=== PATIENT | female | born 1960 | race Caucasian/White ===

== ENCOUNTER → 2016-05-31 | Outpatient (CLI) | payer BC ==
[~2016-05-31] MED LIST: ACET30TAB PO; AMOXIL875 PO; BUPR150T3 PO; BUPR15TA PO; CELEBRE200 PO; COUM2.5T11 PO; CYMBALTA30 PO; DEPA500T2; DICL50TA2 PO; DRIS50002 PO; FLEXERIL10 PO; FOLI1TAB2 PO; LIPI20TA PO; MACROBID PO; METH2.5TA PO; NAPROSY500 PO; NEXI40CA PO; PAXI30TA11 PO; PAXI40TA; PAXIL40 PO; SKELAXIN40 PO; SOMA350 PO; SULF500T2 PO; TUMERIC PO; VICO5TAB; VICODIN PO; VITA500046 PO; ZITHROM500 PO; vit d
--- NOTE | 2016-06-04 09:56 | SLEEPCENT ---
DATE OF STUDY: 05/31/2016 ORDERING PROVIDER: Natty Pham NP Nocturnal polysomnography was performed for evaluation of sleep apnea syndrome symptoms in this patient with a history of snoring and nonrestorative sleep. 8 hours and 43 minutes of data were reviewed. There were 472 minutes of sleep identified. Sleep latency was normal at 9.5 minutes. Rapid eye movement (REM) sleep was delayed at 325 minutes. Sleep architecture improved late in the study after interventions were made. Overall sleep efficiency was 91%. The patient's electrocardiogram (EKG) showed a sinus rhythm with an average heart rate of 88 beats per minute. Electroencephalogram (EEG) showed reasonably normal waveforms for awake and sleep. There were 197 respiratory events identified of 10 seconds in duration or greater for an apnea-hypopnea index of 25. The events were primarily obstructive in nature. Having clearly established the presence of obstructive sleep apnea syndrome, testing was stopped shortly after midnight for the application of pressure therapy. The patient was fit with a ResMed Quattro full face mask of small size. 4 cm of water pressure was applied to the circuit, and the lights were extinguished. The patient quickly reestablished sleep. Sleep progression improved with pressure therapy. Respiratory events were fully suppressed with continuous positive airway pressure (CPAP) of +8, and REM rebound was demonstrated. Remaining measures of sleep physiology were normal. IMPRESSION: Severe obstructive sleep apnea syndrome (G47.33). Apnea-hypopnea index 25. RECOMMENDATION: Nightly use of pressure therapy at 8 cm of water should be sufficient to address the patient's respiratory events.
== END ==
LOC: M SLEEP 19:01
PROVIDERS: ATTEND Nurse Practitioner Adult Health
DX: G47.30 Sleep apnea, unspecified (principal)

== ENCOUNTER → 2016-06-26 | Outpatient (CLI) | payer BC ==
--- NOTE | 2016-06-28 07:06 | RADONC ---
RADIATION ONCOLOGY FOLLOWUP NOTE DATE: 06/26/2016 CHART NUMBER: [id number] DIAGNOSIS: Right breast cancer. STAGE: IIA, [id number] ECOG PERFORMANCE STATUS: 0 FOLLOWUP NOTE: Ms. Matute is a very pleasant, 56-year-old white female with the diagnosis of a stage IIA, [id number] poorly differentiated infiltrating ductal carcinoma of the right breast who is presenting to us today for routine followup visit 1 year of post completion of external beam radiation therapy. The patient presents today reporting that she is doing quite well with no complaints at this time related to her radiation therapy or disease. She has no breast or bone pain. REVIEW OF SYSTEMS: The patient's review of systems is noncontributory. Denies nausea, vomiting, fevers, chills, night sweats, diplopia, headaches, anxiety or depression, anorexia, weight loss, visual disturbances, chest pain, urinary or bowel difficulties, bone pain, or neurological problems. PHYSICAL EXAMINATION: The patient is a well-developed, well-nourished, 56-year-old female, in no acute distress. HEENT exam is normocephalic, atraumatic. Extraocular movements are intact. There is no palpable cervical, supraclavicular, infraclavicular, axillary, or inguinal lymphadenopathy present. Lungs are clear to auscultation and percussion. Heart has a regular rate and rhythm. Abdomen is benign with no hepatosplenomegaly, masses, or tenderness. Breast examination reveals no masses or discharge bilaterally. Skeletal examination reveals no tenderness to pressure or percussion of the bony skeleton. Extremities reveal no clubbing, cyanosis, or edema. Neurologic exam is grossly intact, as is the remainder of the physical examination. ASSESSMENT: The patient is clinically BECKA at this time and will be seen by us again in 6 months for further followup. She will also continue to be followed by her other physicians as well. cc: MD Ramesh Barboza MD *BANDAR Taylor
== END ==
LOC: M ONCR 06-05 14:11
PROVIDERS: ATTEND Radiology Radiation Oncology
DX: C50.411 Malignant neoplasm of upper-outer quadrant of right female breast (principal)

== ENCOUNTER 2016-07-01 09:15 | Outpatient (RCR) | payer BC | END 2016-07-02 | LOC: M PT 09:15 | PROVIDERS: ATTEND Orthopaedic Surgery | DX: Z51.89 Encounter for other specified aftercare (principal); Z47.89 Encounter for other orthopedic aftercare ==

== ENCOUNTER → 2016-07-04 | Outpatient (CLI) | payer BC ==
[2016-07-04 08:33] LABS: ALBUMIN/GLOBULIN RATIO 1.43 (1.00-1.93); ALKALINE PHOSPHATASE 131 U/L (45-117); ALT/SGPT 22 U/L (12-78); ANION GAP 8 MEQ/L (8-16); AST/SGOT 13 U/L (15-37); BILIRUBIN,TOTAL 0.5 MG/DL (0.2-1.0); BLOOD UREA NITROGEN 17 MG/DL (7-18); CALCIUM LEVEL 8.8 MG/DL (8.5-10.1); CARBON DIOXIDE LEVEL 27 MEQ/L (21-32); CHLORIDE LEVEL 108 MEQ/L (98-107); CHOLESTEROL LEVEL 167 MG/DL (<200); CREATININE FOR GFR 0.98 MG/DL (0.55-1.02); GLOMERULAR FILTRATION RATE > 60.0 (>51); GLUCOSE, FASTING 115 MG/DL (70-105); POTASSIUM SERUM 4.1 MEQ/L (3.5-5.1); SODIUM LEVEL 143 MEQ/L (136-145); TOTAL PROTEIN 6.8 GM/DL (6.4-8.2); TRIGLYCERIDES LEVEL 198 MG/DL (<150); URIC ACID 5.6 MG/DL (2.6-6.0)
== END ==
LOC: M LAB 07:43
PROVIDERS: ATTEND Nurse Practitioner Family
DX: M10.9 Gout, unspecified (principal)

== ENCOUNTER 2016-07-31 09:15 | Outpatient (RCR) | payer BC | END 2016-08-02 | LOC: M PT 09:15 | PROVIDERS: ATTEND Orthopaedic Surgery | DX: Z51.89 Encounter for other specified aftercare (principal); Z96.659 Presence of unspecified artificial knee joint ==

== ENCOUNTER 2016-08-29 07:55 | Outpatient (RCR) | payer BC | END 2016-09-01 | LOC: M PT 07:55 | PROVIDERS: ATTEND Orthopaedic Surgery | DX: Z51.89 Encounter for other specified aftercare (principal); Z96.651 Presence of right artificial knee joint ==

== ENCOUNTER 2016-10-01 07:45 | Outpatient (RCR) | payer BC | END 2016-10-02 | LOC: M PT 07:45 | PROVIDERS: ATTEND Orthopaedic Surgery | DX: Z51.89 Encounter for other specified aftercare (principal); Z47.89 Encounter for other orthopedic aftercare ==

== ENCOUNTER → 2016-10-02 | Outpatient (CLI) | payer BC ==
--- NOTE | 2016-10-02 17:40 | REP ---
DIAGNOSTIC MAMMOGRAM LEFT BREAST WITH LEFT BREAST ULTRASOUND: Diagnostic mammogram of the left breast is performed in the MLO and CC projections. The patient reports pain in the upper inner left breast. Patient has a history of right breast cancer. Left breast is unchanged in appearance with no mass or clustered microcalcifications. Real time sonographic evaluation of the left breast is performed in the upper inner aspect. Two tiny cysts are seen in this region up to 3 mm in diameter. No other mass is seen. IMPRESSION: ACR 2 benign. No mass or clustered microcalcifications on the mammogram. There is no mammographic or sonographic evidence of a suspicious mass in the region of the pain in the upper inner left breast. Clinical correlation and followup is recommended. Recommend followup bilateral mammogram December 2016. BI-RADS/ACR category 2 mammogram. Benign finding(s). Routine annual screening mammography (for women over age 40). This mammogram was interpreted with the aid of an FDA-approved computer-aided detection system. The patient states she had a clinical breast exam in 09/2016. The patient letter being requested is M2. Signed by Percy Manning MD 10/03/2016 07:08 P
== END ==
LOC: M RAD 14:07
PROVIDERS: ATTEND Internal Medicine Medical Oncology
DX: N64.4 Mastodynia (principal); Z85.3 Personal history of malignant neoplasm of breast

== ENCOUNTER 2016-10-03 07:43 | Outpatient (RCR) | payer BC ==
[2016-10-21] MEDS ORDERED: VITA50003 (10:25)
== END 2016-10-04 11:57 | disposition home or self-care (01) ==
LOC: M PT 07:43
PROVIDERS: ATTEND Orthopaedic Surgery
DX: Z51.89 Encounter for other specified aftercare (principal); Z96.651 Presence of right artificial knee joint; Z47.89 Encounter for other orthopedic aftercare

== ENCOUNTER → 2016-10-18 | Outpatient (CLI) | payer BC ==
[~2016-10-18] MED LIST changes: +ATOR1TAB21; +CIPRODEX AS; +ESOM1CAP5; +LEFL1TAB4; +PARO15TA; +VITA50003
[2016-10-18 15:32] LABS: FREE T4 0.89 NG/DL (0.76-1.46)
== END ==
LOC: M LAB 11:54
PROVIDERS: ATTEND Nurse Practitioner Family
DX: Z13.29 Encounter for screening for other suspected endocrine disorder (principal)

== ENCOUNTER 2016-10-21 10:13 | Emergency (ER) | payer BC ==
[~2016-10-21] VITALS: Ht 170.2 cm; Wt 101.5 kg
[~2016-10-21 10:13] MED LIST changes: -ATOR1TAB21; -CIPRODEX AS; -COUM2.5T11 PO; +COUM2.5T17 PO; -ESOM1CAP5; -FOLI1TAB2 PO; +FOLI1TAB4 PO; -LEFL1TAB4; -PARO15TA; -VITA50003
[2016-10-21] MEDS ORDERED: PARO15TA (10:25)
[2016-10-21] MEDS ORDERED: ATOR1TAB21 (10:25)
[2016-10-21] MEDS ORDERED: LEFL1TAB4 (10:25)
[2016-10-21] MEDS ORDERED: ESOM1CAP5 (10:25)
[2016-10-21] MEDS ORDERED: VITA1CAP40 (10:25)
[2016-10-21] MEDS ORDERED: CIPROFLOXACIN HC OTIC SUSPENSION AS ONE (13:15)
[2016-10-21] MEDS ORDERED: CIPRODEX AS (13:21)
[2016-10-21 13:28] VITALS: BP 135/90
== END 2016-10-21 13:30 | disposition home or self-care (01) ==
LOC: M ED 12:46
DX: S00.412A Abrasion of left ear, initial encounter (principal); H60.502 Unspecified acute noninfective otitis externa, left ear; X58.XXXA Exposure to other specified factors, initial encounter; Y92.89 Other specified places as the place of occurrence of the external cause; Y93.89 Activity, other specified; Y99.9 Unspecified external cause status

== ENCOUNTER → 2016-12-09 | Outpatient (CLI) | payer BC ==
[~2016-12-09] MED LIST changes: +ATOR1TAB21; +CIPRODEX AS; +ESOM1CAP5; +LEFL1TAB4; +PARO15TA; +VITA1CAP40
--- NOTE | 2016-12-09 11:36 | REP ---
BILATERAL MAMMOGRAM: Bilateral mammogram performed in the MLO and CC projections. Patient complains of pain. There is a history of right breast cancer in 2015. Moderate scattered fibroglandular tissue is again seen bilaterally, unchanged. Tiny stable nodular opacity is seen in the upper left breast. Patient has a history of left-sided complex cysts. No new mass is seen. No clustered microcalcifications are seen. IMPRESSION: ACR 2 benign. No mass or clustered microcalcifications. No new findings. Suggest followup mammogram in 1 year. BI-RADS/ACR category 2 mammogram. Benign finding(s). Routine annual screening mammography (for women over age 40). This mammogram was interpreted with the aid of an FDA-approved computer-aided detection system. A. Negative x-ray reports should not delay biopsy if a dominant or clinically suspicious mass is present. B. Four to eight percent of cancers are not identified by x-ray. C. Adenosis and dense breasts may obscure an underlying neoplasm. The patient states she had a clinical breast exam in 12/2016. The patient letter being requested is M2. Signed by Percy Manning MD 12/10/2016 08:39 A
== END ==
LOC: M RAD 10:16
PROVIDERS: ATTEND Nurse Practitioner Family
DX: C50.911 Malignant neoplasm of unspecified site of right female breast (principal); N64.4 Mastodynia

== ENCOUNTER → 2016-12-11 | Outpatient (CLI) | payer BC ==
--- NOTE | 2016-12-12 07:31 | RADONC ---
RADIATION ONCOLOGY FOLLOWUP NOTE DATE: 12/11/2016 CHART NUMBER: [id number] DIAGNOSIS: Right breast cancer. STAGE: IIA, G9H5vwM6. ECOG PERFORMANCE STATUS: 0 FOLLOWUP NOTE: Ms. Matute is a very pleasant 56-year-old white female with the diagnosis of a stage IIA, [id number] poorly differentiated infiltrating ductal carcinoma of the right breast who is presenting to us today for routine followup visit 1 year and 5 months post completion of external beam radiation therapy. The patient presents today reporting that she is doing quite well with no complaints at this time related to her radiation therapy or disease. She has no breast or bone pain. REVIEW OF SYSTEMS: The patient's review of systems is unremarkable. She denies nausea, vomiting, fevers, chills, night sweats, diplopia, headaches, anxiety or depression, anorexia, weight loss, visual disturbances, chest pain, urinary or bowel difficulties, bone pain, or neurological problems. PHYSICAL EXAMINATION: The patient is a well-developed, well-nourished white female in no acute distress. HEENT exam is normocephalic, atraumatic. Extraocular movements are intact. There is no palpable cervical, supraclavicular, infraclavicular, axillary, or inguinal lymphadenopathy present. Lungs are clear to auscultation and percussion. Heart has a regular rate and rhythm. Abdomen is benign with no hepatosplenomegaly, masses, or tenderness. Breast examination reveals no masses or discharge bilaterally. Skeletal examination reveals no tenderness to pressure or percussion of the bony skeleton. Extremities reveal no clubbing, cyanosis, or edema. Neurologic exam is grossly intact, as is the remainder of the physical examination. ASSESSMENT: The patient is clinically BECKA at this time and will be seen by us again in 6 months for further followup. She will also continue to be followed by her other physicians as well. cc: Felisha Rivera MD, FACP BANDAR Taylor MD
== END ==
LOC: M ONCR 14:38
PROVIDERS: ATTEND Radiology Radiation Oncology
DX: C50.411 Malignant neoplasm of upper-outer quadrant of right female breast (principal)

== ENCOUNTER → 2017-02-04 | Outpatient (CLI) | payer BC ==
[2017-02-04 10:56] LABS: ALBUMIN/GLOBULIN RATIO 1.25 (1.00-1.93); ALKALINE PHOSPHATASE 150 U/L (45-117); ALT/SGPT 37 U/L (12-78); ANION GAP 6 MEQ/L (8-16); AST/SGOT 15 U/L (15-37); BILIRUBIN,TOTAL 0.4 MG/DL (0.2-1.0); BLOOD UREA NITROGEN 13 MG/DL (7-18); CALCIUM LEVEL 9.3 MG/DL (8.5-10.1); CARBON DIOXIDE LEVEL 28 MEQ/L (21-32); CHLORIDE LEVEL 107 MEQ/L (98-107); CHOLESTEROL LEVEL 223 MG/DL (<200); CREATININE FOR GFR 0.86 MG/DL (0.55-1.02); GLOMERULAR FILTRATION RATE > 60.0 (>51); GLUCOSE, FASTING 114 MG/DL (70-105); POTASSIUM SERUM 3.9 MEQ/L (3.5-5.1); SODIUM LEVEL 141 MEQ/L (136-145); TOTAL PROTEIN 7.2 GM/DL (6.4-8.2); TRIGLYCERIDES LEVEL 448 MG/DL (<150)
== END ==
LOC: M LAB 07:51
PROVIDERS: ATTEND Nurse Practitioner Family
DX: E55.9 Vitamin D deficiency, unspecified (principal)

== ENCOUNTER → 2017-02-12 | Outpatient (CLI) | payer BC ==
[2017-02-12 09:42] LABS: BASO # 0.1 10^3/uL (0.0-0.2); BASO % 1.5 % (0.0-1.0); EOS # 0.3 10^3/uL (0.0-0.50); IMMATURE GRANULOCYTE % 0.3 % (0-0); LYMPH # 1.4 10^3/uL (1.5-4.5); LYMPH % 35.2 % (24.0-44.0); MEAN CORPUSCULAR HEMOGLOBIN 30.5 pg (27.0-33.0); MEAN CORPUSCULAR HGB CONC 34.2 g/dl (32.0-36.5); MEAN CORPUSCULAR VOLUME 89.4 fl (80.0-96.0); MONO # 0.5 10^3/uL (0.0-0.8); MONO % 12.1 % (0.0-5.0); NEUTROPHILS # 1.7 10^3/uL (1.8-7.7); NEUTROPHILS % 42.9 % (36.0-66.0); PLATELET COUNT, AUTOMATED 315 10^3/uL (150-450); RED CELL DISTRIBUTION WIDTH 12.6 % (11.5-14.5)
== END ==
LOC: M LAB 09:06
PROVIDERS: ATTEND Nurse Practitioner Family
DX: C50.911 Malignant neoplasm of unspecified site of right female breast (principal)

== ENCOUNTER → 2017-03-31 | Outpatient (CLI) | payer BC ==
[~2017-03-31] MED LIST changes: -ATOR1TAB21; +ATOR1TAB21 PO; -ESOM1CAP5; +ESOM1CAP5 PO; -LEFL1TAB4; +LEFL1TAB4 PO; +VITA100067 PO
--- NOTE | 2017-03-31 16:32 | ECGEPIP ---
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
== END ==
LOC: M EKG 15:02
PROVIDERS: ATTEND Physician Assistant
DX: G56.01 Carpal tunnel syndrome, right upper limb (principal)

== ENCOUNTER 2017-04-09 08:47 | Day surgery (SDC) | payer BC ==
[~2017-04-09] VITALS: Ht 170.2 cm; Wt 98.4 kg
[2017-04-09] MEDS ORDERED: LIDOCAINE 2% INJ 100 MG/5 ML SDV (FOR ANES.) As Ordered ONE (09:16)
[2017-04-09] MEDS ORDERED: PROPOFOL 200 MG/20 ML VIAL As Ordered ONE (09:16)
[2017-04-09] MEDS ORDERED: NS 1,000 ML IV ONE (09:30)
[2017-04-09] MEDS ORDERED: MULTCAP11 PO (09:47)
--- NOTE | 2017-04-09 10:41 | ROOR ---
Patient Name: Kate Matute Procedure Date: 04/09/2017 10:10 AM Date of : 1960 Age: 56 Room: [facility] Gender: Female Note Status: Finalized Procedure: Total Colonoscopy to Cecum + Biopsy Polypectomy Indications: Colon cancer screening in patient at increased risk: Colorectal cancer in mother, High risk colon cancer surveillance: Personal history of colonic polyps Providers: Easton Paz MD Referring MD: Kolby Malik NP Requesting Provider: Medicines: Monitored Anesthesia Care Complications: No immediate complications. Procedure: Pre-Anesthesia Assessment: - The heart rate, respiratory rate, oxygen saturations, blood pressure, adequacy of pulmonary ventilation, and response to care were monitored throughout the procedure. The Colonoscope was introduced through the anus and advanced to the cecum, identified by appendiceal orifice and ileocecal valve. The colonoscopy was performed without difficulty. The patient tolerated the procedure well. The quality of the bowel preparation was excellent. Findings: The perianal and digital rectal examinations were normal. Non-bleeding internal hemorrhoids were found during retroflexion. The hemorrhoids were small and Grade I (internal hemorrhoids that do not prolapse). Scattered small-mouthed diverticula were found in the recto-sigmoid colon and sigmoid colon. A small polyp was found at 50 cm proximal to the anus. The polyp was sessile. The polyp was removed with a jumbo cold forceps. Resection and retrieval were complete. A small polyp was found in the hepatic flexure. The polyp was sessile. The polyp was removed with a jumbo cold forceps. Resection and retrieval were complete. The exam was otherwise without abnormality on direct and retroflexion views. Impression: - Non-bleeding internal hemorrhoids. - Diverticulosis in the recto-sigmoid colon and in the sigmoid colon. - One small polyp at 50 cm proximal to the anus, removed with a jumbo cold forceps. Resected and retrieved. - One small polyp at the hepatic flexure, removed with a jumbo cold forceps. Resected and retrieved. - The examination was otherwise normal on direct and retroflexion views. - No additional abnormalities were found on retroflexion. Recommendation: - Patient has a contact number available for emergencies. The signs and symptoms of potential delayed complications were discussed with the patient. Return to normal activities tomorrow. Written discharge instructions were provided to the patient. - High fiber diet. - Discharge patient to home. - Continue present medications. - Await pathology results. - Telephone GI clinic for pathology results in 1 week. - Repeat colonoscopy in 5 years for surveillance based on pathology results. - Return to referring physician. - The findings and recommendations were discussed with the patient's family. Easton Paz MD Easton Paz MD 04/09/2017 10:40:55 AM This report has been signed electronically. Number of Addenda: 0 Note Initiated On: 04/09/2017 10:10 AM Estimated Blood Loss: Estimated blood loss: none.
[2017-04-09 11:20] VITALS: BP 117/65
== END 2017-04-09 11:17 | disposition home or self-care (01) ==
LOC: M OPP 08:47
PROVIDERS: ATTEND Internal Medicine Gastroenterology
DX: Z12.11 Encounter for screening for malignant neoplasm of colon (principal); Z86.010 Personal history of colon polyps; Z80.0 Family history of malignant neoplasm of digestive organs; Z83.71 Family history of colonic polyps; D12.5 Benign neoplasm of sigmoid colon; D12.3 Benign neoplasm of transverse colon; K64.0 First degree hemorrhoids; K57.30 Diverticulosis of large intestine without perforation or abscess without bleeding; E78.5 Hyperlipidemia, unspecified; Z85.3 Personal history of malignant neoplasm of breast; Z92.21 Personal history of antineoplastic chemotherapy; Z92.3 Personal history of irradiation; R12 Heartburn; K21.9 Gastro-esophageal reflux disease without esophagitis; K82.9 Disease of gallbladder, unspecified; M06.9 Rheumatoid arthritis, unspecified; F32.9 Major depressive disorder, single episode, unspecified; F41.9 Anxiety disorder, unspecified; G47.8 Other sleep disorders; G47.30 Sleep apnea, unspecified; R06.83 Snoring; Z96.652 Presence of left artificial knee joint; Z88.1 Allergy status to other antibiotic agents; Z91.048 Other nonmedicinal substance allergy status; Z79.899 Other long term (current) drug therapy; Z80.1 Family history of malignant neoplasm of trachea, bronchus and lung

== ENCOUNTER → 2017-05-15 | Outpatient (CLI) | payer BC ==
[2017-05-15 10:27] LABS: BASO # 0.1 10^3/uL (0.0-0.2); BASO % 1.2 % (0.0-1.0); EOS # 0.3 10^3/uL (0.0-0.50); EOS % 5.9 % (0.0-3.0); HEMATOCRIT 39.1 % (36.0-47.0); HEMOGLOBIN 13.3 g/dl (12.0-16.0); IMMATURE GRANULOCYTE % 0.2 % (0-0); LYMPH # 1.6 10^3/uL (1.5-4.5); LYMPH % 36.9 % (24.0-44.0); MEAN CORPUSCULAR HEMOGLOBIN 29.8 pg (27.0-33.0); MEAN CORPUSCULAR VOLUME 87.7 fl (80.0-96.0); MONO # 0.5 10^3/uL (0.0-0.8); MONO % 11.3 % (0.0-5.0); NEUTROPHILS # 1.9 10^3/uL (1.8-7.7); NEUTROPHILS % 44.5 % (36.0-66.0); PLATELET COUNT, AUTOMATED 323 10^3/uL (150-450); RED BLOOD COUNT 4.46 10^6/uL (4.00-5.40); RED CELL DISTRIBUTION WIDTH 12.6 % (11.5-14.5); WHITE BLOOD COUNT 4.2 10^3/uL (4.0-10.0)
[2017-05-15 10:48] LABS: ERYTHROCYTE SEDIMENTATION RATE 15 mm/hr (0-30)
[2017-05-15 10:50] LABS: ALT/SGPT 46 U/L (12-78); AST/SGOT 26 U/L (7-37); C REACTIVE PROTEIN QUANTITATIV < 0.30 MG/DL (0.00-0.30); GLOMERULAR FILTRATION RATE > 60.0 (>51)
== END ==
LOC: M LAB 10:00
DX: Z79.899 Other long term (current) drug therapy (principal)
CPT/HCPCS: 84460

== ENCOUNTER → 2017-06-05 | Outpatient (CLI) | payer BC | LOC: M RAD 10:53 | DX: R10.32 Left lower quadrant pain (principal); Z90.721 Acquired absence of ovaries, unilateral; Z90.710 Acquired absence of both cervix and uterus | CPT/HCPCS: 76856 ==

== ENCOUNTER → 2017-06-18 | Outpatient (CLI) | payer BC | LOC: M ONCR 11:12 | DX: Z08 Encounter for follow-up examination after completed treatment for malignant neoplasm (principal); Z85.3 Personal history of malignant neoplasm of breast | CPT/HCPCS: G0463 ==

== ENCOUNTER → 2017-07-14 | Outpatient (CLI) | payer BC | LOC: M SLEEP 19:32 | DX: G47.33 Obstructive sleep apnea (adult) (pediatric) (principal) | CPT/HCPCS: 95811 ==

== ENCOUNTER → 2017-08-07 | Outpatient (CLI) | payer BC ==
[2017-08-07 08:15] LABS: BASO # 0.1 10^3/uL (0.0-0.2); BASO % 1.3 % (0.0-1.0); EOS # 0.2 10^3/uL (0.0-0.50); EOS % 5.2 % (0.0-3.0); HEMATOCRIT 39.3 % (36.0-47.0); HEMOGLOBIN 13.3 g/dl (12.0-15.5); IMMATURE GRANULOCYTE % 0.3 % (0-3.0); LYMPH # 1.3 10^3/uL (1.5-4.5); MEAN CORPUSCULAR HEMOGLOBIN 30.3 pg (27.0-33.0); MEAN CORPUSCULAR HGB CONC 33.8 g/dl (32.0-36.5); MEAN CORPUSCULAR VOLUME 89.5 fl (80.0-96.0); MONO # 0.5 10^3/uL (0.0-0.8); MONO % 12.1 % (0.0-5.0); NEUTROPHILS # 1.9 10^3/uL (1.8-7.7); NEUTROPHILS % 48.1 % (36.0-66.0); PLATELET COUNT, AUTOMATED 304 10^3/uL (150-450); RED BLOOD COUNT 4.39 10^6/uL (4.00-5.40); RED CELL DISTRIBUTION WIDTH 12.6 % (11.5-14.5); WHITE BLOOD COUNT 3.9 10^3/uL (4.0-10.0)
[2017-08-07 08:42] LABS: ALBUMIN 3.9 GM/DL (3.2-5.2); ALBUMIN/GLOBULIN RATIO 1.15 (1.00-1.93); ALKALINE PHOSPHATASE 129 U/L (45-117); ALT/SGPT 56 U/L (12-78); ANION GAP 6 MEQ/L (8-16); AST/SGOT 29 U/L (7-37); BILIRUBIN,TOTAL 0.4 MG/DL (0.2-1.0); BLOOD UREA NITROGEN 15 MG/DL (7-18); CARBON DIOXIDE LEVEL 27 MEQ/L (21-32); CHLORIDE LEVEL 109 MEQ/L (98-107); CHOLESTEROL LEVEL 227 MG/DL (<200); CHOLESTEROL RISK RATIO 5.159 (<5); CREATININE FOR GFR 0.95 MG/DL (0.55-1.30); GLOMERULAR FILTRATION RATE > 60.0 (>51); GLUCOSE, FASTING 128 MG/DL (70-100); HDL CHOLESTEROL 44 MG/DL (>40); NON-HDL-C 183 MG/DL; POTASSIUM SERUM 4.1 MEQ/L (3.5-5.1); SODIUM LEVEL 142 MEQ/L (136-145); TOTAL PROTEIN 7.3 GM/DL (6.4-8.2); TRIGLYCERIDES LEVEL 476 MG/DL (<150); URIC ACID 4.8 MG/DL (2.6-6.0)
[2017-08-07 10:50] LABS: ESTIMATED AVERAGE GLUCOSE 128 MG/DL (60-110); HEMOGLOBIN A1c 6.1 %
[2017-08-07 11:09] LABS: TOTAL 25(OH) VITAMIN D 30.6 NG/ML (30.0-100.0)
== END ==
LOC: M LAB 07:52
DX: M10.9 Gout, unspecified (principal); E78.5 Hyperlipidemia, unspecified; R73.01 Impaired fasting glucose; E55.9 Vitamin D deficiency, unspecified
CPT/HCPCS: 84550

== ENCOUNTER → 2017-08-21 | Outpatient (CLI) | payer BC | LOC: M RAD 11:32 | DX: R10.9 Unspecified abdominal pain (principal) | CPT/HCPCS: 74018 ==

== ENCOUNTER → 2017-09-02 | Outpatient (CLI) | payer BC ==
[~2017-09-02] MED LIST changes: -ACET30TAB PO; -AMOXIL875 PO; -ATOR1TAB21 PO; -BUPR150T3 PO; -BUPR15TA PO; -CELEBRE200 PO; -CIPRODEX AS; -COUM2.5T17 PO; -CYMBALTA30 PO; -DEPA500T2; -DICL50TA2 PO; -DRIS50002 PO; -ESOM1CAP5 PO; -FLEXERIL10 PO; -FOLI1TAB4 PO; +GASTROGRAFIN SOLUTION 30ML (Q9963) As Ordered; +ISOVUE-370 76% 100ML VIAL (Q9967) As Ordered; -LEFL1TAB4 PO; -LIPI20TA PO; -MACROBID PO; -METH2.5TA PO; -NAPROSY500 PO; -NEXI40CA PO; -PARO15TA; -PAXI30TA11 PO; -PAXI40TA; -PAXIL40 PO; -SKELAXIN40 PO; -SOMA350 PO; -SULF500T2 PO; -TUMERIC PO; -VICO5TAB; -VICODIN PO; -VITA100067 PO; -VITA1CAP40; -VITA500046 PO; -ZITHROM500 PO; -vit d
== END ==
LOC: M RAD 12:25
DX: R10.32 Left lower quadrant pain (principal); K76.0 Fatty (change of) liver, not elsewhere classified; K57.90 Diverticulosis of intestine, part unspecified, without perforation or abscess without bleeding; E27.9 Disorder of adrenal gland, unspecified

== ENCOUNTER → 2017-12-01 | Outpatient (CLI) | payer BC ==
[2017-12-01 08:59] LABS: BASO # 0.1 10^3/uL (0.0-0.2); BASO % 1.4 % (0.0-1.0); EOS # 0.2 10^3/uL (0.0-0.50); EOS % 4.7 % (0.0-3.0); HEMATOCRIT 45.2 % (36.0-47.0); IMMATURE GRANULOCYTE % 0.2 % (0-3.0); LYMPH # 1.6 10^3/uL (1.5-4.5); LYMPH % 37.9 % (24.0-44.0); MEAN CORPUSCULAR HEMOGLOBIN 30.2 pg (27.0-33.0); MEAN CORPUSCULAR HGB CONC 33.2 g/dl (32.0-36.5); MEAN CORPUSCULAR VOLUME 91.1 fl (80.0-96.0); MONO # 0.5 10^3/uL (0.0-0.8); MONO % 12.3 % (0.0-5.0); NEUTROPHILS # 1.9 10^3/uL (1.8-7.7); NEUTROPHILS % 43.5 % (36.0-66.0); PLATELET COUNT, AUTOMATED 346 10^3/uL (150-450); RED BLOOD COUNT 4.96 10^6/uL (4.00-5.40); RED CELL DISTRIBUTION WIDTH 12.8 % (11.5-14.5); WHITE BLOOD COUNT 4.3 10^3/uL (4.0-10.0)
[2017-12-01 09:19] LABS: ALT/SGPT 65 U/L (12-78); AST/SGOT 34 U/L (7-37); C REACTIVE PROTEIN QUANTITATIV < 0.30 MG/DL (0.00-0.30); CREATININE FOR GFR 1.03 MG/DL (0.55-1.30); GLOMERULAR FILTRATION RATE 58.4 (>51)
[2017-12-01 10:08] LABS: ERYTHROCYTE SEDIMENTATION RATE 17 mm/hr (0-30)
== END ==
LOC: M LAB 07:59
DX: M06.9 Rheumatoid arthritis, unspecified (principal)
CPT/HCPCS: 84460

== ENCOUNTER → 2017-12-01 | Outpatient (CLI) | payer BC ==
[2017-12-01 08:58] LABS: BASO # 0.1 10^3/uL (0.0-0.2); BASO % 1.9 % (0.0-1.0); EOS # 0.2 10^3/uL (0.0-0.50); EOS % 4.3 % (0.0-3.0); HEMATOCRIT 43.2 % (36.0-47.0); HEMOGLOBIN 14.8 g/dl (12.0-15.5); LYMPH # 1.6 10^3/uL (1.5-4.5); LYMPH % 36.9 % (24.0-44.0); MEAN CORPUSCULAR HEMOGLOBIN 30.5 pg (27.0-33.0); MEAN CORPUSCULAR HGB CONC 34.3 g/dl (32.0-36.5); MEAN CORPUSCULAR VOLUME 89.1 fl (80.0-96.0); MONO # 0.6 10^3/uL (0.0-0.8); NEUTROPHILS # 1.9 10^3/uL (1.8-7.7); NEUTROPHILS % 43.9 % (36.0-66.0); PLATELET COUNT, AUTOMATED 356 10^3/uL (150-450); RED BLOOD COUNT 4.85 10^6/uL (4.00-5.40); RED CELL DISTRIBUTION WIDTH 12.6 % (11.5-14.5); WHITE BLOOD COUNT 4.2 10^3/uL (4.0-10.0)
[2017-12-01 09:25] LABS: TOTAL 25(OH) VITAMIN D 23.7 NG/ML (30.0-100.0)
[2017-12-01 09:54] LABS: ESTIMATED AVERAGE GLUCOSE 128 MG/DL (60-110); HEMOGLOBIN A1c 6.1 %
[2017-12-01 14:26] LABS: ALBUMIN 4.2 GM/DL (3.2-5.2); ALBUMIN/GLOBULIN RATIO 1.17 (1.00-1.93); ALKALINE PHOSPHATASE 128 U/L (45-117); ALT/SGPT 68 U/L (12-78); ANION GAP 14 MEQ/L (8-16); AST/SGOT 28 U/L (7-37); BILIRUBIN,TOTAL 0.3 MG/DL (0.2-1.0); BLOOD UREA NITROGEN 17 MG/DL (7-18); CALCIUM LEVEL 9.6 MG/DL (8.5-10.1); CARBON DIOXIDE LEVEL 22 MEQ/L (21-32); CHLORIDE LEVEL 107 MEQ/L (98-107); CHOLESTEROL LEVEL 226 MG/DL (<200); CREATININE FOR GFR 1.15 MG/DL (0.55-1.30); GLOMERULAR FILTRATION RATE 51.4 (>51); GLUCOSE, FASTING 128 MG/DL (70-100); HDL CHOLESTEROL 50 MG/DL (>40); NON-HDL-C 176 MG/DL; POTASSIUM SERUM 4.5 MEQ/L (3.5-5.1); SODIUM LEVEL 143 MEQ/L (136-145); TOTAL PROTEIN 7.8 GM/DL (6.4-8.2); TRIGLYCERIDES LEVEL 471 MG/DL (<150)
== END ==
LOC: M LAB 08:02
DX: M05.40 Rheumatoid myopathy with rheumatoid arthritis of unspecified site (principal)
CPT/HCPCS: 80053

== ENCOUNTER → 2017-12-10 | Outpatient (CLI) | payer BC | LOC: M ONCR 11:16 | DX: Z08 Encounter for follow-up examination after completed treatment for malignant neoplasm (principal); Z85.3 Personal history of malignant neoplasm of breast; Z92.3 Personal history of irradiation | CPT/HCPCS: G0463 ==

== ENCOUNTER → 2017-12-22 | Outpatient (CLI) | payer BC | LOC: M RAD 09:53 | DX: Z12.31 Encounter for screening mammogram for malignant neoplasm of breast (principal); N60.31 Fibrosclerosis of right breast; N60.32 Fibrosclerosis of left breast | CPT/HCPCS: 77067 ==

== ENCOUNTER → 2018-01-22 | Outpatient (CLI) | payer BC | LOC: M EKG 09:39 | DX: Z01.818 Encounter for other preprocedural examination (principal) | CPT/HCPCS: 93005 ==

== ENCOUNTER 2018-01-23 09:53 | Inpatient (IN) | payer BC ==
[2018-01-22] MEDS: ACETAMINOPHEN 650 MG SUPP PR (14:01)
[2018-01-23 10:18] LABS: HEMOGLOBIN 13.1 g/dl (12.0-15.5); MEAN CORPUSCULAR HEMOGLOBIN 30.3 pg (27.0-33.0); MEAN CORPUSCULAR HGB CONC 33.6 g/dl (32.0-36.5); MEAN CORPUSCULAR VOLUME 90.3 fl (80.0-96.0); PLATELET COUNT, AUTOMATED 279 10^3/uL (150-450); RED BLOOD COUNT 4.32 10^6/uL (4.00-5.40); WHITE BLOOD COUNT 3.9 10^3/uL (4.0-10.0)
[2018-01-23 11:01] LABS: ANION GAP 10 MEQ/L (8-16); BLOOD UREA NITROGEN 10 MG/DL (7-18); CALCIUM LEVEL 8.9 MG/DL (8.5-10.1); CARBON DIOXIDE LEVEL 22 MEQ/L (21-32); CHLORIDE LEVEL 110 MEQ/L (98-107); CREATININE FOR GFR 0.85 MG/DL (0.55-1.30); GLOMERULAR FILTRATION RATE > 60.0 (>51); GLUCOSE, FASTING 101 MG/DL (70-100); POTASSIUM SERUM 3.9 MEQ/L (3.5-5.1); SODIUM LEVEL 142 MEQ/L (136-145)
[2018-01-23] MEDS: LR 1,000 ML IV ×3 (11:40→18:52)
[2018-01-23] MEDS ORDERED: GLYCOPYRROLATE INJ 0.2 MG/ML 2 ML VIAL As Ordered (11:46)
[2018-01-23] MEDS ORDERED: KETOROLAC 60 MG/2 ML VIAL (J1885) As Ordered (11:46)
[2018-01-23] MEDS ORDERED: fentaNYL 100 MCG/2 ML INJECTION (J3010) As Ordered (11:46)
[2018-01-23] MEDS ORDERED: ONDANSETRON 4MG/2ML VIAL (J2405) As Ordered (11:46)
[2018-01-23] MEDS ORDERED: NEOSTIGMINE 10 MG/10 ML VIAL (J2710) As Ordered (11:46)
[2018-01-23] MEDS ORDERED: PROPOFOL 200 MG/20 ML VIAL As Ordered (11:46)
[2018-01-23] MEDS ORDERED: LIDOCAINE 2% INJ 100 MG/5 ML SDV (FOR ANES.) As Ordered (11:46)
[2018-01-23] MEDS ORDERED: MIDAZOLAM INJ 2 MG/2 ML VIAL (J2250) As Ordered (11:46)
[2018-01-23] MEDS ORDERED: dexameTHASONE 4 MG/ML 1ML VIAL (J1100) As Ordered (11:46)
[2018-01-23] MEDS ORDERED: ROCURONIUM BROMIDE 50 MG/5 ML VIAL As Ordered ×2 (11:46→15:09)
[2018-01-23] MEDS: ACETAMINOPHEN 650 MG SUPP As Ordered (13:31)
[2018-01-23] MEDS: ERTAPENEM 1 GM INJ (INVanz) (J1335) As Ordered (14:53)
[2018-01-23] MEDS: BUPIVACAINE/EPIN 0.25% 30 ML VIAL As Ordered (15:35)
[2018-01-23] MEDS ORDERED: NORCO, ANEXSIA 5/325MG TABLET (HYDROcodone/ACETAMINOPHEN) PO ×2 (16:30)
[2018-01-23] MEDS ORDERED: MORPHINE 4 MG/ML 1ML VIAL/SYRINGE (J2270) IV (16:30)
[2018-01-23] MEDS ORDERED: PERCOCET 5MG/325MG TAB PO (17:00)
[2018-01-23] MEDS ORDERED: fentaNYL 100 MCG/2 ML INJECTION (J3010) IV (17:00)
[2018-01-23] MEDS ORDERED: MEPERIDINE INJ 25 MG/ML VIAL (J2175) IV (17:00)
[2018-01-23] MEDS ORDERED: METOCLOPRAMIDE INJ 10MG/2ML VIAL (J2765) IV (17:00)
[2018-01-23] MEDS ORDERED: ONDANSETRON 4MG/2ML VIAL (J2405) IV (17:00)
[2018-01-23] MEDS: ONDANSETRON 4MG/2ML VIAL (J2405) IV (19:55)
[2018-01-23] MEDS: ATORVASTATIN 20 MG TAB PO (21:01)
[2018-01-23] MEDS: SENOKOT S TAB PO (21:01)
[2018-01-23] MEDS: ACETAMINOPHEN TAB 650MG DOSE (2X325MG) PO (21:08)
[2018-01-24] MEDS: LR 1,000 ML IV ×2 (05:00→18:11)
[2018-01-24] MEDS: ACETAMINOPHEN TAB 650MG DOSE (2X325MG) PO ×2 (05:12→14:19)
[2018-01-24 06:15] LABS: BASO % 0.2 % (0.0-1.0); HEMATOCRIT 36.2 % (36.0-47.0); HEMOGLOBIN 12.2 g/dl (12.0-15.5); IMMATURE GRANULOCYTE % 0.1 % (0-3.0); LYMPH # 1.2 10^3/uL (1.5-4.5); LYMPH % 12.5 % (24.0-44.0); MEAN CORPUSCULAR HEMOGLOBIN 30.5 pg (27.0-33.0); MEAN CORPUSCULAR HGB CONC 33.7 g/dl (32.0-36.5); MEAN CORPUSCULAR VOLUME 90.5 fl (80.0-96.0); MONO # 0.7 10^3/uL (0.0-0.8); MONO % 7.7 % (0.0-5.0); NEUTROPHILS # 7.3 10^3/uL (1.8-7.7); NEUTROPHILS % 79.5 % (36.0-66.0); PLATELET COUNT, AUTOMATED 245 10^3/uL (150-450); RED CELL DISTRIBUTION WIDTH 13.1 % (11.5-14.5); WHITE BLOOD COUNT 9.2 10^3/uL (4.0-10.0)
[2018-01-24 06:39] LABS: ANION GAP 8 MEQ/L (8-16); BLOOD UREA NITROGEN 12 MG/DL (7-18); CALCIUM LEVEL 8.2 MG/DL (8.5-10.1); CARBON DIOXIDE LEVEL 27 MEQ/L (21-32); CHLORIDE LEVEL 107 MEQ/L (98-107); CREATININE FOR GFR 1.05 MG/DL (0.55-1.30); GLOMERULAR FILTRATION RATE 57.1 (>51); GLUCOSE, FASTING 145 MG/DL (70-100); POTASSIUM SERUM 4.4 MEQ/L (3.5-5.1); SODIUM LEVEL 142 MEQ/L (136-145)
[2018-01-24] MEDS: PANTOPRAZOLE 40MG INJ (PROTONIX) (C9113) IV (09:01)
[2018-01-24] MEDS: VITAMIN D 1,000 INTERNATIONAL UNITS TABLET PO (09:02)
[2018-01-24] MEDS: buPROPion **XL** TABLET 150MG (WELLBUTRIN XL) PO (09:02)
[2018-01-24] MEDS: KETOROLAC 30 MG/ML VIAL (J1885) IV ×3 (09:02→21:13)
[2018-01-24] MEDS: SENOKOT S TAB PO ×2 (09:02→21:12)
[2018-01-24] MEDS: PARoxetine 10MG TABLET PO (09:02)
[2018-01-24] MEDS: ENOXAPARIN 40 MG/0.4 ML SYRINGE (J1650) SC (09:43)
[2018-01-24] MEDS: ERTAPENEM SODIUM 1 GM in NS MINI-BAG PLUS 50 ML IV (14:20)
[2018-01-24] MEDS: ATORVASTATIN 20 MG TAB PO (21:12)
[2018-01-25] MEDS: KETOROLAC 30 MG/ML VIAL (J1885) IV ×4 (03:13→21:03)
[2018-01-25 07:36] LABS: BASO % 0.3 % (0.0-1.0); EOS # 0.1 10^3/uL (0.0-0.50); EOS % 1.3 % (0.0-3.0); HEMATOCRIT 34.9 % (36.0-47.0); HEMOGLOBIN 11.6 g/dl (12.0-15.5); IMMATURE GRANULOCYTE % 0.5 % (0-3.0); LYMPH # 1.2 10^3/uL (1.5-4.5); LYMPH % 13.1 % (24.0-44.0); MEAN CORPUSCULAR HEMOGLOBIN 30.4 pg (27.0-33.0); MEAN CORPUSCULAR HGB CONC 33.2 g/dl (32.0-36.5); MEAN CORPUSCULAR VOLUME 91.6 fl (80.0-96.0); MONO # 0.5 10^3/uL (0.0-0.8); MONO % 5.4 % (0.0-5.0); NEUTROPHILS # 7.5 10^3/uL (1.8-7.7); NEUTROPHILS % 79.4 % (36.0-66.0); PLATELET COUNT, AUTOMATED 239 10^3/uL (150-450); RED BLOOD COUNT 3.81 10^6/uL (4.00-5.40); RED CELL DISTRIBUTION WIDTH 13.3 % (11.5-14.5); WHITE BLOOD COUNT 9.5 10^3/uL (4.0-10.0)
[2018-01-25] MEDS: ACETAMINOPHEN TAB 650MG DOSE (2X325MG) PO ×2 (07:52→14:09)
[2018-01-25 08:08] LABS: ANION GAP 9 MEQ/L (8-16); BLOOD UREA NITROGEN 10 MG/DL (7-18); CALCIUM LEVEL 8.6 MG/DL (8.5-10.1); CARBON DIOXIDE LEVEL 24 MEQ/L (21-32); CHLORIDE LEVEL 108 MEQ/L (98-107); CREATININE FOR GFR 0.86 MG/DL (0.55-1.30); GLOMERULAR FILTRATION RATE > 60.0 (>51); GLUCOSE, FASTING 120 MG/DL (70-100); SODIUM LEVEL 141 MEQ/L (136-145)
[2018-01-25 08:09] LABS: POTASSIUM SERUM 3.4 MEQ/L (3.5-5.1)
[2018-01-25] MEDS: SENOKOT S TAB PO ×2 (09:16→20:05)
[2018-01-25] MEDS: PANTOPRAZOLE 40MG TAB (PROTONIX) PO (09:16)
[2018-01-25] MEDS: VITAMIN D 1,000 INTERNATIONAL UNITS TABLET PO (09:16)
[2018-01-25] MEDS: buPROPion **XL** TABLET 150MG (WELLBUTRIN XL) PO (09:16)
[2018-01-25] MEDS: PARoxetine 10MG TABLET PO (09:16)
[2018-01-25] MEDS: ENOXAPARIN 40 MG/0.4 ML SYRINGE (J1650) SC (09:16)
[2018-01-25] MEDS: LR 1,000 ML IV (09:17)
[2018-01-25] MEDS: POTASSIUM CHLORIDE 10 MEQ SR TABLET PO ×2 (10:54→14:10)
[2018-01-25] MEDS: ERTAPENEM SODIUM 1 GM in NS MINI-BAG PLUS 50 ML IV (14:10)
[2018-01-25] MEDS: SLF 3 ML SYR IV ×2 (14:10→21:02)
[2018-01-25] MEDS: ATORVASTATIN 20 MG TAB PO (21:02)
[2018-01-26] MEDS: SLF 3 ML SYR IV ×2 (03:47→06:00)
[2018-01-26] MEDS: KETOROLAC 30 MG/ML VIAL (J1885) IV (03:47)
[2018-01-26] MEDS: PANTOPRAZOLE 40MG TAB (PROTONIX) PO (08:29)
[2018-01-26] MEDS: SENOKOT S TAB PO (08:29)
[2018-01-26] MEDS: PARoxetine 10MG TABLET PO (08:29)
[2018-01-26] MEDS: buPROPion **XL** TABLET 150MG (WELLBUTRIN XL) PO (08:29)
[2018-01-26] MEDS: VITAMIN D 1,000 INTERNATIONAL UNITS TABLET PO (08:29)
[2018-01-26] MEDS: ENOXAPARIN 40 MG/0.4 ML SYRINGE (J1650) SC (08:32)
== END 2018-01-26 10:30 | disposition home or self-care (01) | DRG 513 ==
LOC: M SDC 09:53 → M PED 17:53
PROC: 0UT14ZZ Resection of Left Ovary, Percutaneous Endoscopic Approach (ICD-10-PCS; principal; 2018-01-23 12:35)
PROC: 0UB64ZZ Excision of Left Fallopian Tube, Percutaneous Endoscopic Approach (ICD-10-PCS; 2018-01-23 12:35)
PROC: 0DNU4ZZ Release Omentum, Percutaneous Endoscopic Approach (ICD-10-PCS; 2018-01-23 12:35)
PROC: 0DQN4ZZ Repair Sigmoid Colon, Percutaneous Endoscopic Approach (ICD-10-PCS; 2018-01-23 13:44)
DX: N83.202 Unspecified ovarian cyst, left side (principal); N73.6 Female pelvic peritoneal adhesions (postinfective); Z85.3 Personal history of malignant neoplasm of breast; Z92.3 Personal history of irradiation; Z90.721 Acquired absence of ovaries, unilateral; N83.8 Other noninflammatory disorders of ovary, fallopian tube and broad ligament; K91.72 Accidental puncture and laceration of a digestive system organ or structure during other procedure

== ENCOUNTER → 2018-02-10 | Outpatient (CLI) | payer BC ==
[2018-02-10 15:40] LABS: HEMATOCRIT 35.3 % (36.0-47.0); HEMOGLOBIN 11.5 g/dl (12.0-15.5); MEAN CORPUSCULAR HEMOGLOBIN 29.9 pg (27.0-33.0); MEAN CORPUSCULAR HGB CONC 32.6 g/dl (32.0-36.5); MEAN CORPUSCULAR VOLUME 91.7 fl (80.0-96.0); PLATELET COUNT, AUTOMATED 535 10^3/uL (150-450); RED BLOOD COUNT 3.85 10^6/uL (4.00-5.40); RED CELL DISTRIBUTION WIDTH 12.9 % (11.5-14.5); WHITE BLOOD COUNT 9.1 10^3/uL (4.0-10.0)
[2018-02-10 16:24] LABS: ALBUMIN/GLOBULIN RATIO 0.79 (1.00-1.93); ALKALINE PHOSPHATASE 234 U/L (45-117); ALT/SGPT 74 U/L (12-78); ANION GAP 7 MEQ/L (8-16); AST/SGOT 45 U/L (7-37); BILIRUBIN,TOTAL 0.2 MG/DL (0.2-1.0); BLOOD UREA NITROGEN 14 MG/DL (7-18); C REACTIVE PROTEIN QUANTITATIV 8.23 MG/DL (0.00-0.30); CALCIUM LEVEL 8.8 MG/DL (8.5-10.1); CARBON DIOXIDE LEVEL 28 MEQ/L (21-32); CHLORIDE LEVEL 106 MEQ/L (98-107); CREATININE FOR GFR 0.95 MG/DL (0.55-1.30); GLOMERULAR FILTRATION RATE > 60.0 (>51); GLUCOSE, FASTING 107 MG/DL (70-100); SODIUM LEVEL 141 MEQ/L (136-145); TOTAL PROTEIN 6.8 GM/DL (6.4-8.2)
== END ==
LOC: M LAB 14:50
DX: S36.50 Unspecified injury of colon (principal); X58.XXXS Exposure to other specified factors, sequela
CPT/HCPCS: 80053

== ENCOUNTER → 2018-02-10 | Outpatient (CLI) | payer BC ==
[2018-02-10 15:39] LABS: BASO # 0.1 10^3/uL (0.0-0.2); BASO % 0.6 % (0.0-1.0); EOS # 0.3 10^3/uL (0.0-0.50); EOS % 3.1 % (0.0-3.0); HEMATOCRIT 36.1 % (36.0-47.0); HEMOGLOBIN 11.8 g/dl (12.0-15.5); IMMATURE GRANULOCYTE % 0.3 % (0-3.0); LYMPH # 1.9 10^3/uL (1.5-4.5); LYMPH % 20.3 % (24.0-44.0); MEAN CORPUSCULAR HGB CONC 32.7 g/dl (32.0-36.5); MEAN CORPUSCULAR VOLUME 91.9 fl (80.0-96.0); MONO # 1.1 10^3/uL (0.0-0.8); MONO % 11.8 % (0.0-5.0); NEUTROPHILS # 6.1 10^3/uL (1.8-7.7); NEUTROPHILS % 63.9 % (36.0-66.0); PLATELET COUNT, AUTOMATED 535 10^3/uL (150-450); RED BLOOD COUNT 3.93 10^6/uL (4.00-5.40); RED CELL DISTRIBUTION WIDTH 12.8 % (11.5-14.5); WHITE BLOOD COUNT 9.5 10^3/uL (4.0-10.0)
[2018-02-10 16:12] LABS: ERYTHROCYTE SEDIMENTATION RATE 78 mm/hr (0-30)
[2018-02-10 16:23] LABS: ALT/SGPT 76 U/L (12-78); AST/SGOT 43 U/L (7-37); C REACTIVE PROTEIN QUANTITATIV 7.92 MG/DL (0.00-0.30); CREATININE FOR GFR 0.91 MG/DL (0.55-1.30); GLOMERULAR FILTRATION RATE > 60.0 (>51)
== END ==
LOC: M LAB 14:47
DX: M06.9 Rheumatoid arthritis, unspecified (principal)
CPT/HCPCS: 85652

== ENCOUNTER 2018-03-05 07:56 | Emergency (ER) | payer BC ==
[2018-03-05] MEDS: NS 1,000 ML IV (09:31)
[2018-03-05 09:42] LABS: BASO # 0.1 10^3/uL (0.0-0.2); BASO % 0.8 % (0.0-1.0); EOS # 0.2 10^3/uL (0.0-0.50); EOS % 2.6 % (0.0-3.0); HEMATOCRIT 35.4 % (36.0-47.0); HEMOGLOBIN 11.3 g/dl (12.0-15.5); IMMATURE GRANULOCYTE % 0.5 % (0-3.0); LYMPH # 1.3 10^3/uL (1.5-4.5); LYMPH % 17.6 % (24.0-44.0); MEAN CORPUSCULAR HEMOGLOBIN 28.5 pg (27.0-33.0); MEAN CORPUSCULAR HGB CONC 31.9 g/dl (32.0-36.5); MEAN CORPUSCULAR VOLUME 89.2 fl (80.0-96.0); MONO # 0.5 10^3/uL (0.0-0.8); MONO % 6.8 % (0.0-5.0); NEUTROPHILS # 5.2 10^3/uL (1.8-7.7); NEUTROPHILS % 71.7 % (36.0-66.0); PLATELET COUNT, AUTOMATED 433 10^3/uL (150-450); RED BLOOD COUNT 3.97 10^6/uL (4.00-5.40); RED CELL DISTRIBUTION WIDTH 13.8 % (11.5-14.5); WHITE BLOOD COUNT 7.3 10^3/uL (4.0-10.0)
[2018-03-05 09:58] LABS: KETONE, URINE AUTO RFX NEGATIVE (NEGATIVE); LEUKOCYTE ESTERASE UR AUTO RFX NEGATIVE (NEGATIVE); MUCUS, URINE RFX SMALL (NEGATIVE); NITRITE, URINE AUTO RFX NEGATIVE (NEGATIVE); RBC, URINE AUTO RFX 0 /HPF (0-3); SPECIFIC GRAVITY UR AUTO RFX 1.024 (1.002-1.035); SQUAM EPITHELIAL CELL UR AURFX 2 /HPF (0-6); WBC, URINE AUTO RFX 0 /HPF (0-3)
[2018-03-05 10:12] LABS: ANION GAP 8 MEQ/L (8-16); BLOOD UREA NITROGEN 13 MG/DL (7-18); CARBON DIOXIDE LEVEL 26 MEQ/L (21-32); CHLORIDE LEVEL 105 MEQ/L (98-107); CREATININE FOR GFR 0.84 MG/DL (0.55-1.30); GLOMERULAR FILTRATION RATE > 60.0 (>51); GLUCOSE, FASTING 172 MG/DL (70-100); POTASSIUM SERUM 4.3 MEQ/L (3.5-5.1); SODIUM LEVEL 139 MEQ/L (136-145)
[2018-03-05] MEDS ORDERED: ISOVUE-370 76% 100ML VIAL (Q9967) As Ordered (10:23)
[2018-03-05] MEDS: LIDOCAINE W/EPINEPHRINE 1% 20ML VIAL SC (13:09)
== END 2018-03-05 13:52 | disposition home or self-care (01) ==
LOC: M ED 07:56
DX: L76.34 Postprocedural seroma of skin and subcutaneous tissue following other procedure (principal); G47.30 Sleep apnea, unspecified; Z87.440 Personal history of urinary (tract) infections; M51.26 Other intervertebral disc displacement, lumbar region; K21.9 Gastro-esophageal reflux disease without esophagitis; F32.9 Major depressive disorder, single episode, unspecified; F41.9 Anxiety disorder, unspecified
CPT/HCPCS: Q9967

== ENCOUNTER → 2018-03-25 | Outpatient (REF) | payer BC | LOC: M LAB REF 12:15 | DX: L72.0 Epidermal cyst (principal) | CPT/HCPCS: 88305 ==

== ENCOUNTER → 2018-04-06 | Outpatient (CLI) | payer BC | LOC: M RAD 12:43 | DX: M25.522 Pain in left elbow (principal) | CPT/HCPCS: 73080 ==

== ENCOUNTER → 2018-04-09 | Outpatient (CLI) | payer BC | LOC: M RAD 12:12 | DX: M25.532 Pain in left wrist (principal); M70.22 Olecranon bursitis, left elbow | CPT/HCPCS: 73110 ==

== ENCOUNTER → 2018-04-17 | Outpatient (CLI) | payer BC ==
[~2018-04-17] MED LIST changes: +ACET30TAB PO; +AMOXIL875 PO; +APPLTAB2 PO; +ATOR1TAB21 PO; +BUPR150T3 PO; +BUPR15TA PO; +CELEBRE200 PO; +CIPR-249 PO; +CIPRODEX AS; +COUM2.5T17 PO; +CYMBALTA30 PO; +DEPA500T2; +DICL50TA2 PO; +DRIS50003 PO; +ESOM1CAP5 PO; +FLAG500T PO; +FLAX10002 PO; +FLEXERIL10 PO; +FOLI1TAB5 PO; -GASTROGRAFIN SOLUTION 30ML (Q9963) As Ordered; -ISOVUE-370 76% 100ML VIAL (Q9967) As Ordered; +LEFL1TAB4 PO; +LIPI20TA PO; +LOPI600T PO; +MACROBID PO; +METH2.5T48 PO; +MULTCAP11 PO; +NAPROSY500 PO; +NEXI40CA PO; +PARO15TA; +PAXI30TA11 PO; +PAXI40TA; +PAXIL40 PO; +PRED5TA; +SKELAXIN40 PO; +SOMA350 PO; +SULF500T2 PO; +TUMERIC PO; +TURM500T PO; +VICO5TAB; +VICODIN PO; +VITA100067 PO; +VITA500046 PO; +VITA50005; +ZITHROM500 PO; +vit d
--- NOTE | 2018-04-17 18:43 | REP ---
MRI ELBOW: Multiple sequences were obtained in the axial, coronal and sagittal planes. There is mild fluid in the region of the acromion bursa compatible with mild olecranon bursitis. Adjacent triceps tendon is intact. The biceps, brachialis, brachial radialis demonstrate no abnormal signal. The medial and lateral collateral ligaments appear intact. No abnormal signal is seen in the common flexor or extensor tendons. There is no evidence of humeral epicondylitis. There is a normal amount of joint fluid. No ganglion cyst is seen. There is no bone marrow edema or occult fracture. IMPRESSION: Mild olecranon bursitis. Electronically Signed by Percy Manning MD 04/21/2018 02:46 P
== END ==
LOC: M RAD 07:55
PROVIDERS: ATTEND Nurse Practitioner Family
DX: M70.32 Other bursitis of elbow, left elbow (principal)

== ENCOUNTER → 2018-04-29 | Outpatient (CLI) | payer BC ==
[~2018-04-29] MED LIST changes: +FOLI1TAB11 PO; -FOLI1TAB5 PO
[2018-04-29 08:06] LABS: BASO # 0.1 10^3/uL (0.0-0.2); BASO % 0.6 % (0.0-1.0); EOS # 0.1 10^3/uL (0.0-0.50); EOS % 0.6 % (0.0-3.0); HEMATOCRIT 39.6 % (36.0-47.0); HEMOGLOBIN 12.8 g/dl (12.0-15.5); LYMPH # 1.2 10^3/uL (1.5-4.5); LYMPH % 13.5 % (24.0-44.0); MEAN CORPUSCULAR HEMOGLOBIN 28.6 pg (27.0-33.0); MEAN CORPUSCULAR HGB CONC 32.3 g/dl (32.0-36.5); MEAN CORPUSCULAR VOLUME 88.6 fl (80.0-96.0); MONO # 0.8 10^3/uL (0.0-0.8); MONO % 9.2 % (0.0-5.0); NEUTROPHILS # 6.7 10^3/uL (1.8-7.7); NEUTROPHILS % 75.6 % (36.0-66.0); PLATELET COUNT, AUTOMATED 374 10^3/uL (150-450); RED BLOOD COUNT 4.47 10^6/uL (4.00-5.40); WHITE BLOOD COUNT 8.8 10^3/uL (4.0-10.0)
--- NOTE | 2018-04-29 08:12 | REP ---
Clinical: Preoperative assessment . Comparison: 12/21/2015 . Technique: PA and lateral. Findings: The mediastinum and cardiac silhouette are normal. The lung johnson are clear and without acute consolidation, effusion, or pneumothorax. The skeletal structures are intact and normal. Impression: 1. No acute cardiopulmonary process. Electronically Signed by Deandre Carson MD 04/29/2018 08:03 A
[2018-04-29 08:25] LABS: BLOOD UREA NITROGEN 15 MG/DL (7-18); CALCIUM LEVEL 8.8 MG/DL (8.5-10.1); CARBON DIOXIDE LEVEL 25 MEQ/L (21-32); CHLORIDE LEVEL 102 MEQ/L (98-107); CREATININE FOR GFR 0.99 MG/DL (0.55-1.30); GLOMERULAR FILTRATION RATE > 60.0 (>51); GLUCOSE, FASTING 305 MG/DL (70-100); POTASSIUM SERUM 4.1 MEQ/L (3.5-5.1); SODIUM LEVEL 137 MEQ/L (136-145)
[2018-04-29 08:32] LABS: HCG, SERUM QUALITATIVE NEGATIVE (NEGATIVE)
[2018-04-30 18:22] LABS: HEMOGLOBIN A1c 6.9 %
== END ==
LOC: M LAB 07:37
PROVIDERS: ATTEND Nurse Practitioner Family
DX: Z01.812 Encounter for preprocedural laboratory examination (principal); R73.01 Impaired fasting glucose

== ENCOUNTER → 2018-04-29 | Outpatient (CLI) | payer BC ==
[2018-04-29 12:23] LABS: APPEARANCE, URINE CLEAR (CLEAR); BACTERIA, URINE AUTO 1+ (NEGATIVE); BILIRUBIN, URINE AUTO NEGATIVE (NEGATIVE); BLOOD, URINE BLOOD NEGATIVE (NEGATIVE); COLOR, URINE YELLOW (YELLOW); GLUCOSE, URINE (UA) AUTO 3+ mg/dL (NEGATIVE); KETONE, URINE AUTO NEGATIVE (NEGATIVE); LEUKOCYTE ESTERASE, URINE AUTO NEGATIVE (NEGATIVE); MUCUS, URINE SMALL (NEGATIVE); NITRITE, URINE AUTO NEGATIVE (NEGATIVE); PROTEIN, URINE AUTO 2+ mg/dL (NEGATIVE); RBC, URINE AUTO 0 /HPF (0-3); SPECIFIC GRAVITY URINE AUTO 1.028 (1.002-1.035); SQUAMOUS EPITHELIAL CELL UR AU 1 /HPF (0-6); UROBILINOGEN, URINE AUTO 0.2 mg/dL (0.0-2.0); WBC, URINE AUTO 0 /HPF (0-3)
== END ==
LOC: M LAB 11:52
PROVIDERS: ATTEND Nurse Practitioner Family
DX: R39.15 Urgency of urination (principal)

== ENCOUNTER 2018-05-11 07:51 | Day surgery (SDC) | payer BC ==
[~2018-05-11] VITALS: Ht 170.2 cm; Wt 103.0 kg
[2018-05-11] MEDS ORDERED: LR 1,000 ML IV ONE (08:00)
[2018-05-11] MEDS ORDERED: ceFAZolin 2 GM/D5W 50 ML IV BAG (J0690 PER 500MG) As Ordered ONE (08:45)
[2018-05-11] MEDS ORDERED: LIDOCAINE 1% MDV 20ML VIAL As Ordered ONE (11:10)
[2018-05-11] MEDS ORDERED: EPINEPHrine INJ 1 MG/ML 1ML AMP As Ordered ONE (11:10)
[2018-05-11] MEDS ORDERED: ceFAZolin 1GM INJ (J0690 PER 500MG) As Ordered ONE (11:11)
[2018-05-11] MEDS ORDERED: MIDAZOLAM INJ 2 MG/2 ML VIAL (J2250) As Ordered ONE (12:00)
[2018-05-11] MEDS ORDERED: ROCURONIUM BROMIDE 50 MG/5 ML VIAL As Ordered ONE ×2 (12:00→12:06)
[2018-05-11] MEDS ORDERED: fentaNYL 250 MCG/5 ML INJECTION (J3010) As Ordered ONE (12:00)
[2018-05-11] MEDS ORDERED: PROPOFOL 200 MG/20 ML VIAL As Ordered ONE (12:00)
[2018-05-11] MEDS ORDERED: LIDOCAINE 2% INJ 100 MG/5 ML SDV (FOR ANES.) As Ordered ONE (12:00)
[2018-05-11] MEDS ORDERED: dexameTHASONE 4 MG/ML 1ML VIAL (J1100) As Ordered ONE (12:00)
[2018-05-11] MEDS ORDERED: DESFLURANE 240 ML INHALANT As Ordered ONE (12:26)
[2018-05-11] MEDS ORDERED: ONDANSETRON 4MG/2ML VIAL (J2405) As Ordered ONE ×2 (13:57→15:12)
[2018-05-11] MEDS ORDERED: GLYCOPYRROLATE INJ 0.2 MG/ML 2 ML VIAL As Ordered ONE (13:57)
[2018-05-11] MEDS ORDERED: NEOSTIGMINE 10 MG/10 ML VIAL (J2710) As Ordered ONE (13:57)
[2018-05-11] MEDS ORDERED: KETOROLAC 60 MG/2 ML VIAL (J1885) As Ordered ONE (13:57)
--- NOTE | 2018-05-11 15:28 | POST-OPPD ---
Postoperative Procedure Note Date Of Procedure: May 11, 2018 PREOPERATIVE DIAGNOSIS: Right breast scar, left breast ptosis. Breast asymmetry. POSTOPERATIVE DIAGNOSIS: same FINDINGS: Right breast horizontal indented scar s/p lumpectomy. Left breast ptosis, asymmetry. PROCEDURE: Right breast scar revision with fat grafting, left breast mastopexy for symmetry. SURGEON: Dr Weldon ANESTHESIA: GEN SPECIMENS: left breast tissue, liposuction aspirate. ESTIMATED BLOOD LOSS: 100 REPLACED: none DRAINS: none COMPLICATIONS: none POSTOPERATIVE CONDITION: Stable to PACU. DIONICIO WELDON DO May 11, 2018 15:28
[2018-05-11] MEDS ORDERED: NORCO, ANEXSIA 5/325MG TABLET (HYDROcodone/ACETAMINOPHEN) PO PRN (15:30)
[2018-05-11] MEDS ORDERED: fentaNYL 100 MCG/2 ML INJECTION (J3010) IV PRN (15:30)
[2018-05-11] MEDS ORDERED: ONDANSETRON 4MG/2ML VIAL (J2405) IV PRN (15:30)
[2018-05-11] MEDS ORDERED: METOCLOPRAMIDE INJ 10MG/2ML VIAL (J2765) As Ordered ONE (16:01)
[2018-05-11] MEDS ORDERED: METOCLOPRAMIDE INJ 10MG/2ML VIAL (J2765) IV PRN (16:15)
[2018-05-11] MEDS ORDERED: LR 1,000 ML IV SCH (16:15)
[2018-05-11] MEDS ORDERED: PERCOCET 5MG/325MG TAB PO PRN (16:15)
[2018-05-11 17:00] VITALS: BP 150/89
[2018-05-11 17:30] VITALS: BP 137/73
[2018-05-11 18:30] VITALS: BP 121/74
[2018-05-11 19:30] VITALS: BP 133/74
[2018-05-11 20:30] VITALS: BP 121/59
[2018-05-11 22:00] VITALS: BP 123/56
[2018-05-12 02:00] VITALS: BP 116/56
[2018-05-12 06:00] VITALS: BP 137/66
--- NOTE | 2018-05-12 08:21 | IPNPDOC ---
Subjective General Date/Time Seen The patient was seen on 05/12/18 at 08:16. Subject Chief Complaint/History The patient is a 57-year-old female s/p bilateral breast reconstruction POD 1. Doing well. Pain controlled. No complains. Current Medications Current Medications Current Medications Acetaminophen/ Hydrocodone Bitart (Corea, Anexsia 5/325) 1 tab ASDIRECTED PRN PO MILD/MODERATE PAIN (PS 1-7); Start 05/11/18 at 15:30; Stop 05/11/18 at 16:30; Status DC Fentanyl Citrate (Sublimaze) 25 mcg Q5MP PRN IV MODERATE PAIN (PS 4-7) Last administered on 05/11/18at 16:12; Start 05/11/18 at 15:30; Stop 05/11/18 at 16:30; Status DC Lactated Ringer's 1,000 ml @ 50 mls/hr Q20H IV ; Start 05/11/18 at 16:15 Metoclopramide HCl (REGLAN INJection) 10 mg Q6HP PRN IV NAUSEA OR VOMITING Last administered on 05/11/18at 16:13; Start 05/11/18 at 16:15; Stop 05/11/18 at 16:15; Status DC Ondansetron HCl (ZOFRAN INJection) 4 mg Q4HP PRN IV NAUSEA OR VOMITING Last administered on 05/11/18at 13:15; Start 05/11/18 at 15:30; Stop 05/11/18 at 16:30; Status DC Oxycodone/ Acetaminophen (Percocet 5mg/ 325mg Tablet) 1 tab Q4HP PRN PO PAIN; Start 05/11/18 at 16:15 Allergies Coded Allergies: TAPE (Unverified Allergy, Intermediate, rash, 01/23/18) adhesives; steri strips; bandaides ; paper tape blister tega derm if x 24hrs Nitrofurantoin (Unverified Adverse Reaction, Mild, VOMITING, 01/23/18) Objective Physical Examination Examination GENERAL APPEARANCE:Patient seen, laying in bed, awake, alert, and oriented. Comfortable, in no acute distress. SKIN: Warm and moist. LUNGS: Clear to auscultation bilaterally. No wheezing appreciated. HEART: No chest wall abnormalities. Regular rate and rhythm with no murmurs appreciated. ABDOMEN: Abdomen is soft with post op echymosis. 2 small stab incisions lower abdomen, no redness, intact. BREAST: Right breast with post op swelling and echymosis. Soft. Left breasts: NAC viable, incision intact, post op echymosis minimal around the incision areas. Soft. Vital Signs Vital Signs Date Time Temp Pulse Resp B/P (MAP) Pulse Ox O2 Delivery O2 Flow Rate FiO2 05/12/18 06:00 97.4 101 18 137/66 (89) 97 Room Air 05/11/18 18:48 2.0 I&Os I&O- Last 24 Hours up to 6 AM 05/12/18 06:00 Intake Total 3050 ml Output Total 700 ml Balance 2350 ml Impression Bilateral breast reconstruction. Left mastopexy, right post lumpectomy scar revision. Pain controlled Tolerating diet, ambulating Stable for discharge F/up plastic surgery FridayMay 15. Instruction given Dressings changed Plan / VTE VTE Prophylaxis Ordered?: Yes DIONICIO WELDON DO May 12, 2018 08:21
[2018-05-12] MEDS ORDERED: ACET30TAB PO (08:23)
--- NOTE | 2018-05-12 16:22 | RO ---
DATE OF PROCEDURE: 05/11/2018 PREOPERATIVE DIAGNOSES: Right breast scar, left breast ptosis, and breast asymmetry. POSTOPERATIVE DIAGNOSES: Right breast scar, left breast ptosis, and breast asymmetry. PROCEDURE: Right breast scar revision with fat grafting and a left breast mastopexy for symmetry. ATTENDING SURGEON: Dr. Neyda Polanco ANESTHESIA: General. SPECIMENS SENT: Left breast tissue and liposuction aspirate. BLOOD LOSS: 100 mL. There was no replacement needed. No drains. No complications. DESCRIPTION OF PROCEDURE: This is a 57-year-old female who was seen in our office complaining of significant asymmetry that she has between her right and her left breast as well as indented scar on the right breast status post lumpectomy for breast CA surgery on that side. Patient inquires if the reconstruction could be completed to make the breasts more symmetrical. Patient was offered a fat transfer to the right breast to augment the scar and augment the breast and also do mastopexy on the left side for symmetry. All risks and benefits and alternatives discussed with the patient, and she is ready to proceed. Special discussion regarding fat regression and post op swelling was addressed as each side will settle down at different pace due to difference type of reconstruction. On the day of surgery, informed consent was confirmed in the holding area. She was marked in upright position in the preoperative holding area, and then she was brought into the operating room, placed in supine position with sequential stockings placed on lower calves and antibiotics given. General anesthesia was induced. She was prepped and draped in the usual sterile fashion. We started our procedure by collecting the fat from the abdomen. Two small stab incisions were done along the lower abdomen, and tumescent solution was infiltrated throughout the abdomen, totaling 1000 mL tumescent solution with normal saline and 20 mL of 1% lidocaine and 1 amp of epinephrine. 1000 mL was infiltrated in the abdomen. Also, 200 mL was infiltrated in the lateral chest bilaterally where the excess skin and fat was located lateral to the breast. Suction-assisted lipectomy was performed and all fat was collected in the enclosed circuit system in a sterile container. Total aspirate between the abdomen and the lateral chest was 1250 mL. At this point, the vibrating system was initiated to separate the fat from the liposuction fluid. 1 gram of Ancef was also diluted into that aspirate. While the separation was completing, we turned our attention to the left breast. We outlined the nipple areolar complex at 52 mm in diameter, which is matching to the right breast nipple areolar complex. The right nipple areolar complex is at 23.5 from sternal notch, and the left one was at 26 and now it is going to go up to 23.5 cm from the sternal notch. The lollipop incision was outlined, and the nipple areolar complex was measured at 52 and the incision was carried out using #10 blade. Then the superior portion of the skin was de-epithelialized using Sharp scissors, and then a separate incision was done by a #10 blade along the vertical portion of the scar and the middle portion of the left breast was resected together with the skin. After the resection completed, hemostasis obtained using electrocautery and we were able to do a good approximation on the left side. We had a good volume, so we started our closure with the vertical limb. #3-0 Monocryl were placed in the superior portion of the vertical limb and then closure began. Then, the pillars were closed with #0 Vicryl sutures, giving an additional support and recreating the breast mound. Then, the nipple areolar complex was set in place at 23.5 cm from the sternal notch and the vertical limb measured to mimic the right side, which was 9.5; and at 9.5 also, the excess skin on the left side was resected using electrocautery and a small horizontal scar was created. No need for additional drainage; very small amount of space. Nipple areolar complex was set in place by suturing in layers with #3-0 Monocryl sutures and #5-0 plain running. Then, we turned our attention back to the right side, and the fat was infiltrated using the enclosed system injector with 4 mm canula, totaling 500 mL on the right breast, mostly medially and superiorly and as well as into the area of the horizontal scar, giving a slightly larger volume as the left breast to accommodate for fat regression. The small stab incisions were all closed with #4-0 Monocryl sutures. Abdominal binder, Xeroform for dressing, gauze, and a support bra were placed on the patient. She was extubated in the operating room without any difficulty and transferred to recovery room in stable condition. The total tumescent solution was 1200 mL. Total liposuction aspirate was 1250 mL, and injected for the right breast was 500. MTDD
== END 2018-05-12 09:30 | disposition home or self-care (01) ==
LOC: M SDC 07:51 → M MS5PR 16:40 → M SDC 05-12 09:30
PROVIDERS: ATTEND Plastic Surgery Surgery of the Hand
DX: C50.411 Malignant neoplasm of upper-outer quadrant of right female breast (principal); L90.5 Scar conditions and fibrosis of skin; N64.89 Other specified disorders of breast; F41.9 Anxiety disorder, unspecified; F32.9 Major depressive disorder, single episode, unspecified; K21.9 Gastro-esophageal reflux disease without esophagitis; G47.30 Sleep apnea, unspecified; Z88.8 Allergy status to other drugs, medicaments and biological substances; Z92.3 Personal history of irradiation; Z92.21 Personal history of antineoplastic chemotherapy; Z79.899 Other long term (current) drug therapy; E78.5 Hyperlipidemia, unspecified
CPT/HCPCS: 19316; 19366; 88300; 88305; J0690; J1100; J1885; J2250; J2405; J2710; J2765; J3010

== ENCOUNTER → 2018-06-15 | Outpatient (CLI) | payer BC ==
[2018-06-15 09:13] LABS: ALT/SGPT 28 U/L (12-78); C REACTIVE PROTEIN QUANTITATIV < 0.30 MG/DL (0.00-0.30); CREATININE FOR GFR 0.89 MG/DL (0.55-1.30); GLOMERULAR FILTRATION RATE > 60.0 (>45)
[2018-06-15 09:14] LABS: BASO # 0.1 10^3/uL (0.0-0.2); BASO % 1.3 % (0.0-1.0); EOS # 0.2 10^3/uL (0.0-0.50); EOS % 4.6 % (0.0-3.0); HEMATOCRIT 40.5 % (36.0-47.0); HEMOGLOBIN 13.2 g/dl (12.0-15.5); LYMPH # 1.6 10^3/uL (1.5-4.5); LYMPH % 39.5 % (24.0-44.0); MEAN CORPUSCULAR HEMOGLOBIN 28.9 pg (27.0-33.0); MEAN CORPUSCULAR HGB CONC 32.6 g/dl (32.0-36.5); MEAN CORPUSCULAR VOLUME 88.6 fl (80.0-96.0); MONO # 0.5 10^3/uL (0.0-0.8); NEUTROPHILS # 1.6 10^3/uL (1.8-7.7); NEUTROPHILS % 41.6 % (36.0-66.0); PLATELET COUNT, AUTOMATED 303 10^3/uL (150-450); RED BLOOD COUNT 4.57 10^6/uL (4.00-5.40); WHITE BLOOD COUNT 3.9 10^3/uL (4.0-10.0)
[2018-06-15 09:50] LABS: ERYTHROCYTE SEDIMENTATION RATE 20 mm/hr (0-30)
== END ==
LOC: M LAB 07:52
PROVIDERS: ATTEND Physician Assistant Medical
DX: M05.79 Rheumatoid arthritis with rheumatoid factor of multiple sites without organ or systems involvement (principal)

== ENCOUNTER → 2018-06-15 | Outpatient (CLI) | payer BC ==
[2018-06-15 09:40] LABS: HEMOGLOBIN A1c 7.4 %
== END ==
LOC: M LAB 07:58
PROVIDERS: ATTEND Nurse Practitioner Family
DX: E11.9 Type 2 diabetes mellitus without complications (principal)

== ENCOUNTER → 2018-07-21 | Outpatient (CLI) | payer BC ==
[~2018-07-21] MED LIST changes: +METF500T13 PO
[2018-07-21 18:00] LABS: COLLAGEN EPINEPHRINE 102 SECONDS (74-162)
== END ==
LOC: M LAB 16:33
PROVIDERS: ATTEND Ophthalmology
DX: H02.831 Dermatochalasis of right upper eyelid (principal); H02.834 Dermatochalasis of left upper eyelid; H02.423 Myogenic ptosis of bilateral eyelids

== ENCOUNTER → 2018-07-23 | Outpatient (CLI) | payer BC ==
[2018-07-23 10:24] LABS: FREE T4 0.88 NG/DL (0.76-1.46); FREE THYROXINE INDEX 2.5 % (1.3-4.8); RHEUMATOID FACTOR QUANT 27.8 IU/ML (<15.0); T UPTAKE 28 % (30-39); THYROID STIMULATING HORMONE 0.986 uIU/ML (0.358-3.740); THYROXINE (T4) 8.9 UG/DL (4.5-12.0); TOTAL PROTEIN 7.2 GM/DL (6.4-8.2)
[2018-07-23 10:25] LABS: FOLATE 19.6 NG/ML; VITAMIN B12 LEVEL 501 PG/ML
[2018-07-24 14:44] LABS: ANTINUCLEAR ANTIBODIES DIRECT Negative (Negative)
[2018-07-26 00:07] LABS: VITAMIN E(ALPHA TOCOPHEROL) 22.7 mg/L (9.0-29.0); VITAMIN E(GAMMA TOCOPHEROL) 2.2 mg/L (0.5-4.9)
[2018-07-27 14:42] LABS: ALBUMIN 4.41 GM/DL (3.29-5.55); ALBUMIN % 61.2 % (55.8-66.1); ALPHA-1-GLOBULIN % 4.2 % (2.9-4.9); ALPHA-2-GLOBULINS 0.79 GM/DL (0.42-0.99); BETA-1-GLOBULINS 0.48 GM/DL (0.28-0.60); BETA-1-GLOBULINS % 6.7 % (4.7-7.2); BETA-2-GLOBULINS 0.35 GM/DL (0.19-0.55); BETA-2-GLOBULINS % 4.8 % (3.2-6.5); GAMMA GLOBULIN % 12.1 % (11.1-18.8); GAMMA GLOBULINS 0.87 GM/DL (0.65-1.58)
[2018-07-28 10:20] LABS: DRVV SCREEN 46.5 SEC
[2018-07-28 10:23] LABS: PTT LUPUS TYPE ANTICOAG SCREEN 1.1 (0-1.2)
[2018-07-28 14:12] LABS: VITAMIN B6,PYRIDOXAL PHOSPHATE 12.7 ug/L (2.0-32.8)
== END ==
LOC: M LAB 08:58
PROVIDERS: ATTEND Psychiatry & Neurology Neurology
DX: G62.9 Polyneuropathy, unspecified (principal); Z79.899 Other long term (current) drug therapy

== ENCOUNTER → 2018-08-11 | Outpatient (CLI) | payer BC ==
[~2018-08-11] MED LIST changes: +ACET-716 PO; -ACET30TAB PO
[2018-08-11 19:47] LABS: BASO % 0.3 % (0.0-1.0); EOS # 0.1 10^3/uL (0.0-0.50); EOS % 0.6 % (0.0-3.0); HEMOGLOBIN 12.2 g/dl (12.0-15.5); LYMPH # 1.8 10^3/uL (1.5-4.5); LYMPH % 14.3 % (24.0-44.0); MEAN CORPUSCULAR HGB CONC 32.1 g/dl (32.0-36.5); MEAN CORPUSCULAR VOLUME 90.5 fl (80.0-96.0); MONO # 1.6 10^3/uL (0.0-0.8); MONO % 12.8 % (0.0-5.0); NEUTROPHILS # 8.9 10^3/uL (1.8-7.7); NEUTROPHILS % 71.5 % (36.0-66.0); PLATELET COUNT, AUTOMATED 391 10^3/uL (150-450); WHITE BLOOD COUNT 12.4 10^3/uL (4.0-10.0)
[2018-08-11 19:58] LABS: ALBUMIN 3.3 GM/DL (3.2-5.2); ALT/SGPT 88 U/L (12-78); BILIRUBIN,TOTAL 0.5 MG/DL (0.2-1.0); BLOOD UREA NITROGEN 11 MG/DL (7-18); CALCIUM LEVEL 9.2 MG/DL (8.8-10.2); CARBON DIOXIDE LEVEL 26 MEQ/L (21-32); CHLORIDE LEVEL 100 MEQ/L (98-107); GLOMERULAR FILTRATION RATE > 60.0 (>45); GLUCOSE, FASTING 140 MG/DL (70-100); SODIUM LEVEL 136 MEQ/L (136-145); TOTAL PROTEIN 7.3 GM/DL (6.4-8.2)
[2018-08-11 23:27] LABS: CHLAMYDIA DNA AMPLIFICATION NEGATIVE (NEGATIVE); GC DNA AMPLIFICATION NEGATIVE (NEGATIVE)
== END ==
LOC: M WUC 16:10
PROVIDERS: ATTEND Physician Assistant
DX: R30.0 Dysuria (principal)

== ENCOUNTER → 2018-08-14 | Outpatient (CLI) | payer BC ==
--- NOTE | 2018-08-14 17:02 | REP ---
Supine abdomen two views: Comparison is 08/21/2017. The bowel gas pattern is normal. There are pelvic calcifications, unchanged, likely phleboliths. There are abdominal right upper quadrant surgical clips, unchanged. 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 Impression: Normal bowel gas pattern. Electronically Signed by Percy Arthur MD 08/14/2018 04:53 P
== END ==
LOC: M RAD 15:46
PROVIDERS: ATTEND Nurse Practitioner Family
DX: R10.9 Unspecified abdominal pain (principal)

== ENCOUNTER → 2018-08-24 | Outpatient (CLI) | payer BC ==
[2018-08-24 10:22] LABS: APPEARANCE, URINE CLOUDY (CLEAR); BACTERIA, URINE AUTO 1+ (NEGATIVE); BILIRUBIN, URINE AUTO NEGATIVE (NEGATIVE); BLOOD, URINE BLOOD NEGATIVE (NEGATIVE); COLOR, URINE YELLOW (YELLOW); GLUCOSE, URINE (UA) AUTO NEGATIVE (NEGATIVE); KETONE, URINE AUTO NEGATIVE (NEGATIVE); LEUKOCYTE ESTERASE, URINE AUTO NEGATIVE (NEGATIVE); MUCUS, URINE SMALL (NEGATIVE); NITRITE, URINE AUTO NEGATIVE (NEGATIVE); PROTEIN, URINE AUTO NEGATIVE (NEGATIVE); RBC, URINE AUTO 2 /HPF (0-3); SQUAMOUS EPITHELIAL CELL UR AU 4 /HPF (0-6); UROBILINOGEN, URINE AUTO 0.2 mg/dL (0.0-2.0); WBC, URINE AUTO 9 /HPF (0-3)
[2018-08-24 12:51] LABS: HEMOGLOBIN A1c 7.2 %
== END ==
LOC: M LAB 09:00
PROVIDERS: ATTEND Nurse Practitioner Family
DX: E11.9 Type 2 diabetes mellitus without complications (principal); N39.0 Urinary tract infection, site not specified

== ENCOUNTER → 2018-08-26 | Outpatient (REF) | payer BC | LOC: M LAB REF 12:18 | PROVIDERS: ATTEND Nurse Practitioner Family | DX: N39.0 Urinary tract infection, site not specified (principal) ==

== ENCOUNTER → 2018-11-02 | Outpatient (CLI) | payer BC ==
[~2018-11-02] MED LIST changes: +FENO1CAP17 PO; +GABA-1171 PO; +MULTTAB86 PO; +TURM500C PO
[2018-11-02 07:44] LABS: BASO # 0.1 10^3/uL (0.0-0.2); BASO % 1.3 % (0.0-1.0); EOS # 0.3 10^3/uL (0.0-0.50); EOS % 6.4 % (0.0-3.0); HEMATOCRIT 39.9 % (36.0-47.0); HEMOGLOBIN 13.3 g/dl (12.0-15.5); LYMPH # 1.5 10^3/uL (1.5-4.5); LYMPH % 27.2 % (24.0-44.0); MEAN CORPUSCULAR HEMOGLOBIN 29.6 pg (27.0-33.0); MEAN CORPUSCULAR HGB CONC 33.3 g/dl (32.0-36.5); MEAN CORPUSCULAR VOLUME 88.9 fl (80.0-96.0); MONO # 0.5 10^3/uL (0.0-0.8); MONO % 10.1 % (0.0-5.0); NEUTROPHILS # 2.9 10^3/uL (1.8-7.7); NEUTROPHILS % 54.6 % (36.0-66.0); PLATELET COUNT, AUTOMATED 315 10^3/uL (150-450); RED BLOOD COUNT 4.49 10^6/uL (4.00-5.40); WHITE BLOOD COUNT 5.3 10^3/uL (4.0-10.0)
[2018-11-02 08:09] LABS: ALBUMIN 3.7 GM/DL (3.2-5.2); ALT/SGPT 127 U/L (12-78); BILIRUBIN,TOTAL 0.3 MG/DL (0.2-1.0); BLOOD UREA NITROGEN 14 MG/DL (7-18); CALCIUM LEVEL 8.8 MG/DL (8.8-10.2); CARBON DIOXIDE LEVEL 24 MEQ/L (21-32); CHLORIDE LEVEL 104 MEQ/L (98-107); CHOLESTEROL LEVEL 303 MG/DL (<200); CHOLESTEROL RISK RATIO 7.575 (<5); CREATININE FOR GFR 0.92 MG/DL (0.55-1.30); GLOMERULAR FILTRATION RATE > 60.0 (>45); GLUCOSE, FASTING 230 MG/DL (70-100); HDL CHOLESTEROL 40 MG/DL (>40); NON-HDL-C 263 MG/DL; POTASSIUM SERUM 4.2 MEQ/L (3.5-5.1); SODIUM LEVEL 140 MEQ/L (136-145); TOTAL PROTEIN 7.3 GM/DL (6.4-8.2); TRIGLYCERIDES LEVEL 849 MG/DL (<150)
[2018-11-02 09:54] LABS: TOTAL 25(OH) VITAMIN D 24.3 NG/ML (30.0-100.0)
== END ==
LOC: M LAB 07:10
PROVIDERS: ATTEND Nurse Practitioner Family
DX: E55.9 Vitamin D deficiency, unspecified (principal); E11.9 Type 2 diabetes mellitus without complications; E78.49 Other hyperlipidemia

== ENCOUNTER → 2018-11-10 | Outpatient (CLI) | payer BC ==
[~2018-11-10] MED LIST changes: -FENO1CAP17 PO; -GABA-1171 PO; -MULTTAB86 PO; -TURM500C PO
[2018-11-10 07:53] LABS: ALBUMIN 3.7 GM/DL (3.2-5.2); ALT/SGPT 82 U/L (12-78); BILIRUBIN,DIRECT < 0.1 MG/DL (0.0-0.2); BILIRUBIN,TOTAL 0.2 MG/DL (0.2-1.0); CHOLESTEROL LEVEL 265 MG/DL (<200); CHOLESTEROL RISK RATIO 6.973 (<5); FERRITIN 108 NG/ML (8-252); HDL CHOLESTEROL 38 MG/DL (>40); IRON (FE) 68 UG/DL (50-170); NON-HDL-C 227 MG/DL; PERCENT SATURATION 20.5 % (13.2-45.0); TOTAL IRON BINDING CAPACITY 332 UG/DL (250-450); TOTAL PROTEIN 7.3 GM/DL (6.4-8.2); TRIGLYCERIDES LEVEL 822 MG/DL (<150)
[2018-11-11 08:39] LABS: HEPATITIS B SURFACE ANTIGEN NEGATIVE (NEGATIVE)
[2018-11-11 09:05] LABS: HEPATITIS C VIRUS ABY INDEX 0.1 INDEX (<0.8)
[2018-11-11 09:06] LABS: HEPATITIS B CORE ANTIBODY IGM NEGATIVE (NEGATIVE)
[2018-11-11 09:08] LABS: HEPATITIS A ANTIBODY IGM NEGATIVE (NEGATIVE)
[2018-11-11 10:06] LABS: CERULOPLASMIN 28.5 mg/dL (19.0-39.0); LDL DIRECT 102 mg/dL (0-99)
== END ==
LOC: M LAB 07:02
PROVIDERS: ATTEND Nurse Practitioner Family
DX: R74.0 Nonspecific elevation of levels of transaminase and lactic acid dehydrogenase [LDH] (principal); E78.5 Hyperlipidemia, unspecified

== ENCOUNTER → 2018-12-09 | Outpatient (CLI) | payer BC ==
[2018-12-09 08:41] LABS: ALBUMIN 3.9 GM/DL (3.2-5.2); BILIRUBIN,DIRECT 0.1 MG/DL (0.0-0.2); BILIRUBIN,TOTAL 0.3 MG/DL (0.2-1.0); CHOLESTEROL RISK RATIO 3.96 (<5); TOTAL PROTEIN 7.1 GM/DL (6.4-8.2)
--- NOTE | 2018-12-09 09:12 | REP ---
Clinical: Abnormal liver function tests. Technique: Real time renner scale and color evaluation using curved array transducer. Findings: Liver is increased in echogenicity with poor through transmission suggesting fatty infiltration. The pancreas is incompletely evaluated due to interposed bowel gas and technical factors. The patient is known to be status post cholecystectomy. No biliary ductal dilatation is appreciated and the common bile duct measures 5.4 mm diameter. The right kidney is normal in reniform shape without hydronephrosis and measures 12.2 x 6.2 x 5.0 cm. No ascites. Impression: Hepatic steatosis and/or hepatocellular disease. Further evaluation is limited due to associated technical factors including poor through transmission. Electronically Signed by Deandre Carson MD 12/09/2018 09:04 A
[2018-12-10 08:19] LABS: LDL DIRECT 110 mg/dL (0-99)
== END ==
LOC: M LAB 07:26
PROVIDERS: ATTEND Nurse Practitioner Family
DX: E78.5 Hyperlipidemia, unspecified (principal); R74.0 Nonspecific elevation of levels of transaminase and lactic acid dehydrogenase [LDH]

== ENCOUNTER → 2019-01-07 | Outpatient (CLI) | payer BC ==
[~2019-01-07] MED LIST changes: +FENO130C PO; +GABA-1171 PO; +MULTTAB86 PO; +TURM500C PO
--- NOTE | 2019-01-07 09:30 | REPMRS ---
Patient History The patient states she had a clinical breast exam in 2018. Family history of colorectal cancer at age 50 or over in mother. Malignant lumpectomy, December 30, 2014. Benign excisional biopsy of the left breast, 2001. Benign cyst aspiration of both breasts. Chemotherapy. Radiation therapy. Patient had a left breast reduction and lift w/fat injection in right breast 05/2018 3D TOMOSYNTHESIS WAS PERFORMED. Digital Mammo Screening Bilat: January 07, 2019 - Exam #: [id number] Bilateral CC and MLO view(s) were taken. Technologist: Linda Thomas, Technologist Prior study comparison: December 22, 2017, bilateral digital mammo screening bilat performed at [facility]. December 09, 2016, digital mammo diagnostic bilateral performed at [facility]. FINDINGS: The breast tissue is heterogeneously dense. This may lower the sensitivity of mammography. There has been no change in the appearance of the mammogram from the prior studies. There is a moderate amount of residual fibroglandular tissue which is fairly symmetric. There is no interval development of dominant mass, areas of architectural distortion, or clustered microcalcification typical of malignancy. Assessment: BI-RADS/ACR category 1 mammogram. Negative Mammogram. Recommendation Routine screening mammogram in 1 year (for women over age 40). This mammogram was interpreted with the aid of an FDA-approved computer-aided dectection system. Electronically Signed By: Percy Manning MD 01/07/19 [id number]
== END ==
LOC: M RAD 08:47
PROVIDERS: ATTEND Nurse Practitioner Family
DX: Z12.31 Encounter for screening mammogram for malignant neoplasm of breast (principal)

== ENCOUNTER → 2019-01-14 | Outpatient (CLI) | payer BC ==
[2019-01-14 09:07] LABS: BASO # 0.1 10^3/uL (0.0-0.2); BASO % 1.4 % (0.0-1.0); EOS # 0.2 10^3/uL (0.0-0.5); EOS % 4.9 % (0.0-3.0); HEMATOCRIT 39.1 % (36.0-47.0); HEMOGLOBIN 13.3 g/dl (12.0-15.5); LYMPH # 1.4 10^3/uL (1.5-5.0); LYMPH % 32.2 % (24.0-44.0); MEAN CORPUSCULAR HEMOGLOBIN 30.2 pg (27.0-33.0); MEAN CORPUSCULAR VOLUME 88.9 fl (80.0-96.0); MONO # 0.5 10^3/uL (0.0-0.8); MONO % 11.3 % (0.0-5.0); NEUTROPHILS # 2.1 10^3/uL (1.5-8.5); PLATELET COUNT, AUTOMATED 326 10^3/uL (150-450); WHITE BLOOD COUNT 4.3 10^3/uL (4.0-10.0)
[2019-01-14 09:30] LABS: HEMOGLOBIN A1c 7.8 %
[2019-01-14 09:35] LABS: ALBUMIN 4.1 GM/DL (3.2-5.2); ALT/SGPT 75 U/L (12-78); BILIRUBIN,TOTAL 0.3 MG/DL (0.2-1.0); BLOOD UREA NITROGEN 15 MG/DL (7-18); CALCIUM LEVEL 9.5 MG/DL (8.8-10.2); CARBON DIOXIDE LEVEL 24 MEQ/L (21-32); CHLORIDE LEVEL 108 MEQ/L (98-107); CHOLESTEROL LEVEL 196 MG/DL (<200); CHOLESTEROL RISK RATIO 4.355 (<5); CREATININE FOR GFR 0.93 MG/DL (0.55-1.30); GLOMERULAR FILTRATION RATE > 60.0 (>45); GLUCOSE, FASTING 149 MG/DL (70-100); HDL CHOLESTEROL 45 MG/DL (>40); LDL CHOLESTEROL 72 MG/DL (<100); NON-HDL-C 151 MG/DL; POTASSIUM SERUM 4.3 MEQ/L (3.5-5.1); SODIUM LEVEL 142 MEQ/L (136-145); TOTAL PROTEIN 7.1 GM/DL (6.4-8.2); TRIGLYCERIDES LEVEL 395 MG/DL (<150)
[2019-01-14 09:44] LABS: MALB URINE SIEMENS 42.5 MG/L; MAU/CREAT RATIO 21.2 MCG/MG (0.0-30.0)
== END ==
LOC: M LAB 08:24
PROVIDERS: ATTEND Physician Assistant
DX: E11.40 Type 2 diabetes mellitus with diabetic neuropathy, unspecified (principal)

== ENCOUNTER → 2019-03-09 | Outpatient (REF) | payer BC | LOC: M LAB REF 17:19 | PROVIDERS: ATTEND Ophthalmology | DX: L72.0 Epidermal cyst (principal) ==

== ENCOUNTER → 2019-04-07 | Outpatient (CLI) | payer BC ==
[2019-04-07 08:22] LABS: HEMOGLOBIN A1c 5.2 %
[2019-04-07 08:35] LABS: ALBUMIN 4.4 GM/DL (3.2-5.2); BILIRUBIN,TOTAL 0.4 MG/DL (0.2-1.0); CALCIUM LEVEL 9.9 MG/DL (8.8-10.2); CHOLESTEROL RISK RATIO 3.734 (<5); CREATININE FOR GFR 1.25 MG/DL (0.55-1.30); GLOMERULAR FILTRATION RATE 46.5 (>45); POTASSIUM SERUM 3.9 MEQ/L (3.5-5.1); TOTAL PROTEIN 7.7 GM/DL (6.4-8.2)
== END ==
LOC: M LAB 07:28
PROVIDERS: ATTEND Physician Assistant
DX: E11.40 Type 2 diabetes mellitus with diabetic neuropathy, unspecified (principal); M05.9 Rheumatoid arthritis with rheumatoid factor, unspecified; E78.2 Mixed hyperlipidemia

== ENCOUNTER → 2019-06-14 | Outpatient (CLI) | payer BC ==
[~2019-06-14] MED LIST changes: +CHLO125TA PO; -FENO130C PO; +FENO1CAP17 PO; +GABA-843 PO; +LINZ290C PO; +METF-791 PO; +OZEM2INJ SUBQ; +POTA1TAB23 PO
--- NOTE | 2019-06-14 08:59 | REP ---
Clinical: Constipation. Technique: Two supine views of the abdomen and pelvis. Findings: Bowel gas pattern is nonspecific and without significant fecal stasis although correlation is recommended. No organomegaly. Evidence for prior cholecystectomy. Skeletal structures are intact. No significant abnormal calcifications. Impression: Nonspecific bowel gas pattern. Electronically Signed by Deandre Carson MD 06/14/2019 08:51 A
== END ==
LOC: M LAB 07:43
PROVIDERS: ATTEND Physician Assistant
DX: K59.00 Constipation, unspecified (principal)

== ENCOUNTER → 2019-06-23 | Outpatient (CLI) | payer BC ==
--- NOTE | 2019-06-23 13:19 | REP ---
WHOLE BODY RADIONUCLIDE BONE SCAN: HISTORY: History of breast cancer. Back pain. Comparison bone scan study, January 23, 2015. TECHNIQUE: 22.0 mCi of technetium 99m MDP is injected, and standard whole body bone scan imaging is acquired. SCINTIGRAPHIC FINDINGS: There is uptake associated with arthroplasty in the left knee. There are degenerative disc and facet joint associated uptake changes in the cervical and thoracic and lumbar spine. There is arthritic uptake in the acromioclavicular joint, right greater than left. There is uptake in bilateral kidneys and the urinary bladder. There is no evidence to suggest skeletal metastasis. IMPRESSION: Degenerative uptake in the spine, essentially unchanged from comparison study. The patient status post left knee arthroplasty. Arthritic uptake in the right AC joint at the shoulder. Otherwise negative. Electronically Signed by Christopher Boyle MD 06/23/2019 04:26 P
== END ==
LOC: M RAD 07:26
PROVIDERS: ATTEND Internal Medicine Hematology & Oncology
DX: M54.5 Low back pain (principal); Z85.3 Personal history of malignant neoplasm of breast; M19.90 Unspecified osteoarthritis, unspecified site
CPT/HCPCS: 78306; A9503

== ENCOUNTER → 2019-07-02 | Outpatient (CLI) | payer BC ==
[~2019-07-02] MED LIST changes: +PROHANCE 279.3MG/ML 5ML VIAL (A9576) As Ordered ONE
--- NOTE | 2019-07-02 17:14 | REPVR ---
PROCEDURE INFORMATION: Exam: MR Thoracic Spine Without and With Contrast Exam date and time: 07/02/2019 1:32 PM Age: 59 years old Clinical indication: Pain and condition or disease; Other: HX of breast CA; Pain in thoracic spine; Without myelpathy or radiculopathy; Additional info: Mid back pain, R/O breast ca-eval for mets TECHNIQUE: Imaging protocol: Multiplanar magnetic resonance images of the thoracic spine without and with intravenous contrast. Contrast material: PROHANCE; Contrast volume: 10 ml; Contrast route: IV; COMPARISON: No relevant prior studies available. FINDINGS: Limitations: The axial images only included the disc spaces and endplates rather than the majority of the vertebral bodies limiting assessment for correlation between the sagittal and axial images. Vertebrae: There is no disc herniation in the thoracic spine. A mildly bulging annulus is seen at the T11-T12 level. On the T2 weighted ELIUD and T1 weighted sagittal sequences 301 and 401 there are focal hypointense lesions in T2, T3, T5, T9, T11 and T12. These lesions are in apparent on the STIR sequence other than at the T2 level. On the post gadolinium sequence there is enhancement of the lesions at T2, T3, T5, T9 without definite enhancement identified at the T11 and T12 levels. Some of the larger lesions have a stippled appearance which can be seen with hemangiomas. There is an enhancing lesion in the inferior endplate of T4 which is in apparent on the T1 and T2 weighted sequences pre gadolinium. No abnormal enhancement is seen in the epidural space or obvious enhancement in the posterior elements. Spinal cord: No abnormal signal in the thoracic spinal cord and no evidence of cord compression. Soft tissues: Unremarkable. IMPRESSION: 1. No evidence of neural compromise in the thoracic spine. No enhancing cord lesions are apparent nor is there cord compression. 2. Multiple subcentimeter hypointense lesions are seen on the T1 and T2 weighted pre gadolinium series several of which enhance including those at T2, T3, T5 and T9. Although these could represent metastatic lesions they could also be small and/or atypical hemangiomas since some of the lesions have a stippled appearance such is the lesion at the T5 level series 901, image 10 which is typical of hemangioma. 3. The enhancing lesion in the inferior endplate of T4 could be due to an acute Schmorl's node among other etiologies. 4. The prior CT scans of the abdomen and pelvis are unavailable for comparison as is the bone scan of 06/23/2019. Suggest comparison with those examinations. Electronically signed by: Bernadine Ramos On 07/02/2019 17:14:34 PM
== END ==
LOC: M RAD 12:05
PROVIDERS: ATTEND Internal Medicine Hematology & Oncology
DX: M54.5 Low back pain (principal); Z85.3 Personal history of malignant neoplasm of breast
CPT/HCPCS: 72157; A9576

== ENCOUNTER → 2019-09-24 | Outpatient (CLI) | payer BC ==
[~2019-09-24] MED LIST changes: -METF-791 PO; +METF-838 PO; -PARO15TA; +PARO30TA4; -PROHANCE 279.3MG/ML 5ML VIAL (A9576) As Ordered ONE
[2019-09-24 10:25] LABS: HEMOGLOBIN A1c 5.1 %
[2019-09-24 10:43] LABS: CALCIUM LEVEL 9.9 MG/DL (8.8-10.2); CREATININE FOR GFR 1.09 MG/DL (0.55-1.30); GLOMERULAR FILTRATION RATE 54.3 (>45); POTASSIUM SERUM 3.8 MEQ/L (3.5-5.1)
== END ==
LOC: M LAB 08:50
PROVIDERS: ATTEND Physician Assistant
DX: E11.40 Type 2 diabetes mellitus with diabetic neuropathy, unspecified (principal)

== ENCOUNTER → 2019-12-10 | Outpatient (CLI) | payer BC, SELFPAY ==
[~2019-12-10] MED LIST changes: -FENO1CAP17 PO; +FENO1CAP18 PO; +IBRA125C PO; +LETR2.5T2 PO; +PRUC2TAB PO
== END ==
LOC: M RAD 08:07
PROVIDERS: ATTEND Physician Assistant
DX: K59.00 Constipation, unspecified (principal)

== ENCOUNTER → 2020-01-13 | Outpatient (CLI) | payer BC ==
[2020-01-13 09:23] LABS: CALCIUM LEVEL 9.9 MG/DL (8.8-10.2); CREATININE FOR GFR 1.22 MG/DL (0.55-1.30); GLOMERULAR FILTRATION RATE 47.7 (>45); POTASSIUM SERUM 3.8 MEQ/L (3.5-5.1)
== END ==
LOC: M LAB 07:50
PROVIDERS: ATTEND Physician Assistant
DX: N17.8 Other acute kidney failure (principal)

== ENCOUNTER → 2020-01-24 | Outpatient (CLI) | payer BC ==
--- NOTE | 2020-01-24 16:07 | REPMRS ---
Patient History The patient states she had a clinical breast exam in January 2020. Family history of colorectal cancer at age 50 or over in mother. Malignant lumpectomy, December 30, 2014. Benign excisional biopsy of the left breast, 2001. Benign cyst aspiration of both breasts. Chemotherapy. Radiation therapy. 3D TOMOSYNTHESIS WAS PERFORMED. VOLPARA DENSITY B. Digital Woman Screen Mammo: January 24, 2020 - Exam #: [id number] Bilateral CC and MLO view(s) were taken. Technologist: Martita Dunn, Prior study comparison: January 07, 2019, bilateral digital mammo screening bilat, performed at [facility]. December 22, 2017, bilateral digital mammo screening bilat, performed at [facility]. FINDINGS: The breast tissue is heterogeneously dense. This may lower the sensitivity of mammography. There has been no change in the appearance of the mammogram from the prior studies. There is a moderate amount of residual fibroglandular tissue which is fairly symmetric. There is no interval development of dominant mass, areas of architectural distortion, or clustered microcalcification typical of malignancy. Assessment: BI-RADS/ACR category 1 mammogram. Negative Mammogram. Recommendation Routine screening mammogram in 1 year (for women over age 40). This mammogram was interpreted with the aid of an FDA-approved computer-aided dectection system. Electronically Signed By: Percy Manning MD 01/24/20 [id number]
== END ==
LOC: M WHC 14:31
PROVIDERS: ATTEND Nurse Practitioner Family
DX: Z12.31 Encounter for screening mammogram for malignant neoplasm of breast (principal); Z80.0 Family history of malignant neoplasm of digestive organs; Z85.3 Personal history of malignant neoplasm of breast; Z92.21 Personal history of antineoplastic chemotherapy; Z92.3 Personal history of irradiation

== ENCOUNTER → 2020-01-25 | Outpatient (CLI) | payer BC ==
[~2020-01-25] MED LIST changes: +PROHANCE 279.3MG/ML 5ML VIAL As Ordered ONE
--- NOTE | 2020-02-01 16:55 | REP ---
MRI THORACIC SPINE WITHOUT CONTRAST FOLLOWED BY WITH IV CONTRAST HISTORY: Bone pain. Mid back pain. Comparison MRI study July 02, 2019. History of breast carcinoma. MRI study from July 02, 2019, raised the question of skeletal metastatic disease versus degenerative disc disease. Follow up scan. TECHNIQUE: Axial and sagittal T1 and T2 weighted scans are included with and without fat saturation in the usual fashion. 8 mL of intravenous ProHance was administered. MRI FINDINGS: Thoracic vertebral body heights are maintained. Cortical and medullary bone signal intensity are unchanged from the July 02, 2019, study. There are degenerative disc changes again noted at multiple mid thoracic levels and at the cervicothoracic junction. Incidental note is made of bilateral hypertrophy of the thyroid extending into the mediastinum, left more so than right. This is felt to be unchanged from June study but is better seen today because of differences in field of view between the two studies. No fracture or collapse is seen. No malalignment is observed. The thoracic cord is normal in course, caliber, and signal intensity on T1 and T2 weighted scans. No cord compressive lesion is seen. The subtle areas of low density and post contrast enhancement are again seen in the T2 and T5 vertebral body levels, completely unchanged from the June examination. There is no evidence of progression or new lesion. There is minimal disc bulging at several levels but no cord compression or foraminal narrowing is seen. No paravertebral mass is observed. IMPRESSION: Stable MRI findings unchanged in the seven months since the prior study. This mitigates in favor of degenerative disc changes and atypical hemangiomas and mitigates against the possibility of metastatic disease. MTDD
== END ==
LOC: M RAD 07:02
PROVIDERS: ATTEND Internal Medicine Medical Oncology
DX: M25.50 Pain in unspecified joint (principal)
CPT/HCPCS: 72157; A9576

== ENCOUNTER → 2020-02-04 | Outpatient (CLI) | payer BC ==
[~2020-02-04] MED LIST changes: +GASTROGRAFIN SOLUTION 30ML (Q9963) As Ordered ONE; +ISOVUE-370 76% 100ML VIAL As Ordered ONE; -PROHANCE 279.3MG/ML 5ML VIAL As Ordered ONE
--- NOTE | 2020-02-09 09:45 | REP ---
CT ABDOMEN AND PELVIS WITH IV AND ORAL CONTRAST HISTORY: Abnormal weight loss. Abdomen pain. COMPARISON: Comparison CT abdomen and pelvis study is from March 05, 2018. CT CONTRAST DOSE: 100 mL of intravenous Isovue-370. CT FINDINGS: There is diffuse fatty infiltration of the liver. No focal liver mass lesion is seen. The gallbladder is surgically absent. The spleen is normal in size and homogeneous in texture. There is a stable 2.4 cm left adrenal adenoma unchanged from the 2018 and 2014 prior studies. No abnormality is noted in the pancreas. No retroperitoneal mass or adenopathy is seen. The kidneys enhance symmetrically and are morphologically intact. Small and large bowel loops are unremarkable in the abdomen and pelvis. The uterus is surgically absent. No abdominal wall defect is seen. Urinary bladder is empty but unremarkable. No pelvic mass or adenopathy is appreciated. The appendix is not confidently identified, but there is no CT evidence to suggest appendicitis. IMPRESSION: Fatty infiltration of the liver. Stable left adrenal benign adenoma. No acute intraabdominal abnormality. MTDD
--- NOTE | 2020-02-09 09:46 | REP ---
CT CHEST WITH INTRAVENOUS (IV) CONTRAST HISTORY: Abnormal weight loss. Dyspnea. COMPARISON: Chest x-ray 04/29/2018. Chest CT study 01/23/2015. CT CONTRAST DOSE: 100 mL of intravenous Isovue-370. CT FINDINGS: Todays CT study demonstrates several enlarged right axillary lymph nodes, which are a new finding when compared with the 2015 prior study. The largest of these measures 15 mm in short axis dimension. There are some adjacent surgical clips. There are one or two tiny supraclavicular lymph nodes on the right. There is a left thyroid nodule 3.4 cm in diameter, which is not a new finding although it is a little larger than it was in 2015. There is new pretracheal, AP window, subcarinal, and right hilar lymphadenopathy. There are one or two lymph nodes, which are normal in size, in the left hilus. The pretracheal lymph node measures 2.1 cm in short axis dimension. There are right hilar lymph nodes measuring 1.4 and 1.3 cm in short axis dimension. Subcarinal node is 1.4 cm in short axis dimension. This adenopathy is new from the prior study. No left axillary adenopathy is seen. No pleural effusion is noted. No pericardial effusion is seen. There is a stable left adrenal nodule consistent with a benign adenoma. This measures 2.3 cm in greatest dimension, previously 2.4 cm. The adrenal glands are otherwise normal. There is diffuse fatty infiltration of the liver. Visualized upper abdominal structures are otherwise unremarkable. The gallbladder is surgically absent. No bony lesion is seen. There is an epicardial lymph node, which is a new finding. This measures 8 mm in short axis dimension and is seen to the right of midline. In the lung johnson, there are multiple new pulmonary nodules consistent with pulmonary metastatic lesions. These are more numerous on the right. They range in size up to 11 mm in diameter. There is no evidence of skeletal metastatic disease. IMPRESSION: There is suspicious right axillary, mediastinal, right hilar, and left hilar adenopathy. Multiple new pulmonary nodules are seen suspicious for pulmonary metastatic disease. Recurrent breast malignancy versus other metastatic disease. Fatty infiltration of the liver is seen as well. MTDD
== END ==
LOC: M RAD 07:57
PROVIDERS: ATTEND Physician Assistant
DX: R06.00 Dyspnea, unspecified (principal); R63.4 Abnormal weight loss; R10.84 Generalized abdominal pain; Z85.3 Personal history of malignant neoplasm of breast; R59.0 Localized enlarged lymph nodes; E04.1 Nontoxic single thyroid nodule; K76.0 Fatty (change of) liver, not elsewhere classified; Z90.49 Acquired absence of other specified parts of digestive tract; R91.8 Other nonspecific abnormal finding of lung field
CPT/HCPCS: 71260; 74177; Q9963; Q9967

== ENCOUNTER → 2020-02-08 | Outpatient (CLI) | payer BC ==
[~2020-02-08] MED LIST changes: -GASTROGRAFIN SOLUTION 30ML (Q9963) As Ordered ONE; -ISOVUE-370 76% 100ML VIAL As Ordered ONE
[2020-02-08 13:00] LABS: BASO # 0.1 10^3/uL (0.0-0.2); BASO % 0.7 % (0.0-1.0); EOS # 0.1 10^3/uL (0.0-0.5); EOS % 1.3 % (0.0-3.0); HEMATOCRIT 38.9 % (36.0-47.0); HEMOGLOBIN 12.6 g/dl (12.0-15.5); LYMPH # 1.5 10^3/uL (1.5-5.0); LYMPH % 20.8 % (24.0-44.0); MEAN CORPUSCULAR HEMOGLOBIN 29.9 pg (27.0-33.0); MEAN CORPUSCULAR HGB CONC 32.4 g/dl (32.0-36.5); MEAN CORPUSCULAR VOLUME 92.2 fl (80.0-96.0); MONO # 0.6 10^3/uL (0.0-0.8); MONO % 7.7 % (0.0-5.0); NEUTROPHILS # 5.1 10^3/uL (1.5-8.5); NEUTROPHILS % 69.2 % (36.0-66.0); PLATELET COUNT, AUTOMATED 457 10^3/uL (150-450); RED BLOOD COUNT 4.22 10^6/uL (4.00-5.40); WHITE BLOOD COUNT 7.4 10^3/uL (4.0-10.0)
[2020-02-08 13:32] LABS: ALBUMIN 4.5 GM/DL (3.2-5.2); ALT/SGPT 35 U/L (12-78); BILIRUBIN,DIRECT < 0.1 MG/DL (0.0-0.2); BILIRUBIN,TOTAL 0.4 MG/DL (0.2-1.0); CALCIUM LEVEL 10.1 MG/DL (8.8-10.2); CREATININE FOR GFR 1.14 MG/DL (0.55-1.30); GLOMERULAR FILTRATION RATE 51.6 (>45); TOTAL PROTEIN 7.8 GM/DL (6.4-8.2)
[2020-02-25 00:07] LABS: ANGIOTENSIN 1 CONVERTING ENZYM 20 U/L (14-82); ASPERGILLUS FLAVUS ABY Negative (Neg:<1:1); ASPERGILLUS FUMIGATUS ABY Negative (Neg:<1:1); ASPERGILLUS NIGER ABY Negative (Neg:<1:1); BLASTOMYCES ANTIBODY LEVEL Negative (Neg:<1:1); CRYPTOCOCCUS ANTIGEN SER Negative (Negative)
== END ==
LOC: M LAB 10:52
PROVIDERS: ATTEND Internal Medicine Pulmonary Disease
DX: R91.8 Other nonspecific abnormal finding of lung field (principal)

== ENCOUNTER → 2020-02-15 | Outpatient (CLI) | payer BC ==
--- NOTE | 2020-02-16 14:46 | REP ---
PET CT HISTORY: Diagnosing lung cancer. Patient has a history of breast carcinoma. Abnormal chest CT study dated 02/04/2020. TECHNIQUE: 47 minutes following the intravenous injection of an 8.77 mCi dose of F18 fluorodeoxyglucose (FDG), three-dimensional PET CT imaging is acquired from the skull base to the proximal thighs in the usual fashion. PET CT FINDINGS: The patients pulmonary parenchymal nodules are predominantly small and are not hypermetabolic. There is mildly hypermetabolic uptake in the known left thyroid nodule, maximum standard uptake value in this left thyroid nodule is 4.04. There is a hypermetabolic 1 cm adri focus in the suprasternal notch anterior to the inferior pole of the thyroid with maximum standard uptake value of 6.71. There is hypermetabolic right axillary lymphadenopathy with three relatively small hypermetabolic nodes in the right axilla. Maximum standard uptake value ranges up to 9.98 in the largest right axillary lymph node. There is hypermetabolic precarinal and subcarinal mediastinal adenopathy with maximum standard uptake value in the precarinal adenopathy at 9.86. There is a hypermetabolic AP window region mediastinal lymph node on the left with maximum standard uptake value 5.19. There are two adri foci in the right hilus maximum standard uptake value 7.52. Head and neck soft tissues are otherwise unremarkable. No abnormal hypermetabolic focus is seen in the abdomen or pelvis. IMPRESSION: Hypermetabolic right axillary, mediastinal, and right hilar lymphadenopathy. The patients small pulmonary nodules are not visibly hypermetabolic. MTDD
== END ==
LOC: M PLARAD 07:29
PROVIDERS: ATTEND Internal Medicine Medical Oncology
DX: R91.8 Other nonspecific abnormal finding of lung field (principal); R59.0 Localized enlarged lymph nodes; C34.81 Malignant neoplasm of overlapping sites of right bronchus and lung
CPT/HCPCS: 78815; A9552

== ENCOUNTER → 2020-02-18 | Outpatient (CLI) | payer BC ==
[~2020-02-18] MED LIST changes: +LIDOCAINE 1% MDV 20ML VIAL As Ordered ONE; +SODIUM BICARBONATE 8.4% INJ 50MEQ 50 ML VIAL As Ordered ONE
[2020-02-18 10:45] VITALS: BP 137/82
--- NOTE | 2020-02-18 17:12 | REP ---
INDICATION: AXILLARY NODE. COMPARISON: None. TECHNIQUE: The procedure was performed by MARIANNA Munguia, under the direct supervision of Dr. Boyle. The risks and benefits of the procedure were explained to the patient and an informed consent was obtained both verbally and written. Directly prior to the start of the procedure a formal time-out was completed in the procedure room. FINDINGS: Using ultrasound guidance the right axilla lymph node was localized. The skin was prepped and draped in a sterile fashion. 9 mL of buffered lidocaine was used as a local anesthetic. Using ultrasound guidance a 17/18 gauge coaxial needle biopsy system was inserted and advanced into the lymph node. Eight core biopsy specimens were obtained. Four specimens were sent to our lab here, and remaining 4 were sent out in RPMI solution, for further testing The patient tolerated the procedure well and there were no immediate complications. After the appropriate amount of monitored convalescence the patient was discharged from the department. IMPRESSION: 1. Successful ultrasound-guided right axilla lymph node biopsy. <Electronically signed by Reynaldo Boyle > 02/18/20 [id number]
== END ==
LOC: M IRPRO 07:38
PROVIDERS: ATTEND Internal Medicine Medical Oncology
DX: C77.3 Secondary and unspecified malignant neoplasm of axilla and upper limb lymph nodes (principal); C50.911 Malignant neoplasm of unspecified site of right female breast

== ENCOUNTER → 2020-03-03 | Outpatient (CLI) | payer BC ==
[~2020-03-03] MED LIST changes: -LIDOCAINE 1% MDV 20ML VIAL As Ordered ONE; +PROHANCE 279.3MG/ML 15ML VIAL As Ordered ONE; -SODIUM BICARBONATE 8.4% INJ 50MEQ 50 ML VIAL As Ordered ONE
--- NOTE | 2020-03-03 17:13 | REP ---
INDICATION: NEWLY DX BREAST CA NO MASS ON MAMMO. COMPARISON: MRI breasts 12/27/2016. PET-CT 02/15/2020. TECHNIQUE: Three Marilee MRI imaging was performed with a dedicated breast coil. Axial, coronal, and sagittal T1 and T2 weighted scans were obtained with and without fat saturation in the usual fashion. The study includes dynamically acquired post gadolinium-enhanced imaging with image subtraction. Maximum intensity projection and multi planar reformation imaging is included as well. This study is interpreted with the aid of [employer], an FDA approved computer aided detection (CAD) software program, on a dedicated breast MRI workstation. The gadolinium enhancement dose is 9 mL of intravenous ProHance. FINDINGS: Moderate fibroglandular tissue is seen bilaterally. Several tiny subcentimeter cysts are scattered throughout the left breast. Right breast is smaller than the left due to prior lumpectomy 12/30/2014. Postradiation changes noted once again in the right breast. No suspicious enhancing mass or morphologic abnormality is seen in either breast. The enlarged lymph nodes in the right axillary region they are seen on the prior PET-CT are non seed on the MRI. There is a an oval soft tissue nodule in the right anterolateral cardiophrenic angle measuring 10 x 5 mm. There is a soft tissue nodule in the right chest wall at the level of diaphragm measuring 7 mm. No other abnormalities are seen. IMPRESSION: BI-RADS category 2 benign findings in the breasts. There are post treatment changes in the right breast. On prior PET-CT hypermetabolic right axillary, mediastinal and hilar lymphadenopathy was noted. CT of the chest shows pulmonary nodules. However MRI of the breasts shows no suspicious enhancing mass or morphologic abnormality. There is a soft tissue nodule 10 x 5 mm in the right anterolateral cardiophrenic angle. There is a 7 mm nodule in the right chest wall at the level of the diaphragm. <Electronically signed by Percy Manning > 03/03/20 [id number]
== END ==
LOC: M RAD 14:34
PROVIDERS: ATTEND Internal Medicine Medical Oncology
DX: Z85.3 Personal history of malignant neoplasm of breast (principal)
CPT/HCPCS: A9576; C8908

== ENCOUNTER → 2020-03-13 | Outpatient (REF) | payer BC ==
[~2020-03-13] MED LIST changes: -PROHANCE 279.3MG/ML 15ML VIAL As Ordered ONE
== END ==
LOC: M LAB REF 17:09
PROVIDERS: ATTEND Internal Medicine Endocrinology, Diabetes & Metabolism
DX: E04.2 Nontoxic multinodular goiter (principal)

== ENCOUNTER → 2020-03-24 | Outpatient (CLI) | payer BC ==
[~2020-03-24] MED LIST changes: +CYAN500T10; +D-50CAP
== END ==
LOC: M LABSMTC 11:32
PROVIDERS: ATTEND Anesthesiology
DX: Z01.812 Encounter for preprocedural laboratory examination (principal); Z20.828 Contact with and (suspected) exposure to other viral communicable diseases

== ENCOUNTER 2020-03-29 13:04 | Day surgery (SDC) | payer BC ==
[~2020-03-29] VITALS: Ht 170.2 cm; Wt 90.7 kg
[~2020-03-29 13:04] MED LIST changes: +NS 1,000 ML IV ONE; +propofoL 500 MG/50 ML VIAL As Ordered ONE
[2020-03-29] MEDS ORDERED: LIDOCAINE 2% 100MG/5ML SDV (FOR ANES.) As Ordered ONE (14:55)
--- NOTE | 2020-03-29 14:56 | ROOR ---
Patient Name: Oly Matute Procedure Date: 03/29/2020 2:41 PM Date of : 1960 Age: 59 Room: [facility] Gender: Female Note Status: Finalized Procedure: Upper Endoscopy + Biopsies Indications: Epigastric abdominal pain Providers: Easton Paz MD Referring MD: Mavis STANLEY DO Requesting Provider: Medicines: Monitored Anesthesia Care Complications: No immediate complications. Procedure: Pre-Anesthesia Assessment: - The heart rate, respiratory rate, oxygen saturations, blood pressure, adequacy of pulmonary ventilation, and response to care were monitored throughout the procedure. The Endoscope was introduced through the mouth, and advanced to the second part of duodenum. The upper GI endoscopy was accomplished without difficulty. The patient tolerated the procedure well. Findings: The Z-line was regular and was found 40 cm from the incisors. Multiple biopsies were obtained with cold forceps for evaluation to rule out Webb's Esophagus randomly at the gastroesophageal junction. A small hiatal hernia was present. No other significant abnormalities were identified in a careful examination of the stomach. The exam of the duodenum was otherwise normal. Impression: - Z-line regular, 40 cm from the incisors. - Small hiatal hernia. - Multiple biopsies were obtained at the gastroesophageal junction. - The examination was otherwise normal. Recommendation: - Patient has a contact number available for emergencies. The signs and symptoms of potential delayed complications were discussed with the patient. Return to normal activities tomorrow. Written discharge instructions were provided to the patient. - High fiber diet. - Discharge patient to home. - Continue present medications. - Await pathology results. - Telephone GI clinic for pathology results in 1 week. - Return to referring physician. - The findings and recommendations were discussed with the patient. Procedure Code(s): --- Professional --- 30037, Esophagogastroduodenoscopy, flexible, transoral; with biopsy, single or multiple Diagnosis Code(s): --- Professional --- K44.9, Diaphragmatic hernia without obstruction or gangrene R10.13, Epigastric pain CPT copyright 2019 [employer]. All rights reserved. The codes documented in this report are preliminary and upon transcription coordinator review may be revised to meet current compliance requirements. Easton Paz MD Easton Paz MD 03/29/2020 2:56:00 PM Electronically signed by Easton Paz MD Number of Addenda: 0 Note Initiated On: 03/29/2020 2:41 PM Estimated Blood Loss: Estimated blood loss: none.
[2020-03-29] MEDS ORDERED: ONDANSETRON 4MG/2ML VIAL As Ordered ONE (14:57)
--- NOTE | 2020-03-29 15:05 | ROOR ---
Patient Name: Oly Matute Procedure Date: 03/29/2020 2:42 PM Date of : 1960 Age: 59 Room: [facility] Gender: Female Note Status: Finalized Procedure: Colonoscopy to sigmoid (POOR PREP) Indications: Screening for colorectal malignant neoplasm Providers: Easton Paz MD Referring MD: Mavis STANLEY DO Requesthortensia Provider: Medicines: Monitored Anesthesia Care Complications: No immediate complications. Procedure: Pre-Anesthesia Assessment: - The heart rate, respiratory rate, oxygen saturations, blood pressure, adequacy of pulmonary ventilation, and response to care were monitored throughout the procedure. The Colonoscope was introduced through the anus with the intention of advancing to the cecum. The scope was advanced to the sigmoid colon before the procedure was aborted. Medications were given. The colonoscopy was performed without difficulty. The colonoscopy was aborted due to inadequate bowel prep. The colonoscopy was performed without difficulty. Findings: The perianal and digital rectal examinations were normal. Extensive amounts of stool was found in the rectum, in the recto-sigmoid colon and in the sigmoid colon. The exam was otherwise without abnormality. Impression: - The procedure was aborted due to inadequate bowel prep. - Stool in the rectum, in the recto-sigmoid colon and in the sigmoid colon. - The examination was otherwise normal. - No specimens collected. - The exam was suboptimal due to patient preparation. Recommendation: - Discharge patient to home. - Continue present medications. - Repeat colonoscopy because the examination was incomplete. - Return to referring physician. - The findings and recommendations were discussed with the patient. Procedure Code(s): --- Professional --- 14799, 53, Colonoscopy, flexible; diagnostic, including collection of specimen(s) by brushing or washing, when performed (separate procedure) Diagnosis Code(s): --- Professional --- Z12.11, Encounter for screening for malignant neoplasm of colon Z53.8, Procedure and treatment not carried out for other reasons CPT copyright 2019 [employer]. All rights reserved. The codes documented in this report are preliminary and upon human resources benefits specialist review may be revised to meet current compliance requirements. Easton Paz MD Easton Paz MD 03/29/2020 3:05:20 PM Electronically signed by Easton Paz MD Number of Addenda: 0 Note Initiated On: 03/29/2020 2:42 PM Estimated Blood Loss: Estimated blood loss: none.
[2020-03-29 15:25] VITALS: BP 153/91
[2020-04-05] MEDS ORDERED: IBRA100C PO (13:37)
== END 2020-03-29 15:36 | disposition home or self-care (01) ==
LOC: M OPP 13:04
PROVIDERS: ATTEND Internal Medicine Gastroenterology
DX: Z12.11 Encounter for screening for malignant neoplasm of colon (principal); Z80.0 Family history of malignant neoplasm of digestive organs; K44.9 Diaphragmatic hernia without obstruction or gangrene; R10.13 Epigastric pain; K31.89 Other diseases of stomach and duodenum; R63.4 Abnormal weight loss; Z79.84 Long term (current) use of oral hypoglycemic drugs; Z79.899 Other long term (current) drug therapy
CPT/HCPCS: 43239; 45378; 88305; J2405

== ENCOUNTER → 2020-04-04 | Outpatient (CLI) | payer BC ==
[~2020-04-04] MED LIST changes: +IBRA100C PO; -NS 1,000 ML IV ONE; -propofoL 500 MG/50 ML VIAL As Ordered ONE
[2020-04-04 08:37] LABS: HEMOGLOBIN A1c 4.7 %
[2020-04-04 08:40] LABS: BILIRUBIN,TOTAL 0.4 MG/DL (0.2-1.0); CALCIUM LEVEL 9.6 MG/DL (8.8-10.2); CREATININE FOR GFR 1.25 MG/DL (0.55-1.30); GLOMERULAR FILTRATION RATE 46.4 (>45); POTASSIUM SERUM 3.8 MEQ/L (3.5-5.1); TOTAL PROTEIN 7.1 GM/DL (6.4-8.2)
== END ==
LOC: M LAB 07:34
PROVIDERS: ATTEND Physician Assistant
DX: E11.40 Type 2 diabetes mellitus with diabetic neuropathy, unspecified (principal)

== ENCOUNTER → 2020-04-04 | Outpatient (CLI) | payer BC ==
[2020-04-04 08:16] LABS: BASO % 1.7 % (0.0-1.0); EOS # 0.1 10^3/uL (0.0-0.5); HEMATOCRIT 34.7 % (36.0-47.0); HEMOGLOBIN 11.3 g/dl (12.0-15.5); LYMPH # 1.1 10^3/uL (1.5-5.0); MEAN CORPUSCULAR HGB CONC 32.6 g/dl (32.0-36.5); MONO # 0.2 10^3/uL (0.0-0.8); MONO % 9.7 % (0.0-5.0); NEUTROPHILS # 0.9 10^3/uL (1.5-8.5); NEUTROPHILS % 38.6 % (36.0-66.0); PLATELET COUNT, AUTOMATED 306 10^3/uL (150-450); RED BLOOD COUNT 3.77 10^6/uL (4.00-5.40); WHITE BLOOD COUNT 2.4 10^3/uL (4.0-10.0)
[2020-04-04 11:40] LABS: BILIRUBIN,TOTAL 0.3 MG/DL (0.2-1.0); CALCIUM LEVEL 9.8 MG/DL (8.8-10.2); CREATININE FOR GFR 1.23 MG/DL (0.55-1.30); GLOMERULAR FILTRATION RATE 47.3 (>45); POTASSIUM SERUM 3.9 MEQ/L (3.5-5.1)
[2020-04-06 21:59] LABS: CA15-3 ANTIGEN 5.8 U/ML (<32.4)
== END ==
LOC: M LAB 07:31
PROVIDERS: ATTEND Internal Medicine Medical Oncology
DX: C50.919 Malignant neoplasm of unspecified site of unspecified female breast (principal)

== ENCOUNTER → 2020-04-10 | Outpatient (CLI) | payer BC ==
[2020-04-10 09:09] LABS: BASO # 0.1 10^3/uL (0.0-0.2); BASO % 1.6 % (0.0-1.0); EOS # 0.1 10^3/uL (0.0-0.5); EOS % 2.3 % (0.0-3.0); HEMATOCRIT 34.6 % (36.0-47.0); HEMOGLOBIN 10.8 g/dl (12.0-15.5); LYMPH # 1.3 10^3/uL (1.5-5.0); LYMPH % 41.2 % (24.0-44.0); MEAN CORPUSCULAR HEMOGLOBIN 30.1 pg (27.0-33.0); MEAN CORPUSCULAR HGB CONC 31.2 g/dl (32.0-36.5); MEAN CORPUSCULAR VOLUME 96.4 fl (80.0-96.0); MONO # 0.4 10^3/uL (0.0-0.8); MONO % 12.5 % (0.0-5.0); NEUTROPHILS # 1.3 10^3/uL (1.5-8.5); NEUTROPHILS % 42.4 % (36.0-66.0); PLATELET COUNT, AUTOMATED 329 10^3/uL (150-450); RED BLOOD COUNT 3.59 10^6/uL (4.00-5.40); WHITE BLOOD COUNT 3.1 10^3/uL (4.0-10.0)
[2020-04-10 09:29] LABS: ALBUMIN 3.8 GM/DL (3.2-5.2); BILIRUBIN,TOTAL 0.3 MG/DL (0.2-1.0); CALCIUM LEVEL 8.9 MG/DL (8.8-10.2); CREATININE FOR GFR 1.01 MG/DL (0.55-1.30); GLOMERULAR FILTRATION RATE 59.3 (>45); POTASSIUM SERUM 4.1 MEQ/L (3.5-5.1); TOTAL PROTEIN 6.7 GM/DL (6.4-8.2)
[2020-04-10 11:00] LABS: CA15-3 ANTIGEN 6.6 U/ML (<32.4)
== END ==
LOC: M LAB 07:42
PROVIDERS: ATTEND Internal Medicine Medical Oncology
DX: C50.919 Malignant neoplasm of unspecified site of unspecified female breast (principal)

== ENCOUNTER → 2020-04-14 | Outpatient (CLI) | payer BC | LOC: M LABSMTC 12:48 | PROVIDERS: ATTEND Anesthesiology | DX: Z01.812 Encounter for preprocedural laboratory examination (principal); Z20.828 Contact with and (suspected) exposure to other viral communicable diseases ==

== ENCOUNTER 2020-04-19 11:45 | Day surgery (SDC) | payer BC ==
[~2020-04-19] VITALS: Ht 170.2 cm; Wt 93.9 kg
[~2020-04-19 11:45] MED LIST changes: +NS 1,000 ML IV ONE
[2020-04-19] MEDS ORDERED: propofoL 200 MG/20 ML VIAL As Ordered ONE ×2 (12:28→13:21)
[2020-04-19] MEDS ORDERED: LIDOCAINE 2% 100MG/5ML SDV (FOR ANES.) As Ordered ONE (12:28)
--- NOTE | 2020-04-19 13:40 | ROOR ---
Patient Name: Oly Matute Procedure Date: 04/19/2020 1:06 PM Date of : 1960 Age: 59 Room: [facility] Gender: Female Note Status: Finalized Procedure: Total Colonoscopy to Cecum + Biopsy Polypectomy Indications: Lower abdominal pain Providers: Easton Paz MD Referring MD: Joaquin Ruiz Requesting Provider: Medicines: Monitored Anesthesia Care Complications: No immediate complications. Procedure: Pre-Anesthesia Assessment: - The heart rate, respiratory rate, oxygen saturations, blood pressure, adequacy of pulmonary ventilation, and response to care were monitored throughout the procedure. The Colonoscope was introduced through the anus and advanced to the cecum, identified by appendiceal orifice and ileocecal valve. The colonoscopy was performed without difficulty. The patient tolerated the procedure well. The quality of the bowel preparation was good. Findings: The perianal and digital rectal examinations were normal. Non-bleeding internal hemorrhoids were found during retroflexion. The hemorrhoids were small and Grade I (internal hemorrhoids that do not prolapse). Multiple small and large-mouthed diverticula were found in the recto-sigmoid colon, sigmoid colon and descending colon. A small polyp was found at 45 cm proximal to the anus. The polyp was sessile. The polyp was removed with a cold biopsy forceps. Resection and retrieval were complete. A small polyp was found in the cecum. The polyp was sessile. The polyp was removed with a cold biopsy forceps. Resection and retrieval were complete. The exam was otherwise without abnormality on direct and retroflexion views. Impression: - Non-bleeding internal hemorrhoids. - Diverticulosis in the recto-sigmoid colon, in the sigmoid colon and in the descending colon. - One small polyp at 45 cm proximal to the anus, removed with a cold biopsy forceps. Resected and retrieved. - One small polyp in the cecum, removed with a cold biopsy forceps. Resected and retrieved. - The examination was otherwise normal on direct and retroflexion views. - The exam was otherwise normal to the cecum. Recommendation: - Patient has a contact number available for emergencies. The signs and symptoms of potential delayed complications were discussed with the patient. Return to normal activities tomorrow. Written discharge instructions were provided to the patient. - High fiber diet. - Discharge patient to home. - Continue present medications. - Await pathology results. - Telephone GI clinic for pathology results in 1 week. - Repeat colonoscopy in 5 years for surveillance. - Return to referring physician. - The findings and recommendations were discussed with the patient. Procedure Code(s): --- Professional --- 58501, Colonoscopy, flexible; with biopsy, single or multiple Diagnosis Code(s): --- Professional --- K64.0, First degree hemorrhoids K63.5, Polyp of colon R10.30, Lower abdominal pain, unspecified K57.30, Diverticulosis of large intestine without perforation or abscess without bleeding CPT copyright 2019 [employer]. All rights reserved. The codes documented in this report are preliminary and upon installation specialist review may be revised to meet current compliance requirements. Easton Paz MD Easton Paz MD 04/19/2020 1:40:29 PM Electronically signed by Easton Paz MD Number of Addenda: 0 Note Initiated On: 04/19/2020 1:06 PM Estimated Blood Loss: Estimated blood loss: none.
[2020-04-19 14:11] VITALS: BP 136/86
== END 2020-04-19 14:11 | disposition home or self-care (01) ==
LOC: M OPP 11:45
PROVIDERS: ATTEND Internal Medicine Gastroenterology
DX: R10.30 Lower abdominal pain, unspecified (principal); K64.0 First degree hemorrhoids; K57.90 Diverticulosis of intestine, part unspecified, without perforation or abscess without bleeding; D12.5 Benign neoplasm of sigmoid colon; D12.0 Benign neoplasm of cecum

== ENCOUNTER → 2020-04-26 | Outpatient (CLI) | payer BC ==
[~2020-04-26] MED LIST changes: +NAPR-885 PO; -NS 1,000 ML IV ONE; +VITA400C53 PO; +[UNRECOGNIZED DRUG - CODE] XX; +[UNRECOGNIZED DRUG - SUPPLY]
--- NOTE | 2020-04-26 13:20 | REP ---
INDICATION: SWELLING OF RT ARM COMPARISON: None. TECHNIQUE: Manning scale and color Doppler evaluation using linear high frequency transducer. FINDINGS: Ultrasound examination of the right upper extremity including jugular, subclavian, axillary, brachial, basilic, and cephalic veins demonstrate normal flow characteristics. There is no evidence for deep venous thrombosis. IMPRESSION: No evidence for deep venous thrombosis. <Electronically signed by Deandre Carson > 04/26/20 [id number]
== END ==
LOC: M RAD 10:28
PROVIDERS: ATTEND Internal Medicine Hematology & Oncology
DX: R22.31 Localized swelling, mass and lump, right upper limb (principal); M79.601 Pain in right arm

== ENCOUNTER → 2020-05-08 | Outpatient (CLI) | payer BC ==
[2020-05-08 08:28] LABS: BASO # 0.1 10^3/uL (0.0-0.2); BASO % 2.2 % (0.0-1.0); EOS # 0.2 10^3/uL (0.0-0.5); EOS % 3.7 % (0.0-3.0); HEMATOCRIT 35.7 % (36.0-47.0); HEMOGLOBIN 11.6 g/dl (12.0-15.5); LYMPH # 1.5 10^3/uL (1.5-5.0); LYMPH % 37.7 % (24.0-44.0); MEAN CORPUSCULAR HEMOGLOBIN 30.6 pg (27.0-33.0); MEAN CORPUSCULAR HGB CONC 32.5 g/dl (32.0-36.5); MEAN CORPUSCULAR VOLUME 94.2 fl (80.0-96.0); MONO # 0.4 10^3/uL (0.0-0.8); NEUTROPHILS # 1.8 10^3/uL (1.5-8.5); NEUTROPHILS % 44.9 % (36.0-66.0); PLATELET COUNT, AUTOMATED 332 10^3/uL (150-450); RED BLOOD COUNT 3.79 10^6/uL (4.00-5.40)
[2020-05-08 08:54] LABS: ALBUMIN 4.1 GM/DL (3.2-5.2); BILIRUBIN,TOTAL 0.3 MG/DL (0.2-1.0); CALCIUM LEVEL 9.4 MG/DL (8.8-10.2); CREATININE FOR GFR 1.16 MG/DL (0.55-1.30); GLOMERULAR FILTRATION RATE 50.6 (>45); POTASSIUM SERUM 4.1 MEQ/L (3.5-5.1); TOTAL PROTEIN 7.1 GM/DL (6.4-8.2)
[2020-05-08 11:15] LABS: CA15-3 ANTIGEN 9.4 U/ML (<32.4)
== END ==
LOC: M LAB 07:46
PROVIDERS: ATTEND Internal Medicine Medical Oncology
DX: R91.8 Other nonspecific abnormal finding of lung field (principal); Z91.048 Other nonmedicinal substance allergy status; Z88.8 Allergy status to other drugs, medicaments and biological substances

== ENCOUNTER → 2020-05-16 | Outpatient (CLI) | payer BC ==
[~2020-05-16] MED LIST changes: -BUPR150T3 PO; +BUPR150T4 PO; -CYAN500T10; +GABA-282 PO; -GABA-843 PO; +ISOVUE-370 76% 100ML VIAL As Ordered ONE; +VITA500T37
--- NOTE | 2020-05-16 16:47 | REP ---
INDICATION: MET BREAST CA. COMPARISON: 02/04/2020. TECHNIQUE: CT chest performed following the intravenous administration of 100 cc of Isovue 370. Sagittal and coronal reconstruction images are performed. FINDINGS: Lungs: Multiple nodules are again seen in the right lung. These are stable when compared to the prior study. Most are subcentimeter in size. The largest is in the superior segment of the right lower lobe measuring 12 mm in diameter. There are a few nodules in the left lung, upper and lower lobes, which are also stable, and subcentimeter in size. No new nodules are seen bilaterally. Mediastinum: Pretracheal adenopathy is slightly decreased in size. Subcarinal adenopathy has mildly decreased in size. Krystal: Overall right hilar adenopathy has mildly decreased in size. 1 mildly enlarged lymph node in the inferior right hilar region is stable. A left suprahilar lymph node is stable. In the right cardiophrenic angle there is a lymph node which has mildly increased in size measuring 13 x 9 mm. In the anterior epicardium there are couple of new tiny subcentimeter soft tissue nodules. Axilla: Left axillary lymph nodes are present. These have mildly increased in size compared to the prior study. The largest is inferior and measures 7 mm in short axis. In the superior right axilla there is an enlarged lymph node 1.4 cm in short axis along the lateral margin of the pectoralis major muscle. This is unchanged. In the posterior right axilla a lymph node has mildly increased in size currently measuring 15 x 11 mm, previously 12 x 9 mm. Inferolateral to that in the right axilla there is a lymph node which has enlarged measuring 15 x 12 mm, previously 7 x 7 mm. There are few other subcentimeter right axillary lymph nodes. More inferiorly in the right chest wall laterally there are 2 adjacent lymph nodes which have mildly increased in size, measuring 9 x 8 mm and 7 x 5 mm. Pleura: No effusion. Heart: Not enlarged. Thoracic aorta: No aneurysm or dissection. Visualized osseous structures: There are multiple, innumerable, new, subcentimeter sclerotic lesions in the thoracic vertebral bodies compatible with sclerotic metastases. A 3.2 cm left thyroid nodule is stable. IMPRESSION: Multiple stable bilateral pulmonary nodules. In general there is mild improvement of mediastinal and hilar adenopathy. A lymph node in the right cardiophrenic angle has mildly increased in size. Lymph nodes in the left axilla have mildly increased in size. Lymph nodes in the right axilla have mildly increased in size, with 1 lymph node remaining stable compared to the prior exam. More inferiorly in the right chest wall 2 lymph nodes have mildly increased in size. There are multiple new subcentimeter sclerotic metastatic lesions in the thoracic vertebral bodies. <Electronically signed by Percy Manning > 05/16/20 [id number]
--- NOTE | 2020-05-16 18:04 | REP ---
INDICATION: MET BREAST CA COMPARISON: None. TECHNIQUE: CT Scan of the abdomen and pelvis was performed with intravenous administration of 100 cc of Isovue 370, without oral contrast. FINDINGS: Liver: Normal Gallbladder: There has been a prior cholecystectomy. Spleen: Normal. Adrenals: There is a stable left adrenal nodule. This measures 2.4 cm in diameter is unchanged dating back to 2014. Right adrenal gland is normal. Pancreas: Normal. Kidneys: Normal. Small and large bowel: Unremarkable. Free fluid: None. Abdominal aorta: No aneurysm or dissection. Adenopathy: None. Osseous structures: Multiple small sclerotic lesions are seen throughout the visualized vertebral bodies as well as throughout the sacrum and pelvic bones, compatible with multiple innumerable small sclerotic metastatic lesions. Pelvis: There has been a prior hysterectomy. IMPRESSION: No new mass or adenopathy. Multiple new small sclerotic bone lesions throughout the vertebral bodies and pelvic bones compatible with skeletal metastatic disease. <Electronically signed by Percy Manning > 05/16/20 [id number]
== END ==
LOC: M RAD 11:43
PROVIDERS: ATTEND Internal Medicine Medical Oncology
DX: R91.8 Other nonspecific abnormal finding of lung field (principal); C77.9 Secondary and unspecified malignant neoplasm of lymph node, unspecified; C50.919 Malignant neoplasm of unspecified site of unspecified female breast; C79.51 Secondary malignant neoplasm of bone
CPT/HCPCS: 71260; 74177; Q9967

== ENCOUNTER → 2020-05-18 | Outpatient (CLI) | payer BC ==
--- NOTE | 2020-05-18 09:28 | REPVR ---
PROCEDURE INFORMATION: Exam: CT Neck With Contrast Exam date and time: 05/18/2020 9:00 AM Age: 59 years old Clinical indication: Enlarged lymph nodes; Additional info: History of breast cancer, pulmonary nodules TECHNIQUE: Imaging protocol: Computed tomography images of the neck with intravenous contrast. Radiation optimization: All CT scans at this facility use at least one of these dose optimization techniques: automated exposure control; mA and/or kV adjustment per patient size (includes targeted exams where dose is matched to clinical indication); or iterative reconstruction. Contrast material: ISOVUE 370; Contrast volume: 75 ml; Contrast route: INTRAVENOUS (IV); COMPARISON: PT PET/CT Skull/mid thigh 02/15/2020 8:34 AM FINDINGS: Brain: Visualized intracranial contents are unremarkable. Nasopharynx: Unremarkable. Oropharynx: Unremarkable. No significant tonsillar enlargement. Hypopharynx: Unremarkable. Larynx: Unremarkable. Normal epiglottis. Retropharyngeal space: Unremarkable. Submandibular/Parotid glands: Normal. Glands are normal in size. Thyroid: Asymmetrical enlarged left lobe of the thyroid gland with central low-attenuation nodule measuring 14 mm. Findings are difficult to evaluate secondary to presence of artifact from adjacent contrast within the vessels. Lymph nodes: Enlarged mediastinal lymph nodes partially seen measuring up to 16 mm. Subcentimeter bilateral, right greater than left supraclavicular lymph nodes are seen with mild haziness within the soft tissues. These are not pathologically enlarged by CT criteria. No large cervical lymphadenopathy is seen. Prominent right axillary lymph nodes partially seen measuring up to 12 mm. Trachea: Visualized trachea is unremarkable. Lungs: Visualized lungs demonstrate minimal ground-glass densities of the right lung likely edema. Nodule in the anterior left lower lobe measuring 5.6 mm and possible in the right lower lobe anteriorly measuring 4.7 mm. Findings are partially seen. Bones/joints: Demineralization of the bones with degenerative changes. Soft tissues: Unremarkable. No significant soft tissue swelling. IMPRESSION: Enlarged mediastinal lymph nodes partially seen measuring up to 16 mm. Subcentimeter bilateral, right greater than left supraclavicular lymph nodes are seen with mild haziness within the soft tissues. These are not pathologically enlarged by CT criteria. No large cervical lymphadenopathy is seen. Prominent right axillary lymph nodes partially seen measuring up to 12 mm. Asymmetrical enlarged left lobe of the thyroid gland with central low-attenuation nodule measuring 14 mm. Findings are difficult to evaluate secondary to presence of artifact from adjacent contrast within the vessels. Nodule in the anterior left lower lobe measuring 5.6 mm and possible in the right lower lobe anteriorly measuring 4.7 mm. Findings are partially seen. Follow-up with CT chest is recommended. COMMENTS: Consistent with the [employer]'s Incidental Findings Committee white paper (J Am Warner Radiol 2015): In patients aged 35 years and older with an incidental thyroid nodule equal to or greater than 1.[address], MRI or extrathyroidal US, further evaluation with dedicated thyroid US is recommended for patients with normal life expectancy and without comorbidities. For smaller nodules without suspicious features, no further evaluation or follow up is recommended. Electronically signed by: Carlota Iyer On 05/18/2020 09:28:39 AM
== END ==
LOC: M RAD 08:25
PROVIDERS: ATTEND Internal Medicine Medical Oncology
DX: R59.9 Enlarged lymph nodes, unspecified (principal); Z85.3 Personal history of malignant neoplasm of breast

== ENCOUNTER → 2020-05-22 | Outpatient (CLI) | payer BC ==
[~2020-05-22] MED LIST changes: +CIPR7.5D5 AS; -CIPRODEX AS; -ISOVUE-370 76% 100ML VIAL As Ordered ONE; +LIDOCAINE 1% MDV 20ML VIAL As Ordered ONE; +MIDAZOLAM INJ 2MG/2ML VIAL (J2250 PER 1MG) As Ordered ONE; +ONDA8TAB10 PO; +PROMETHAZINE INJ 25 MG/ML VIAL (J2550) As Ordered ONE; +ceFAZolin 1GM VIAL (J0690 PER 500MG) As Ordered ONE; +diphenhydrAMINE 50MG/ML VIAL (J1200) As Ordered ONE; +fentaNYL 100 MCG/2 ML INJECTION (J3010) As Ordered ONE
--- NOTE | 2020-05-22 13:05 | IRHP ---
[facility] IR Pre-Procedure H & P General Date of Service: May 22, 2020 Procedure: Same Day Surgery Interval History and Physical I have seen the patient and reviewed last H & P performed within 30 days. There is no significant interval change. History of Present Illness Chief Complaint The patient is a 59-year-old female admitted with a reason for visit of Hx Breast Ca, Pulmonary Nodules. PRE-PROCEDURE DIAGNOSIS: rt sided breast ca HEART: normal rate. LUNGS: normal breathing at rest. ASA Classification ASA Classification: III-Severe systemic dis. Mallampati Score: II NPO: Yes Problems with prior sedation: No Obstructive Sleep Apnea: No Plan moderate sedation Allergies Coded Allergies: adhesive (Verified Allergy, Intermediate, rash, 04/18/20) adhesives; steri strips; bandaides ; paper tape blister tega derm if x 24hrs nitrofurantoin (Verified Adverse Reaction, Intermediate, vomiting, 04/18/20) Home Medications Scheduled Atorvastatin Calcium (Atorvastatin Calcium), 20 MG PO QHS, (Reported) Bupropion Hcl (Bupropion Xl), 150 MG PO DAILY, (Reported) Chlorthalidone (Chlorthalidone), 25 TAB PO DAILY, (Reported) Esomeprazole Magnesium (Esomeprazole Magnesium), 40 MG PO QHS, (Reported) Gabapentin (Gabapentin), 300 MG PO BID, (Reported) Letrozole (Letrozole), 2.5 MG PO DAILY Multivitamin (Multi-Vitamin Daily), 1 TAB PO DAILY, (Reported) Naproxen (Naproxen), 1 TAB PO BID Palbociclib (Ibrance), 1 CAP PO DAILY Potassium Chloride (Potassium Chloride), 20 MEQ PO DAILY, (Reported) Semaglutide (Ozempic), 0.5 MG SUBQ 1XWK, (Reported) Sulfasalazine (Sulfasalazine), 1,500 MG PO BID, (Reported) Vitamin E (Vitamin E), 400 UNIT PO BID Miscellaneous Medications Cholecalciferol (Vitamin D3) (Vitamin D3), (Reported) Cyanocobalamin (Vitamin B-12) (Vitamin B-12), (Reported) Durable Medical Equipment Arm Brace (Hand Support), MIS XX, (DME) [lymphedema sleeve rt], APPFUL, (DME) VS, I&O, 24H, Fishbone Vital Signs/I&O Vital Signs Date Time Temp Pulse Resp B/P (MAP) Pulse Ox O2 Delivery O2 Flow Rate FiO2 05/22/20 12:54 97.1 88 18 99 Room Air SUSAN DOSHI MD May 22, 2020 13:05
[2020-05-22 16:00] VITALS: BP 118/65
--- NOTE | 2020-05-25 10:23 | POST-OPPD ---
Postoperative Procedure Note Date Of Procedure: May 22, 2020 Time Of Procedure: 16:00 IR Ultrasound and fluoroscopy guided port placement. IR Ultrasound of the neck. IR Moderate sedation. Clinical indication: Right-sided breast cancer. Physician: Dr. Garcia. Procedure: The patient was advised of the benefits, risks, and alternatives of the procedure and informed consent was obtained. A time-out was performed with verification of the patient's name, MRN, site of procedure and type of procedure to be performed. The patient was positioned in the supine position on the angiographic table. The site was prepped and draped in the usual sterile fashion. Moderate sedation was performed by the physician including the presence of an independent trained RN who assisted and monitored the patient's level of consciousness and physiologic status. Following the administration of fentanyl and Versed , the physician spent 45 minutes of continuous face to face time with the patient. Ultrasound of the neck reveals a patent and compressible left internal jugular vein. A boatswain mate radiograph reveals no gross abnormality. The neck and anterior chest wall were anesthetized with lidocaine. The left internal jugular vein was accessed using a microintroducer needle under ultrasound guidance, via a lateral approach. An 018 wire was advanced into the superior vena cava, the needle was removed and a microsheath was placed. An Amplatz wire was then passed into the inferior vena cava. An incision at the internal jugular vein access site and anterior chest wall were made using a scalpel. An incision was made at the anterior chest wall. A small pocket was created using a combination of blunt and sharp dissection. A tunneling device was then used to pass the catheter from the pocket to the neck puncture site. An 8- [employer] Smart power port was then positioned in the pocket. The catheter was then measured and cut. The introducer sheath was exchanged for a peel-away sheath. The catheter was passed through the peel-away sheath into the internal jugular vein and the peel-away sheath was removed. The port tip was positioned at the cavoatrial junction. The port was then accessed with a Matute needle. The port flushes and aspirates well. The puncture site in the neck was closed. The chest wall incision was then closed with 2-0 Vicryl and 4-0 Monocryl. Glue and Steri- Strips were applied. A sterile dressing was then applied. The patient tolerated the procedure well and was returned to the PRU in stable condition. Estimated blood loss: <5 ml. Complications: None. Conclusion: 1. Successful placement of an 8-[employer] Smart power port via the left internal jugular vein. The port is ready for immediate use. 2. Patient to follow up in IR clinic in 2 weeks. Thank you for this referral. SUSAN GARCIA MD May 25, 2020 10:23
== END ==
LOC: M IRPRO 07:47
PROVIDERS: ATTEND Internal Medicine Medical Oncology
DX: C77.9 Secondary and unspecified malignant neoplasm of lymph node, unspecified (principal); R91.8 Other nonspecific abnormal finding of lung field; Z85.3 Personal history of malignant neoplasm of breast
CPT/HCPCS: 36561; 99152; 99153; C1769; C1788; C1894; J0690; J1200; J1642; J1644; J2250; J3010

== ENCOUNTER → 2020-06-06 | Outpatient (POV) | payer BC ==
[~2020-06-06] MED LIST changes: -CIPR7.5D5 AS; +CIPRODEX AS; -LIDOCAINE 1% MDV 20ML VIAL As Ordered ONE; -MIDAZOLAM INJ 2MG/2ML VIAL (J2250 PER 1MG) As Ordered ONE; -PROMETHAZINE INJ 25 MG/ML VIAL (J2550) As Ordered ONE; -ceFAZolin 1GM VIAL (J0690 PER 500MG) As Ordered ONE; -diphenhydrAMINE 50MG/ML VIAL (J1200) As Ordered ONE; -fentaNYL 100 MCG/2 ML INJECTION (J3010) As Ordered ONE
--- NOTE | 2020-06-08 14:40 | IRPN ---
[facility] IR Progress Note IR Progress Note DATE: Jun 06, 2020 Patient agreed to this telephone follow-up. I spent 5 minutes talking to the patient. FOLLOW-UP: Status post port placement. Patient states there is no pain, redness or discharge at the port site. Port hasn't been used yet and she may be going on oral chemotherapy pills. ON EXAMINATION: No video. IMPRESSION: Doing well status post port placement. Patient will need monthly flushes of her port to keep it patent. No further follow-up scheduled unless initiated by patient and her referring provider. Thank you for this referral Allergies Coded Allergies: adhesive (Verified Allergy, Intermediate, rash, 04/18/20) adhesives; steri strips; bandaides ; paper tape blister tega derm if x 24hrs nitrofurantoin (Verified Adverse Reaction, Intermediate, vomiting, 04/18/20) SUSAN DOSHI MD Jun 08, 2020 14:40
== END ==
LOC: M TMIRPOV 08:50
PROVIDERS: ATTEND Radiology Diagnostic Radiology
DX: Z45.2 Encounter for adjustment and management of vascular access device (principal)

== ENCOUNTER → 2020-06-08 | Outpatient (CLI) | payer BC ==
[~2020-06-08] MED LIST changes: +CIPR7.5D5 AS; -CIPRODEX AS
--- NOTE | 2020-06-08 12:32 | REP ---
INDICATION: MET BREAST CA CALL [facility] IN HER OFFICE 1594. COMPARISON: Comparison radionuclide bone scanning is from June 23, 2019 and January 23, 2015.. TECHNIQUE/RADIOTRACER AND DOSE: 21.8 mCi of Technetium-99m MDP was injected and standard whole-body bone scanning is acquired. FINDINGS: There is uptake in bilateral kidneys and in the urinary bladder. Arthroplasty related uptake is seen about the left knee unchanged. Today's bone scan and demonstrates a change in that there are numerous small foci of increased uptake in the ribcage, bony calvarium, and in the thoracolumbar spine consistent with metastatic disease. This pattern is new when compared with the 06/23/2019 prior study. There is bilateral scapular mottled uptake as well. Mottled pattern of increased uptake is seen in the sacrum. Increased uptake is seen in the cervical spine. Multiple anterior and posterior rib lesions are seen. IMPRESSION: Findings consistent with widespread metastatic disease involving the axial skeleton as a change from the comparison study.. <Electronically signed by Reynaldo Boyle > 06/08/20 [id number]
== END ==
LOC: M RAD 08:21
PROVIDERS: ATTEND Internal Medicine Medical Oncology
DX: R91.8 Other nonspecific abnormal finding of lung field (principal); Z85.3 Personal history of malignant neoplasm of breast

== ENCOUNTER → 2020-06-14 | Outpatient (CLI) | payer BC ==
--- NOTE | 2020-06-14 08:53 | REP ---
INDICATION: PULMONARY NODULES CALL 5200 WHEN YOU ARE READY FOR PT COMPARISON: None. TECHNIQUE: Manning scale and color evaluation of the thyroid gland using the linear high frequency transducer. FINDINGS: Directed ultrasound examination along the right-side of the neck at area of palpable mass demonstrates a small cluster of lymph nodes which appear normal measuring up to 8 x 5 x 6.3 mm. IMPRESSION: Small area of relatively normal appearing lymph nodes. <Electronically signed by Deandre Carson > 06/14/20 [id number]
--- NOTE | 2020-06-14 08:55 | REP ---
INDICATION: PULMONARY NODULES CALL 5200 WHEN YOU ARE READY FOR PT COMPARISON: None. TECHNIQUE: Manning scale and color Doppler evaluation right upper extremity using linear high frequency transducer. FINDINGS: Ultrasound examination of the right upper extremity deep venous structures demonstrates normal compressibility flow and wave patterns in response to respiration and augmentation. There is no evidence for deep venous thrombosis. IMPRESSION: No evidence for deep venous thrombosis. <Electronically signed by Deandre Carson > 06/14/20 [id number]
== END ==
LOC: M RAD 07:32
PROVIDERS: ATTEND Internal Medicine Medical Oncology
DX: M79.89 Other specified soft tissue disorders (principal); R22.1 Localized swelling, mass and lump, neck

== ENCOUNTER → 2020-06-27 | Outpatient (CLI) | payer BC ==
[~2020-06-27] MED LIST changes: +VIT B COMPLEX PO
[2020-06-27 08:40] LABS: CHOLESTEROL RISK RATIO 3.54 (<5)
[2020-06-27 10:48] LABS: HEMOGLOBIN A1c 4.5 %
== END ==
LOC: M LAB 07:31
PROVIDERS: ATTEND Physician Assistant
DX: E11.40 Type 2 diabetes mellitus with diabetic neuropathy, unspecified (principal); E78.2 Mixed hyperlipidemia

== ENCOUNTER → 2020-06-28 | Outpatient (CLI) | payer BC ==
[~2020-06-28] MED LIST changes: +HYDR-3363 PO
--- NOTE | 2020-06-28 11:41 | REP ---
INDICATION: SWELLING, PAIN OF RT BREAST. History breast carcinoma post radiation therapy and chemotherapy. Right breast pain. COMPARISON: Comparison is made with recent chest CT study May 16, 2020. The chest CT showed a few lymph nodes had enlarged in the right axilla.. TECHNIQUE: Right whole breast ultrasound. FINDINGS: Scanning through the right breast demonstrates somewhat heterogeneous fibroglandular tissue throughout the right breast. No cyst is seen. No mass, locally inflamed tissue, or architectural distortion is noted. The study does not include axillary scanning. IMPRESSION: No suspicious findings seen in the breast parenchyma by ultrasound. Heterogeneous fibroglandular tissue. No mass or cyst seen. <Electronically signed by Reynaldo Boyle > 06/28/20 [id number]
== END ==
LOC: M RAD 10:43
PROVIDERS: ATTEND Internal Medicine Medical Oncology
DX: N64.4 Mastodynia (principal)

== ENCOUNTER 2020-06-29 15:47 | Outpatient (RCR) | payer BC ==
[~2020-06-29 15:47] MED LIST changes: +BUPR150T12 PO; -BUPR150T4 PO; -HYDR-3363 PO
[2020-07-03] MEDS ORDERED: HYDR-3363 PO (11:39)
== END 2020-07-02 ==
LOC: M PT 15:47
PROVIDERS: ATTEND Internal Medicine Medical Oncology
DX: I89.0 Lymphedema, not elsewhere classified (principal); C50.919 Malignant neoplasm of unspecified site of unspecified female breast

== ENCOUNTER → 2020-07-18 | Outpatient (REF) | payer BC ==
[~2020-07-18] MED LIST changes: +HYDR-3363 PO; +HYDR-4517 PO
[2020-07-18 12:17] LABS: BASO # 0.1 10^3/uL (0.0-0.2); BASO % 1.8 % (0.0-1.0); EOS # 0.1 10^3/uL (0.0-0.5); EOS % 2.6 % (0.0-3.0); HEMATOCRIT 33.7 % (36.0-47.0); HEMOGLOBIN 11.2 g/dl (12.0-15.5); LYMPH # 1.1 10^3/uL (1.5-5.0); LYMPH % 27.9 % (24.0-44.0); MEAN CORPUSCULAR HEMOGLOBIN 31.4 pg (27.0-33.0); MEAN CORPUSCULAR HGB CONC 33.2 g/dl (32.0-36.5); MEAN CORPUSCULAR VOLUME 94.4 fl (80.0-96.0); MONO # 0.3 10^3/uL (0.0-0.8); MONO % 7.8 % (2.0-8.0); NEUTROPHILS # 2.3 10^3/uL (1.5-8.5); NEUTROPHILS % 59.1 % (36.0-66.0); PLATELET COUNT, AUTOMATED 390 10^3/uL (150-450); RED BLOOD COUNT 3.57 10^6/uL (4.00-5.40); WHITE BLOOD COUNT 3.9 10^3/uL (4.0-10.0)
[2020-07-18 13:14] LABS: CREATININE FOR GFR 1.06 MG/DL (0.55-1.30); GLOMERULAR FILTRATION RATE 55.9 (>45)
[2020-07-18 13:15] LABS: ALBUMIN 4.1 GM/DL (3.2-5.2); BILIRUBIN,DIRECT 0.1 MG/DL (0.0-0.2); BILIRUBIN,TOTAL 0.4 MG/DL (0.2-1.0); C REACTIVE PROTEIN QUANTITATIV 0.3 MG/DL (0.00-0.30); CALCIUM LEVEL 9.1 MG/DL (8.8-10.2); TOTAL PROTEIN 7.3 GM/DL (6.4-8.2)
[2020-07-18 14:21] LABS: ERYTHROCYTE SEDIMENTATION RATE 47 mm/hr (0-30)
[2020-07-19 11:09] LABS: SSA SJOGRENS A <0.2 AI (0.0-0.9); SSB SJOGRENS B <0.2 AI (0.0-0.9)
== END ==
LOC: M SFHCRHEU 09:46
PROVIDERS: ATTEND Internal Medicine
DX: M05.9 Rheumatoid arthritis with rheumatoid factor, unspecified (principal); H04.129 Dry eye syndrome of unspecified lacrimal gland

== ENCOUNTER → 2020-07-18 | Outpatient (CLI) | payer BC ==
--- NOTE | 2020-07-19 06:24 | REP ---
INDICATION: RHEUMATOID ARTHRITIS WITH RHEUMATOID FACTOR, UNSPECIFIED COMPARISON: None. TECHNIQUE: AP, lateral, bilateral oblique views right and left wrist. FINDINGS: The bilateral carpal bones, joint spaces, and surrounding soft tissues are essentially age-appropriate and relatively symmetric. There is mild to moderate osteoarthritic change primarily involving the 1st carpometacarpal joint bilaterally. No further significant osteoarthritic or inflammatory arthritic changes are noted. IMPRESSION: Symmetric appearance to the bilateral wrists with mild/moderate osteoarthritic changes noted at the 1st carpometacarpal joints. <Electronically signed by Deandre Carson > 07/19/20 [id number]
--- NOTE | 2020-07-19 06:26 | REP ---
INDICATION: RHEUMATOID ARTHRITIS WITH RHEUMATOID FACTOR, UNSPECIFIED COMPARISON: None. TECHNIQUE: AP, lateral, bilateral oblique views right and left hand. FINDINGS: Right hand demonstrates relatively mild osteoarthritic changes primarily involving the distal interphalangeal (DIP) joints and specifically the 1st, 2nd, and 3rd digits where subchondral sclerosis, joint space narrowing, and marginal spurring is most noted. Remainder of the examination demonstrates relatively age-appropriate changes. No further significant osteoarthritic or inflammatory arthritic changes are identified. Left hand demonstrates relatively mild osteoarthritic changes primarily involving the distal interphalangeal joints and specifically the 1st, 2nd, and 3rd digits where subchondral sclerosis, joint space narrowing, and marginal spurring is most noted. Remainder of the examination demonstrates relatively age-appropriate changes. No further significant osteoarthritic or inflammatory arthritic changes are identified IMPRESSION: Mild/early moderate osteoarthritic changes primarily involving multiple DIP joints bilaterally. <Electronically signed by Deandre Carson > 07/19/20 [id number]
== END ==
LOC: M RAD 16:20
PROVIDERS: ATTEND Internal Medicine
DX: M05.9 Rheumatoid arthritis with rheumatoid factor, unspecified (principal); M19.049 Primary osteoarthritis, unspecified hand; M19.039 Primary osteoarthritis, unspecified wrist

== ENCOUNTER → 2020-07-31 | Outpatient (CLI) | payer BC ==
--- NOTE | 2020-07-31 11:59 | DEXAMM ---
INDICATION: Z78.0 POSTMENOPAUSAL. COMPARISON: Comparison study October 04, 2011.. TECHNIQUE: Bone density was measured using dual-energy x-ray absorptionmetry (DEXA). FINDINGS: AP SPINE L1-L4 BMD 1.571 g/cm2 Young Adult T-Score 3.0 Age Matched Z-Score 4.4. LT FEMUR, TOTAL BMD 1.059 g/cm2 Young Adult T-Score 0.4 Age Matched Z-Score 1.4. LT NECK BMD 1.027 g/cm2 Young Adult T-Score -0.1 Age Matched Z-Score 1.2. RT FEMUR, TOTAL BMD 1.104 g/cm2 Young Adult T-Score 0.8 Age Matched Z-Score 1.8. RT NECK BMD 1.090 g/cm2 Young Adult T-Score 0.4 Age Matched Z-Score 1.7. IMPRESSION: There is normal bone density of the spine. There is normal bone density of the left hip. There is normal bone density of the right hip. The density of the spine has increased 15.6% since the initial exam on October 04, 2011. The density of the left hip has increased 3.0% since initial exam on October 04, 2011. The density of the right hip has increased 9.1% since the initial exam on October 04, 2011. FOLLOW-UP: Recommendation for the next bone density exam: 5 years. <Electronically signed by Reynaldo Boyle > 07/31/20 [id number]
== END ==
LOC: M WHC 10:18
PROVIDERS: ATTEND Internal Medicine
DX: Z78.0 Asymptomatic menopausal state (principal)

== ENCOUNTER 2020-08-01 15:41 | Outpatient (RCR) | payer BC | END 2020-08-02 | LOC: M PT 15:41 | PROVIDERS: ATTEND Internal Medicine Medical Oncology | DX: I89.0 Lymphedema, not elsewhere classified (principal); C50.919 Malignant neoplasm of unspecified site of unspecified female breast ==

== ENCOUNTER 2020-08-22 15:45 | Outpatient (RCR) | payer BC ==
[2020-08-29] MEDS ORDERED: LOVE0.8I3 SC (13:07)
[2020-09-01] MEDS ORDERED: CELE10TA PO (08:58)
== END 2020-09-01 ==
LOC: M PT 15:45
PROVIDERS: ATTEND Internal Medicine Medical Oncology
DX: I89.0 Lymphedema, not elsewhere classified (principal)

== ENCOUNTER → 2020-08-29 | Outpatient (CLI) | payer BC ==
[~2020-08-29] MED LIST changes: +GASTROGRAFIN SOLUTION 30ML (Q9963) As Ordered ONE; +ISOVUE-370 76% 100ML VIAL As Ordered ONE; +LOVE0.8I3 SC
--- NOTE | 2020-08-29 11:15 | REPVR ---
PROCEDURE INFORMATION: Exam: CT Neck With Contrast Exam date and time: 08/29/2020 10:28 AM Age: 60 years old Clinical indication: Condition or disease; Cancer; Other: Breast w/ mets; Additional info: Breast CA w/ mets TECHNIQUE: Imaging protocol: Computed tomography images of the neck with contrast. Radiation optimization: All CT scans at this facility use at least one of these dose optimization techniques: automated exposure control; mA and/or kV adjustment per patient size (includes targeted exams where dose is matched to clinical indication); or iterative reconstruction. Contrast material: ISO 370; Contrast volume: 100 ml; Contrast route: INTRAVENOUS (IV); COMPARISON: CT Neck with contrast 05/18/2020 8:52 AM FINDINGS: Nasopharynx: Unremarkable. Oropharynx: Unremarkable. No significant tonsillar enlargement. Hypopharynx: Unremarkable. Larynx: Unremarkable. Normal epiglottis. Retropharyngeal space: Unremarkable. Submandibular/Parotid glands: Normal. Glands are normal in size. Thyroid: A nonspecific 2.5 cm mass is present in the left thyroid gland. A follow-up thyroid ultrasound is suggested. Lymph nodes: Numerous small non-specific bilateral cervical chain lymph nodes are present. Trachea: Visualized trachea is unremarkable. Lungs: Unremarkable as visualized. Bones/joints: Extensive sclerotic osseous metastatic disease is present. No pathologic fracture is seen. Vasculature: A large filling defect is present within the inferior left internal jugular vein, compatible with thrombus. This spans a 4 cm segment of the jugular vein, just above the entrance of the Port-A-Cath. Soft tissues: Unremarkable. No significant soft tissue swelling. IMPRESSION: 1. A large filling defect is present within the inferior left internal jugular vein, compatible with thrombus. This spans a 4 cm segment of the jugular vein, just above the entrance of the Port-A-Cath. 2. Extensive osseous metastatic disease COMMENTS: Consistent with the [employer]'s Incidental Findings Committee white paper ([employer]iol 2015): In patients aged 35 years and older with an incidental thyroid nodule equal to or greater than 1.[address], MRI or extrathyroidal US, further evaluation with dedicated thyroid US is recommended for patients with normal life expectancy and without comorbidities. For smaller nodules without suspicious features, no further evaluation or follow up is recommended. Electronically signed by: Gab Broussard On 08/29/2020 11:14:58 AM
--- NOTE | 2020-08-29 11:33 | REP ---
INDICATION: BREAST CA W/ METS. COMPARISON: Comparison CT study of the chest is from May 16, 2020.. TECHNIQUE: Helical scanning is acquired following the intravenous injection of 100 mL of Isovue 370. Axial 3 mm images are re-formatted. Coronal and sagittal MPR images are generated. FINDINGS: Prior CT study from May 16, 2020 showed numerous metastatic pulmonary nodules. There is significant improvement. Many of the previously identified metastatic nodules have regressed completely. There is a 8 mm nodule in the right middle lobe adjacent to the right heart border. This projects on page 61 of 116 in series 304 of today's study. It has decreased in volume but continues to measure 8 mm. A 12 mm nodule previously noted more anteriorly in the right middle lobe has decreased to 8 mm in size today. No new metastatic pulmonary nodule is seen. There has been similar improvement in the previously noted mediastinal and hilar adenopathy. An aorticopulmonary window region lymph node previously measured at 19 mm currently measures 12 mm. Precarinal lymph node has decreased from 27 mm to 16 mm in greatest diameter. A right pretracheal lymph node previously measured 22 mm, today 15 mm. No new adenopathy is seen. There is a lymph node in the left axilla which is a slightly larger than on the prior CT study, 9 x 16 x 15 mm. Low in the left axilla there is another 1 cm lymph node which appears spherical and is new. The previously noted left thyroid nodule is again seen. There is a left-sided Mkgitx-Z-Xazo catheter and there is a small thrombus in the internal jugular vein just above this Zxhurr-W-Adnb catheter entry site. There is minimal fatty infiltration of the liver. There are several small foci of low density in the liver which are not definitely apparent previously. There is a stable left adrenal nodule measuring 2.5 cm in diameter. Widespread skeletal blastic metastatic disease is seen throughout the visualized skeleton. These sclerotic skeletal metastases are more numerous than on prior study. No fracture or collapse is seen. No pathologic fracture seen. IMPRESSION: Significant improvement is noted in the pulmonary parenchymal and hilar and mediastinal findings. The blastic skeletal metastatic disease is more extensive than on the May 16, 2020 study. No lytic metastases are parent. There are 2 suspicious lymph nodes in the left axilla, 1 of which is new and the other a little larger than on prior study. Several small low-density liver lesions. <Electronically signed by Reynaldo Boyle > 08/29/20 [id number]
--- NOTE | 2020-08-29 11:44 | REP ---
INDICATION: BREAST CA W/ METS. COMPARISON: Comparison CT study 16 May 2020.. TECHNIQUE: Helical scanning is acquired and 3 mm axial images re-formatted. Coronal and sagittal MPR images are generated. The CT contrast enhancement dose is 100 mL of intravenous Isovue 370. FINDINGS: Preliminary digital jordan man radiograph shows clips in right upper quadrant. Bowel gas pattern is unremarkable. There is a stable left adrenal nodule measuring 2.4 cm in greatest diameter. Right adrenal gland is normal. The spleen is unremarkable. There are multiple ill-defined small low-density areas in the liver which appear to be new suspicious for metastatic foci. The largest of these measures 1.5 cm in diameter. No pancreatic lesion is seen. The kidneys enhance symmetrically and are morphologically intact. No mesenteric or omental adri disease is seen. No pelvic mass or adenopathy is observed. Uterus is surgically absent. Urinary bladder is unremarkable. Small and large bowel loops are normal in the abdomen and pelvis. On bone window settings there is widespread mottled pattern of sclerotic density throughout the visualized skeleton consistent with sclerotic metastatic disease. No pathologic fracture or lytic skeletal metastatic disease is appreciated. The sclerotic skeletal metastatic disease is more extensive than on the prior study. IMPRESSION: There are several new small low-density lesions in the liver suspicious for hepatic metastases. The sclerotic skeletal metastatic disease is more extensive than on May 16, 2020 study. <Electronically signed by Reynaldo Boyle > 08/29/20 [id number]
== END ==
LOC: M RAD 07:52
PROVIDERS: ATTEND Internal Medicine Medical Oncology
DX: C50.919 Malignant neoplasm of unspecified site of unspecified female breast (principal); R91.8 Other nonspecific abnormal finding of lung field; K76.9 Liver disease, unspecified
CPT/HCPCS: 70491; 71260; 74177; Q9963; Q9967

== ENCOUNTER → 2020-08-29 | Outpatient (CLI) | payer BC ==
[~2020-08-29] MED LIST changes: -GASTROGRAFIN SOLUTION 30ML (Q9963) As Ordered ONE; -ISOVUE-370 76% 100ML VIAL As Ordered ONE
[2020-08-29 08:40] LABS: IRON (FE) 119 UG/DL (50-170)
[2020-08-29 10:08] LABS: VITAMIN B12 LEVEL > 2000 PG/ML (247-911)
[2020-08-29 10:23] LABS: TOTAL 25(OH) VITAMIN D 28.6 NG/ML (30.0-100.0)
== END ==
LOC: M LAB 07:54
PROVIDERS: ATTEND Internal Medicine
DX: R53.83 Other fatigue (principal)

== ENCOUNTER → 2020-09-19 | Outpatient (CLI) | payer BC ==
[~2020-09-19] MED LIST changes: +CELE10TA PO; +PROHANCE 279.3MG/ML 15ML VIAL As Ordered ONE; +VITACAP8 PO
--- NOTE | 2020-09-19 13:32 | REP ---
INDICATION: BREAST CA W/ TAPIA'S W/ NAUSEA/CONFUSION CALL [id number]. COMPARISON: Comparison brain MRI study is from June 26, 2015.. TECHNIQUE: Axial and sagittal imaging planes are utilized for T1 and T2-weighted scans. Sequences include spin-echo, fast spin echo, FLAIR, and diffusion weighted sequences. 9 mL of intravenous ProHance is administered and post gadolinium enhanced imaging is acquired in all 3 planes using T1 fat sat imaging. FINDINGS: No bony calvarial lesion is seen. No intraorbital mass is seen. There is no MR evidence of significant paranasal sinus disease. The deep facial and skull base soft tissues are symmetric. Diffusion-weighted scans show no evidence of restricted diffusion to suggest acute ischemia. There is no evidence of intracranial mass or hemorrhage. 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 This is unchanged from the June 26, 2015 prior MRI study. No other vascular abnormality is seen. Postcontrast imaging shows enhancement in the expected vasculature. No other abnormal intracranial contrast enhancement is appreciated. There is no extra-axial fluid collection or midline shift. No infarct is seen. IMPRESSION: There is no evidence of intracranial metastatic disease. A incidental finding of a developmental venous anomaly is seen in the right cerebellar hemisphere unchanged from prior studies. Otherwise negative MRI study of the brain. <Electronically signed by Reynaldo Boyle > 09/19/20 [id number]
== END ==
LOC: M RAD 07:43
PROVIDERS: ATTEND Internal Medicine Medical Oncology
DX: R91.8 Other nonspecific abnormal finding of lung field (principal)
CPT/HCPCS: 70553; A9576

== ENCOUNTER → 2020-09-21 | Outpatient (CLI) | payer BC ==
[~2020-09-21] MED LIST changes: +HYDR-3713 PO; -PROHANCE 279.3MG/ML 15ML VIAL As Ordered ONE
[2020-09-21 09:00] LABS: BASO # 0.1 10^3/uL (0.0-0.2); BASO % 3.3 % (0.0-1.0); EOS # 0.1 10^3/uL (0.0-0.5); EOS % 2.1 % (0.0-3.0); HEMATOCRIT 35.9 % (36.0-47.0); HEMOGLOBIN 11.6 g/dl (12.0-15.5); LYMPH % 40.6 % (24.0-44.0); MEAN CORPUSCULAR HEMOGLOBIN 29.7 pg (27.0-33.0); MEAN CORPUSCULAR HGB CONC 32.3 g/dl (32.0-36.5); MEAN CORPUSCULAR VOLUME 92.1 fl (80.0-96.0); MONO # 0.3 10^3/uL (0.0-0.8); MONO % 10.5 % (2.0-8.0); NEUTROPHILS % 41.8 % (36.0-66.0); PLATELET COUNT, AUTOMATED 191 10^3/uL (150-450); WHITE BLOOD COUNT 2.4 10^3/uL (4.0-10.0)
[2020-09-21 09:18] LABS: ALBUMIN 3.3 GM/DL (3.2-5.2); BILIRUBIN,TOTAL 1.2 MG/DL (0.2-1.0); CALCIUM LEVEL 7.9 MG/DL (8.8-10.2); CREATININE FOR GFR 1.25 MG/DL (0.55-1.30); GLOMERULAR FILTRATION RATE 46.2 (>45); POTASSIUM SERUM 3.6 MEQ/L (3.5-5.1); TOTAL PROTEIN 7.3 GM/DL (6.4-8.2)
[2020-09-21 14:16] LABS: CA15-3 ANTIGEN 92.9 U/ML (<32.4)
[2020-09-22 06:23] LABS: CA 27.29 372.4 U/mL (0.0-38.6)
== END ==
LOC: M LAB 08:10
PROVIDERS: ATTEND Internal Medicine Medical Oncology
DX: R91.8 Other nonspecific abnormal finding of lung field (principal)

== ENCOUNTER → 2020-09-26 | Outpatient (CLI) | payer BC ==
--- NOTE | 2020-09-26 08:46 | REP ---
INDICATION: ELEVATED LFT'S LABS 1ST CT 2ND. COMPARISON: Comparison sonography is from December 09, 2018. Comparison is made with recent CT study August 29, 2020.. TECHNIQUE: Right upper quadrant sonography. FINDINGS: Scanning through the right upper quadrant of the abdomen demonstrates a normal sized liver. Liver parenchyma texture is somewhat coarse and heterogeneous. There are multiple hepatic nodules consistent with metastatic disease. Several of these are hypoechoic and a few are slightly hyperechoic. The largest of these measures 2.1 x 2.2 x 1.4 cm. There distributed in the right lobe and left lobe. Findings are similar to August 29, 2020 CT study. The gallbladder is surgically absent. Common bile duct is normal measuring 0.5 cm in greatest diameter. There is no evidence of ascites. No right renal abnormality is noted. The right kidney measures 11.9 x 4.4 x 4.0 cm. Pancreas is obscured by abdominal gas. IMPRESSION: Multiple small hepatic soft tissue nodules consistent with metastases. Similar to findings from August 29, 2020 CT. The largest lesion measures 2.2 cm in greatest diameter. Otherwise negative.. <Electronically signed by Reynaldo Boyle > 09/26/20 1204
[2020-09-26 08:57] LABS: HEMATOCRIT 37.7 % (36.0-47.0); HEMOGLOBIN 11.9 g/dl (12.0-15.5); MEAN CORPUSCULAR HEMOGLOBIN 30.1 pg (27.0-33.0); MEAN CORPUSCULAR HGB CONC 31.6 g/dl (32.0-36.5); MEAN CORPUSCULAR VOLUME 95.2 fl (80.0-96.0); PLATELET COUNT, AUTOMATED 163 10^3/uL (150-450); RED BLOOD COUNT 3.96 10^6/uL (4.00-5.40); WHITE BLOOD COUNT 9.4 10^3/uL (4.0-10.0)
[2020-09-26 09:36] LABS: ALBUMIN 3.4 GM/DL (3.2-5.2); ALT/SGPT 246 U/L (12-78); BILIRUBIN,TOTAL 1.1 MG/DL (0.2-1.0); BLOOD UREA NITROGEN 22 MG/DL (7-18); CALCIUM LEVEL 8.7 MG/DL (8.8-10.2); CARBON DIOXIDE LEVEL 27 MEQ/L (21-32); CHLORIDE LEVEL 105 MEQ/L (98-107); CREATININE FOR GFR 1.08 MG/DL (0.55-1.30); GLOMERULAR FILTRATION RATE 54.7 (>45); GLUCOSE, FASTING 116 MG/DL (70-100); POTASSIUM SERUM 4.1 MEQ/L (3.5-5.1); SODIUM LEVEL 140 MEQ/L (136-145); TOTAL PROTEIN 7.4 GM/DL (6.4-8.2)
[2020-09-26 09:37] LABS: ATYPICAL LYMPH 1 % (0-5); BASOPHILS 3 % (0-1); HYPOCHROMASIA 2+; LYMPHOCYTES 21 % (16-44); MONOCYTES 5 % (0-5); NEUTROPHILS 70 % (28-66); PLATELET ESTIMATE DECREASED (NORMAL)
[2020-09-26 09:46] LABS: HEPATITIS B SURFACE ANTIBODY NEGATIVE (POSITIVE)
[2020-09-26 09:56] LABS: HEPATITIS B SURFACE ANTIGEN NEGATIVE (NEGATIVE)
[2020-09-26 10:24] LABS: CA15-3 ANTIGEN 153.2 U/ML (<32.4); HEPATITIS B CORE ANTIBODY IGM NEGATIVE (NEGATIVE)
== END ==
LOC: M LAB 07:43 → M RAD 07:43
PROVIDERS: ATTEND Internal Medicine Medical Oncology
DX: K76.89 Other specified diseases of liver (principal)

== ENCOUNTER → 2020-09-30 | Outpatient (CLI) | payer BC ==
[2020-09-30 09:35] LABS: HEMATOCRIT 35.4 % (36.0-47.0); HEMOGLOBIN 11.2 g/dl (12.0-15.5); MEAN CORPUSCULAR HEMOGLOBIN 30.1 pg (27.0-33.0); MEAN CORPUSCULAR HGB CONC 31.6 g/dl (32.0-36.5); MEAN CORPUSCULAR VOLUME 95.2 fl (80.0-96.0); PLATELET COUNT, AUTOMATED 220 10^3/uL (150-450); RED BLOOD COUNT 3.72 10^6/uL (4.00-5.40); WHITE BLOOD COUNT 16.4 10^3/uL (4.0-10.0)
[2020-09-30 10:00] LABS: ATYPICAL LYMPH 5 % (0-5); EOSINOPHILS 2 % (0-3); LYMPHOCYTES 7 % (16-44); METAMYELOCYTES 2 % (0-0); MONOCYTES 4 % (0-5); NEUTROPHILS 76 % (28-66)
[2020-09-30 10:03] LABS: ALBUMIN 3.2 GM/DL (3.2-5.2); ANISOCYTOSIS 1+; BILIRUBIN,TOTAL 1.3 MG/DL (0.2-1.0); CALCIUM LEVEL 8.3 MG/DL (8.8-10.2); CREATININE FOR GFR 1.19 MG/DL (0.55-1.30); GLOMERULAR FILTRATION RATE 48.9 (>45); TOTAL PROTEIN 6.9 GM/DL (6.4-8.2)
[2020-09-30 10:05] LABS: POLYCHROMASIA 1+; STOMATOCYTES 1+
[2020-09-30 10:06] LABS: PLATELET CLUMPS SMALL AMT; PLATELET ESTIMATE NORMAL (NORMAL)
[2020-09-30 10:11] LABS: HEMOGLOBIN A1c 6.2 %
== END ==
LOC: M LAB 08:59
PROVIDERS: ATTEND Physician Assistant
DX: E11.40 Type 2 diabetes mellitus with diabetic neuropathy, unspecified (principal)

== ENCOUNTER 2020-10-10 09:55 | Emergency (ER) | payer BC ==
[~2020-10-10] VITALS: Ht 170.2 cm; Wt 95.0 kg
[2020-10-10 12:35] LABS: HEMOGLOBIN 12.6 g/dl (12.0-15.5); MEAN CORPUSCULAR HEMOGLOBIN 29.9 pg (27.0-33.0); MEAN CORPUSCULAR HGB CONC 32.3 g/dl (32.0-36.5); MEAN CORPUSCULAR VOLUME 92.4 fl (80.0-96.0); PLATELET COUNT, AUTOMATED 160 10^3/uL (150-450); RED BLOOD COUNT 4.22 10^6/uL (4.00-5.40); WHITE BLOOD COUNT 3.6 10^3/uL (4.0-10.0)
[2020-10-10] MEDS ORDERED: NS 1,000 ML IV ONE ×2 (12:50→15:30)
[2020-10-10 13:10] LABS: ATYPICAL LYMPH 2 % (0-5); BASOPHILS 2 % (0-1); LYMPHOCYTES 21 % (16-44); MONOCYTES 1 % (0-5); NEUTROPHILS 73 % (28-66)
[2020-10-10 13:12] LABS: ANISOCYTOSIS 1+; PLATELET ESTIMATE NORMAL (NORMAL)
[2020-10-10 13:19] LABS: ALBUMIN 3.1 GM/DL (3.2-5.2); BILIRUBIN,DIRECT 2.2 MG/DL (0.0-0.2); BILIRUBIN,TOTAL 2.9 MG/DL (0.2-1.0); CREATININE FOR GFR 1.27 MG/DL (0.55-1.30); GLOMERULAR FILTRATION RATE 45.4 (>45); TOTAL PROTEIN 7.2 GM/DL (6.4-8.2)
[2020-10-10] MEDS ORDERED: ONDANSETRON 4MG/2ML VIAL IV ONE (16:10)
[2020-10-10 17:30] VITALS: BP 121/58
--- NOTE | 2020-10-10 17:36 | ECGEPIP ---
[facility] - ED Test Date: 2020-10-10 Pat Name: ROOSEVELT DALTON Department: Room: - Gender: Female Edger Feeder: CHRISTOS : 1960 Requested By: Kanu Jorgensen Order Number: [id number] Reading MD: Zoila Martínez Measurements Intervals Conifer Rate: 98 P: 59 NE: 142 QRS: 31 QRSD: 78 T: 53 QT: 368 QTc: 469 Interpretive Statements Normal sinus rhythm similar 01/22/18 Electronically Signed on 10-10-2020 17:35:55 EDT by Zoila Martínez
== END 2020-10-10 18:26 | disposition home or self-care (01) ==
LOC: M ED 09:55
DX: E86.0 Dehydration (principal); C50.911 Malignant neoplasm of unspecified site of right female breast; C78.7 Secondary malignant neoplasm of liver and intrahepatic bile duct; E11.9 Type 2 diabetes mellitus without complications; E78.5 Hyperlipidemia, unspecified; K21.9 Gastro-esophageal reflux disease without esophagitis; Z79.899 Other long term (current) drug therapy; Z88.8 Allergy status to other drugs, medicaments and biological substances; Z91.048 Other nonmedicinal substance allergy status
CPT/HCPCS: 80048; 80076; 85025; 93005; 96361; 96374; 99284; J2405

== ENCOUNTER 2020-10-30 12:12 | Emergency (ER) | payer BC ==
[~2020-10-30] VITALS: Ht 170.2 cm; Wt 93.4 kg
[~2020-10-30 12:12] MED LIST changes: +PRED10TA2 PO
[2020-10-30] MEDS ORDERED: ISOVUE-370 76% 100ML VIAL As Ordered ONE (13:09)
--- NOTE | 2020-10-30 14:08 | REP ---
INDICATION: obstructive jaundice. COMPARISON: 08/29/2020 TECHNIQUE: Axial contrast-enhanced images from the lung bases to the pubic symphysis using 100 cc Isovue 370 intravenous contrast material. Coronal and sagittal reformations obtained. This CT examination was performed using the following dose reduction techniques: Automated exposure control, adjustment of mA and/or kv according to the patient's size, and the use of iterative reconstruction technique. FINDINGS: The liver demonstrates a mottled contour along with diffusely heterogeneous parenchymal echotexture and scattered small hypodense lesions all of which appears increased from prior examination. Findings likely represent cirrhosis with elements of portal venous hypertension although underlying pathology including malignancy cannot definitively be excluded. Spleen is moderately enlarged. Pancreas, right adrenal gland, and bilateral kidneys are relatively normal/stable. Left adrenal gland again demonstrates 2.4 cm heterogeneous lesion unchanged in appearance and size. There is no evidence for bowel obstruction. Mild mucosal thickening of the descending and sigmoid colon is nonspecific and may reflect a mild colitis.. Pelvis demonstrates normal bladder and evidence for prior hysterectomy. Small amount of ascites identified extending into the pelvis possibly related to cirrhosis. No free air. No obvious adenopathy. Abdominal aorta and vasculature without aneurysm or dissection. Skeletal structures demonstrate mottled sclerotic lesions throughout the visualized vertebral bodies and pelvis as well as the visualized proximal femurs consistent with metastatic disease. IMPRESSION: 1. Heterogeneous hepatic parenchyma with scattered low-density lesions appear more prominent than prior examination and suspicious for underlying malignancy/metastatic disease. 2. Diffuse sclerotic lesions throughout the visualized skeletal structures consistent with underlying metastatic disease. 3. Small amount of ascites extending into the pelvis is nonspecific. 4. Mild colitis involving the distal and sigmoid colon cannot be excluded. <Electronically signed by Deandre Carson > 10/30/20 [id number]
[2020-10-30] MEDS ORDERED: VITA400C53 PO (14:47)
[2020-10-30] MEDS ORDERED: FENO1CAP18 PO (14:47)
[2020-10-30] MEDS ORDERED: ATOR1TAB21 PO (14:47)
--- NOTE | 2020-10-30 16:24 | REP ---
INDICATION: Evaluate CBD COMPARISON: 09/26/2020 TECHNIQUE: Real time renner scale ultrasound examination using curved array transducer. FINDINGS: Evidence for prior cholecystectomy noted. No biliary ductal dilatation is appreciated and the common bile duct measures 6 mm diameter. The liver is heterogeneous and demonstrates nodular contour consistent with cirrhosis. Subtle small hepatic lesions measuring up to roughly 1.6 cm are suggested. The pancreas is normal in appearance by ultrasound evaluation. Right kidney is normal in reniform shape without hydronephrosis and measures 10.9 x 4.3 x 3.9 cm. No ascites. IMPRESSION: 1. Cirrhotic changes to the liver. Scattered hepatic hypodensities cannot be excluded. 2. Prior cholecystectomy. No biliary ductal dilatation appreciated. <Electronically signed by Deandre Carson > 10/30/20 [id number]
[2020-10-30 16:38] LABS: INR 1.04; PROTHROMBIN TIME 13.8 SECONDS (12.5-14.3)
[2020-10-30 16:39] LABS: PARTIAL THROMBOPLASTIN TIME 38.2 SECONDS (24.2-38.5)
[2020-10-30 16:57] LABS: RSV AMPLIFICATION NEGATIVE (NEGATIVE)
[2020-10-30 17:56] VITALS: BP 134/76
--- NOTE | 2020-10-30 18:09 | CR ---
CONSULTATION DATE: 10/30/2020 CONSULTATION FOR: Dr. Salazar PRIMARY CARE PROVIDER: HERLINDA Quinn HISTORY OF PRESENT ILLNESS: Oly Matute was sent over by Dr. Rivera to the Emergency Room for some IV fluids. She had an elevated bilirubin. Workup has shown metastatic disease and probable cirrhosis of the liver but no obstructive jaundice or any treatable condition. MEDICAL HISTORY: She has a history of metastatic breast cancer, axillary mediastinal adenopathy, presumed lung and liver metastases followed by [facility]. She had a series of chemotherapy regimens. Per my discussion with Dr. Rivera, the patient is unwilling to discuss her poor prognosis, sent Dr. Rivera an E-mail telling her not to give her "any bad news." Other past medical history shows fatty liver, type-2 diabetes with neuropathy, depression, hyperlipidemia, history of cholecystectomy, BRAC gene negative. SURGICAL HISTORY: FÁTIMA/BSO, left salpingo oophorectomy in 1986, right salpingo oophorectomy in 2017, left shoulder surgery, left knee surgery 2011, right breast lumpectomy, sentinel lymph node biopsy 12/17. She has a history of rheumatoid arthritis. FAMILY HISTORY: Sister had lung cancer. SOCIAL HISTORY: Never smoked, no alcohol. , two children. REVIEW OF SYSTEMS: She says she feels "just fine." No nausea, vomiting, or diarrhea, fever, chills, night sweats, abdominal pain. Appetite is good. She has had darkening of urine color and lightening of stools. HOME MEDICATIONS: The list was reviewed. PHYSICAL EXAM: VITAL SIGNS: Per flow sheet. She is afebrile. GENERAL APPEARANCE: She is resting comfortably in no distress, mildly jaundiced. HEENT: Pupils equal, round, reactive to light. Tympanic membranes (TMs) and oropharynx benign. Mucous membranes moist. LUNGS: Clear. HEART: Regular rate and rhythm. ABDOMEN: Soft, nontender. No masses. No palpable ascites. EXTREMITIES: No clubbing, cyanosis, or edema. Normal strength in the arms and legs. No asterixis. LABS: White count 7.5, hemoglobin 9.9 which is stable. Platelets 171. Sodium 132, potassium 3.9, BUN 31, creatinine 1.0 (creatinine is actually better than what it was two weeks ago). Bilirubin is 6.7. On 10/19 it was 3.3. AST 628, ALT 280, alkaline phosphatase 1420. Tumor markers were elevated. CA27-29 is 934. CA15-3 is 357. COVID test is negative. CT scan of abdomen and pelvis shows coarse cirrhotic-appearing liver. There are no dilated ducts. Common bile duct is normal size. Liver ultrasound showed no evidence of biliary ductal dilatation. Common bile duct is only 6 mm. Liver was heterogeneous, nodular contour, multiple small hepatic lesions. No intra or extrahepatic ductal dilatation. IMPRESSION AND PLAN: 1. Jaundice. I think this is due to cholestatic jaundice from metastatic disease in the liver superimposed on cirrhosis probably from her fatty liver. This is at a treatable condition. She feels well and there is no treatment in the hospital that is going to be offered to change this situation. She does not have obstructive jaundice which is the reason I was called to evaluate her. There is no certainly no role for Interventional Radiology. I called Dr. Rivera and we discussed the case. She agrees with the patient being discharged home and would like her to call her in the office tomorrow to discuss her prognosis further. 2. Metastatic breast cancer, poor prognosis. Per Dr. Rivera the patient is unwilling to discuss this with her. 3. Other medical problems can be through her primary care provider.
== END 2020-10-30 17:57 | disposition home or self-care (01) ==
LOC: M ED 12:12
DX: K83.1 Obstruction of bile duct (principal); C78.1 Secondary malignant neoplasm of mediastinum; E78.5 Hyperlipidemia, unspecified; Z88.8 Allergy status to other drugs, medicaments and biological substances; Z91.048 Other nonmedicinal substance allergy status; Z79.899 Other long term (current) drug therapy; Z92.21 Personal history of antineoplastic chemotherapy

== ENCOUNTER 2020-11-17 09:52 | Inpatient (IN) | payer BC ==
[~2020-11-17] VITALS: Ht 170.2 cm; Wt 97.8 kg
[2020-11-17 10:29] LABS: BASO # 0.1 10^3/uL (0.0-0.2); BASO % 0.8 % (0.0-1.0); EOS % 0.4 % (0.0-3.0); HEMATOCRIT 37.4 % (36.0-47.0); HEMOGLOBIN 12.4 g/dl (12.0-15.5); LYMPH # 2.5 10^3/uL (1.5-5.0); LYMPH % 26.8 % (24.0-44.0); MEAN CORPUSCULAR HEMOGLOBIN 30.9 pg (27.0-33.0); MEAN CORPUSCULAR HGB CONC 33.2 g/dl (32.0-36.5); MEAN CORPUSCULAR VOLUME 93.3 fl (80.0-96.0); MONO # 1.3 10^3/uL (0.0-0.8); MONO % 13.6 % (2.0-8.0); NEUTROPHILS % 53.4 % (36.0-66.0); PLATELET COUNT, AUTOMATED 186 10^3/uL (150-450); RED BLOOD COUNT 4.01 10^6/uL (4.00-5.40); WHITE BLOOD COUNT 9.4 10^3/uL (4.0-10.0)
--- NOTE | 2020-11-17 11:24 | REP ---
INDICATION: trauma. There is a history of metastatic breast carcinoma. COMPARISON: Comparison chest CT study August 29, 2020. Comparison is also made with chest x-ray from April 29, 2018.. TECHNIQUE: Five views including PA chest. FINDINGS: EKG monitoring electrodes and a a left internal jugular Lkumph-X-Gofc catheter are noted. There are surgical clips in the right axillary soft tissues. The lungs are symmetrically aerated and clear on PA chest radiograph. Pleural angles are sharp. No infiltrate or pneumothorax is seen. Multiple views of the right rib cage show some mottled sclerotic change consistent with patient's known skeletal metastatic disease. No lytic lesion or pathologic fracture is seen. No traumatic fracture is appreciated. There are clips in right upper quadrant the abdomen. Vertebral body heights are preserved with mild discogenic spurs. IMPRESSION: No right rib fracture noted. No acute cardiopulmonary disease. Known blastic skeletal metastatic changes. <Electronically signed by Reynaldo Boyle > 11/17/20 [id number]
--- NOTE | 2020-11-17 11:26 | REP ---
INDICATION: trauma. COMPARISON: Comparison [facility] study December 10, 2019.. TECHNIQUE: Five views of the lumbar spine are obtained. FINDINGS: Lumbar vertebral body heights are preserved. No fracture or collapse is seen. There are degenerative disc changes mild in degree at L4-5, L3-4, and L5-S1. Discogenic spurring is seen at the thoracolumbar junction as well. There is some facet joint hypertrophy bilaterally at L5-S1 and L4-5. Psoas margins symmetric. Pedicles and posterior elements show no evidence of fracture. There is a nearly diffuse extensive pattern of sclerotic change throughout the visualized skeleton consistent with known blastic metastatic involvement. No lytic lesion is appreciated. IMPRESSION: Widespread blastic skeletal metastatic involvement. No pathologic or traumatic fracture seen. Mild degenerative spondylosis changes. <Electronically signed by Reynaldo Boyle > 11/17/20 [id number]
[2020-11-17 12:09] LABS: RSV AMPLIFICATION NEGATIVE (NEGATIVE)
[2020-11-17 12:42] LABS: ALBUMIN 1.8 GM/DL (3.2-5.2); BILIRUBIN,DIRECT 11.6 MG/DL (0.0-0.2); BILIRUBIN,TOTAL 14.1 MG/DL (0.2-1.0); CALCIUM LEVEL 6.1 MG/DL (8.8-10.2); CREATININE FOR GFR 1.24 MG/DL (0.55-1.30); GLOMERULAR FILTRATION RATE 46.7 (>45); MB/CK RELATIVE INDEX 0.6 (< OR =4); POTASSIUM SERUM 2.9 MEQ/L (3.5-5.1); TOTAL PROTEIN 4.9 GM/DL (6.4-8.2); TROPONIN I 0.03 NG/ML (< 0.10)
[2020-11-17] MEDS ORDERED: KCL 10MEQ/100ML SWI (KRUN) 10 MEQ in IV 1 EA IV ONE (14:00)
[2020-11-17] MEDS ORDERED: CALCIUM GLUCONATE 1,000 MG in D5W MINI-BAG PLUS 100 ML IV ONE (14:00)
[2020-11-17] MEDS ORDERED: POTA1TAB14 PO (14:20)
[2020-11-17] MEDS ORDERED: D 50CAP2 PO (14:20)
[2020-11-17] MEDS ORDERED: ONDANSETRON 4MG/2ML VIAL IV ONE (14:45)
[2020-11-17] MEDS ORDERED: POTASSIUM CHLORIDE 10 MEQ SR TABLET PO ONE (16:00)
[2020-11-17 17:00] VITALS: BP 111/59
--- NOTE | 2020-11-17 17:32 | HPEPDOC ---
General Date of Admission 11/17/20 Date of Service: Nov 17, 2020 Chief Complaint The patient is a 60-year-old female admitted with a reason for visit of Weakness. Source: Patient, RN/MD History of Present Illness 60-year-old female with metastatic breast cancer with mets to bones, lungs and liver, cholestatic jaundice from malignant infiltration of liver, with extremely poor prognosis however has refused hospice referral when discussed by Dr. Rivera this a.m. Her labs from yesterday did show some hypokalemia and hypocalcemia. She wanted to be admitted to the hospital for extreme generalized weakness and failure to thrive so was sent to the emergency room from the oncology office. She reported that she had 2 falls in the past week without any trauma. She has been using the walker for the past week in spite of that she fell. The last fall was yesterday when she fell on her right side and her buttocks. She hit her chest wall and now she complains of a dull aching pain in the right chest wall about 5/10 in intensity , with no radiation. She reported that her legs are very weak and her knees just gave out. She also complain of some dull aching pain in the hips and the low back. Work-up in the ED showed hypokalemia with a potassium of 2.9 hypocalcemia with a calcium of 6.1 and severe cholestatic jaundice with a total bili of 14 direct of 12 elevated AST ALT and alkaline phosphatase. I again discussed advantage directives with her and she wanted to be full code. Did not want to be referred to hospice She is admitted for generalized weakness failure to thrive. Home Medications Scheduled Atorvastatin Calcium (Atorvastatin Calcium) 20 Mg Tablet, 20 MG PO QHS, (Reported) Bupropion Hcl (Bupropion Xl) 150 Mg Tab, 150 MG PO DAILY, (Reported) Chlorthalidone (Chlorthalidone) 25 Mg Tablet, 25 MG PO DAILY, (Reported) Cholecalciferol (Vitamin D3) (Vitamin D3) 125 Mcg Capsule, 125 MCG PO DAILY, (Reported) Citalopram Hydrobromide (Celexa) 10 Mg Tablet, 10 MG PO DAILY, (Reported) Enoxaparin Sodium (Lovenox) 150 Mg/1 Ml Syringe, 150 MG SC DAILY Esomeprazole Magnesium (Esomeprazole Magnesium) 40 Mg Cap, 40 MG PO DAILY, ( Reported) Fenofibrate,Micronized (Fenofibrate) 130 Mg Capsule, 130 MG PO QHS, (Reported) Gabapentin (Gabapentin) 300 Mg Capsule, 600 MG PO BID, (Reported) Hydroxyzine HCl (Hydroxyzine HCl) 25 Mg Tablet, 25 MG PO QHS, (Reported) Multivitamin (Multi-Vitamin Daily) 1 Each Tablet, 1 TAB PO DAILY, (Reported) Potassium Chloride (Potassium Chloride) 20 Meq Tablet.er, 20 MEQ PO BID, (Reported) Prednisone (Prednisone) 10 Mg Tablet, 3 TAB PO DAILY Vitamin B Complex (Vitamin B Complex) 1 Each Capsule, 1 CAP PO QHS, (Reported) Vitamin E (Vitamin E) 400 Unit Capsule, 400 UNIT PO QHS, (Reported) Scheduled PRN Hydrocodone/Acetaminophen (Hydrocodone-Acetamin 5-325 mg) 1 Each Tablet, 1 TAB PO Q6HP PRN for pain Ondansetron HCl (Ondansetron HCl) 8 Mg Tablet, 8 MG PO Q8H PRN for NAUSEA OR VOMITING Allergies Coded Allergies: adhesive (Verified Allergy, Intermediate, rash, 04/18/20) adhesives; steri strips; bandaides ; paper tape blister tega derm if x 24hrs nitrofurantoin (Verified Adverse Reaction, Intermediate, vomiting, 04/18/20) Past Medical History Medical History Metastatic breast cancer with metastases to bones liver and lungs and lymph nodes ( different from the previous breast cancer) Right breast cancer in 2014 triple negative had surgery,radiation and chemo Rheumatoid arthritis Cirrhosis of liver Obstructive jaundice Shingles Anxiety Hiatal hernia Back pain/ herniated disc History of diabetes History of hyperlipidemia Covid positive on 08/03/2020 Surgical History FÁTIMA with bilateral salpingo-oophorectomy, left ovary removed in 2017 left shoulder surgery 1991 left knee surgery 2011, right breast lumpectomy, sentinel lymph node biopsy 12/17. Cholecystectomy Appendectomy Breast reconstructive surgery in 2019 Eyelid lift in 2019 Family History FATHER: 64 YRS, EMPHYSEMA MOTHER: 91 YRS, BOWEL CANCER, DIABETES SIBLINGS: RHEUMATOID ARTHRITIS Sister had lung cancer. Social History * Smoker: non-smoker Alcohol: Denies Drugs: denies A-FIB/CHADSVASC A-FIB History Current/History of A-Fib/PAF?: No Review of Systems Constitutional: Reports: Weakness, Fatigue; Denies: Chills, Fever, Night Sweats Eyes: Denies: Pain, Vision change ENT: Denies: Head Aches, Ear Pain, Dysphagia Skin: Reports: Jaundice Pulmonary: Denies: Dyspnea, Cough Cardiovascular: Reports: Chest Pain, Edema, Lt Headedness Gastrointestinal: Reports: Nausea; Denies: Vomiting, Abdominal Pain, Diarrhea Genitourinary: Denies: Dysuria, Frequency, Incontinence, Retention Hematologic: Denies: Bruising, Bleeding Excessively Musculoskeletal: Reports: Back Pain, Joint Pain (Hip pain) Neurological: Reports: Weakness (Generalized); Denies: Numbness, Change in speech, Confusion Physical Examination General Exam: Positive: Alert, Cooperative, No Acute Distress Eye Exam: Positive: PERRLA, Conjunctiva & lids normal, EOMI, Sclera icteric ENT Exam: Positive: Atraumatic, Mucous membr. moist/pink, Pharynx Normal, Other ENT (Bitemporal wasting) Neck Exam: Positive: Supple; Negative: JVD, thyromegaly Chest Exam: Positive: Clear to auscultation, Normal air movement Heart Exam: Positive: Rate Normal, Regular Rhythm, Normal S1, Normal S2; Negative: Murmurs, Rubs Telemetry: Positive: No significant arrhythmia Abdomen Exam: Positive: Normal bowel sounds, Soft, Hernia; Negative: BS Hyperactive, BS Hypoactive, Tenderness Extremity Exam: Positive: Edema (2+), Normal pulses; Negative: Clubbing, Cyanosis Skin Exam: Positive: Other skin issue (Jaundice) Neuro Exam: Positive: Normal Speech, Strength at 5/5 X4 ext, Normal Tone Psych Exam: Positive: Memory Intact, Oriented x 3 Vital Signs Vital Signs Date Time Temp Pulse Resp B/P (MAP) Pulse Ox O2 Delivery O2 Flow Rate FiO2 11/17/20 12:32 99 99 11/17/20 12:30 100/52 (68) 11/17/20 10:13 96.3 11/17/20 10:05 20 Room Air Laboratory Data Labs 24H Laboratory Tests 2 11/17/20 10:10: Immature Granulocyte % (Auto) 5.0H, Neutrophils (%) (Auto) 53.4, Lymphocytes (%) (Auto) 26.8, Monocytes (%) (Auto) 13.6H, Eosinophils (%) (Auto) 0.4, Basophils (%) (Auto) 0.8, Neutrophils # (Auto) 5.0, Lymphocytes # (Auto) 2.5, Monocytes # (Auto) 1.3H, Eosinophils # (Auto) 0.0, Basophils # (Auto) 0.1, Nucleated Red Blood Cells % (auto) 16.2H 11/17/20 11:16: Anion Gap 8, Glomerular Filtration Rate 46.7, Calcium Level 6.1L, Total Bilirubin 14.1H, Direct Bilirubin 11.6H, Aspartate Amino Transf (AST/SGOT) 355H, Alanine Aminotransferase (ALT/SGPT) 142H, Alkaline Phosphatase 1622H, Total Creatine Kinase 333H, Creatine Kinase MB 2.0, Creatine Kinase MB Relative Index 0.60, Troponin I 0.03, Total Protein 4.9L, Albumin 1.8L, Albumin/Globulin Ratio 0.6L, Coronavirus (COVID-19)(PCR) NEGATIVE, Influenza Type A (RT-PCR) NEGATIVE, Influenza Type B (RT-PCR) NEGATIVE, Respiratory Syncytial Virus (PCR) NEGATIVE CBC/BMP Laboratory Tests 11/17/20 10:10 11/17/20 11:16 Assessment/Plan 60-year-old female with metastatic breast cancer with mets to bones, lungs and liver, cholestatic jaundice from malignant infiltration of liver, with extremely poor prognosis however has refused hospice referral when discussed by Dr. Rivera this a.m. Her labs from yesterday did show some hypokalemia and hypocalcemia. She wanted to be admitted to the hospital for extreme generalized weakness and failure to thrive so was sent to the emergency room from the oncology office. She reported that she had 2 falls in the past week without any trauma. She has been using the walker for the past week in spite of that she fell. The last fall was yesterday when she fell on her right side and her buttocks. She hit her chest wall and now she complains of a dull aching pain in the right chest wall about 5/10 in intensity , with no radiation. She reported that her legs are very weak and her knees just gave out. She also complain of some dull aching pain in the hips and the low back. Work-up in the ED showed hypokalemia with a potassium of 2.9 hypocalcemia with a calcium of 6.1 and severe cholestatic jaundice with a total bili of 14 direct of 12 elevated AST ALT and alkaline phosphatase. I again discussed advantage directives with her and she wanted to be full code. Did not want to be referred to hospice She is admitted for generalized weakness failure to thrive. Generalized weakness and failure to thrive This is due to metastatic cancer Unfortunately I do not think there is going to be much improvement in her weakness Will request PT and OT evaluation Hypokalemia We will replace Hypocalcemia Will replace Hyponatremia Likely due to chlorthalidone We will stop that Cholestatic jaundice Due to infiltration of the liver by malignancy No treatment available for this Metastatic breast cancer with mets to bones lungs liver lymph nodes Extremely poor prognosis probably chest weeks. Does not want to go into hospice unless she is in severe pain. Wants to be resuscitated Recent deep vein thrombosis in association with a Chemo-Port Patient is on Lovenox at home. Will check PT/INR before resuming Lovenox Anxiety and depression Continue bupropion and citalopram History of hyperlipidemia We will stop atorvastatin because of the elevated liver enzyme Severe protein calorie malnutrition With albumin of 1.8, bitemporal wasting, wasting of small muscles of hands and feet. Due to progressing malignancy Plan / VTE VTE Prophylaxis Ordered?: Yes VIR[place]IA BRAVO MD Nov 17, 2020 14:13
[2020-11-17 18:55] LABS: INR 1.23; PROTHROMBIN TIME 15.8 SECONDS (12.5-14.3)
[2020-11-17 18:56] LABS: PARTIAL THROMBOPLASTIN TIME 37.6 SECONDS (24.2-38.5)
[2020-11-17 20:00] VITALS: BP 117/57
[2020-11-17] MEDS: CitaloPRAM (CeleXA) 10 MG TABLET PO SCH (20:34)
[2020-11-17] MEDS: KCL 10MEQ/100ML SWI (KRUN) 10 MEQ in IV 1 EA IV SCH (20:35)
[2020-11-17] MEDS: buPROPion **XL** TABLET 150MG (WELLBUTRIN XL) PO SCH (20:35)
[2020-11-17] MEDS: GABAPENTIN 300 MG CAP PO SCH (20:43)
[2020-11-17] MEDS: POTASSIUM CHLORIDE 10 MEQ SR TABLET PO SCH ×3 (20:44→23:36)
[2020-11-17] MEDS ORDERED: ATORVASTATIN 20 MG TAB PO SCH (21:00)
[2020-11-17] MEDS ORDERED: CALCIUM CARBONATE 500 MG CHEW U/D PO PRN (23:55)
[2020-11-18] VITALS: BP 116/58
[2020-11-18] MEDS ORDERED: DICYCLOMINE 10 MG CAP PO ONE
[2020-11-18 01:10] LABS: CREATININE FOR GFR 1.23 MG/DL (0.55-1.30); GLOMERULAR FILTRATION RATE 47.1 (>45); POTASSIUM SERUM 2.8 MEQ/L (3.5-5.1)
[2020-11-18] MEDS ORDERED: CALCIUM GLUCONATE 1,000 MG in D5W MINI-BAG PLUS 100 ML IV ONE ×2 (01:15→08:00)
[2020-11-18 02:06] LABS: MAGNESIUM LEVEL 2.1 MG/DL (1.8-2.4)
[2020-11-18] MEDS: POTASSIUM CHLORIDE 10% LIQ 20 MEQ/15 ML UDC PO SCH ×2 (02:07→03:20)
[2020-11-18 04:00] VITALS: BP 121/63
[2020-11-18 05:37] LABS: HEMATOCRIT 36.2 % (36.0-47.0); HEMOGLOBIN 11.8 g/dl (12.0-15.5); MEAN CORPUSCULAR HEMOGLOBIN 30.3 pg (27.0-33.0); MEAN CORPUSCULAR HGB CONC 32.6 g/dl (32.0-36.5); MEAN CORPUSCULAR VOLUME 93.1 fl (80.0-96.0); PLATELET COUNT, AUTOMATED 184 10^3/uL (150-450); RED BLOOD COUNT 3.89 10^6/uL (4.00-5.40); WHITE BLOOD COUNT 8.4 10^3/uL (4.0-10.0)
[2020-11-18 06:13] LABS: ALBUMIN 1.6 GM/DL (3.2-5.2); BILIRUBIN,TOTAL 15.1 MG/DL (0.2-1.0); CALCIUM LEVEL 6.5 MG/DL (8.8-10.2); CREATININE FOR GFR 1.05 MG/DL (0.55-1.30); GLOMERULAR FILTRATION RATE 56.5 (>45); POTASSIUM SERUM 5.5 MEQ/L (3.5-5.1); TOTAL PROTEIN 5.5 GM/DL (6.4-8.2)
[2020-11-18 08:00] VITALS: BP 119/56
[2020-11-18] MEDS: GABAPENTIN 300 MG CAP PO SCH ×2 (10:06→22:33)
[2020-11-18] MEDS: buPROPion **XL** TABLET 150MG (WELLBUTRIN XL) PO SCH (10:06)
[2020-11-18] MEDS: PANTOPRAZOLE 40MG TAB (PROTONIX) PO SCH ×2 (10:09→22:33)
--- NOTE | 2020-11-18 10:48 | ECGEPIP ---
[facility] - ED Test Date: 2020-11-17 Pat Name: ROOSEVELT DALTON Department: Room: - Gender: Female Community Health Coordinator: LR : 1960 Requested By: KATELYN Hickman Order Number: [id number] Reading MD: Zoila Martínez Measurements Intervals [place] Rate: 102 P: 58 WV: 144 QRS: 32 QRSD: 76 T: 49 QT: 394 QTc: 513 Interpretive Statements Sinus tachycardia Low voltage QRS similar 10/10/20 Electronically Signed on 11-18-2020 10:48:03 EDT by Zoila Martínez
[2020-11-18] MEDS: CitaloPRAM (CeleXA) 10 MG TABLET PO SCH (11:35)
[2020-11-18] MEDS: predniSONE 1 MG TAB PO SCH (11:35)
--- NOTE | 2020-11-18 13:37 | IPNPDOC ---
Subjective Date Seen The patient was seen on 11/18/20. Subjective Chief Complaint/HPI No acute events over night. Complains of heart burn. No vomiting or diarrhea. No fever or chills.Continues to feel very weak and washed out. PT to evaluate. Objective Physical Examination General Exam: Positive: Alert, Cooperative, No Acute Distress Eye Exam: Positive: PERRLA, Conjunctiva & lids normal, EOMI, Sclera icteric ENT Exam: Positive: Atraumatic, Mucous membr. moist/pink, Pharynx Normal, Other ENT (Bitemporal wasting) Neck Exam: Positive: Supple; Negative: JVD, thyromegaly Chest Exam: Positive: Clear to auscultation, Normal air movement Heart Exam: Positive: Rate Normal, Regular Rhythm, Normal S1, Normal S2; Negative: Murmurs, Rubs Telemetry: Positive: No significant arrhythmia Abdomen Exam: Positive: Normal bowel sounds, Soft, Hernia; Negative: BS Hyperactive, BS Hypoactive, Tenderness Extremity Exam: Positive: Edema (2+), Normal pulses; Negative: Clubbing, Cyanosis Skin Exam: Positive: Other skin issue (Jaundice) Neuro Exam: Positive: Normal Speech, Strength at 5/5 X4 ext, Normal Tone Psych Exam: Positive: Memory Intact, Oriented x 3 Assessment /Plan Assessment 60-year-old female with metastatic breast cancer with mets to bones, lungs and liver, cholestatic jaundice from malignant infiltration of liver, with extremely poor prognosis however has refused hospice referral when discussed by Dr. Rivera this a.m. Her labs from yesterday did show some hypokalemia and hypocalcemia. She wanted to be admitted to the hospital for extreme generalized weakness and failure to thrive so was sent to the emergency room from the oncology office. She reported that she had 2 falls in the past week without any trauma. She has been using the walker for the past week in spite of that she fell. The last fall was yesterday when she fell on her right side and her buttocks. She hit her chest wall and now she complains of a dull aching pain in the right chest wall about 5/10 in intensity , with no radiation. She reported that her legs are very weak and her knees just gave out. She also complain of some dull aching pain in the hips and the low back. Work-up in the ED showed hypokalemia with a potassium of 2.9 hypocalcemia with a calcium of 6.1 and severe cholestatic jaundice with a total bili of 14 direct of 12 elevated AST ALT and alkaline phosphatase. I again discussed advantage directives with her and she wanted to be full code. Did not want to be referred to hospice She is admitted for generalized weakness failure to thrive with multiple electrolyte abnormalities. Generalized weakness and failure to thrive Recurrent falls due to extreme weakness. This is likely due to metastatic cancer and likely worsened by hypokalemia and hyponatremia. Unfortunately I do not think there is going to be much improvement in her weakness. May feel a little better with the correction of electrolyte imbalance Will request PT and OT evaluation Hypokalemia replaced. will monitor Hypocalcemia Will replace Hyponatremia improving Likely due to chlorthalidone, stopped Cholestatic jaundice Due to infiltration of the liver by malignancy No treatment available for this Metastatic breast cancer with mets to bones, lungs, liver Extremely poor prognosis probably just weeks. Does not want to go into hospice unless she is in severe pain. Wants to be resuscitated Recent deep vein thrombosis in association with a Chemo-Port Patient is on Lovenox at home. will continue Anxiety and depression Continue bupropion and citalopram History of hyperlipidemia We will stop atorvastatin because of the elevated liver enzymes Severe protein calorie malnutrition With albumin of 1.8, bitemporal wasting, wasting of small muscles of hands and feet. Due to progressing malignancy Plan/VTE VTE Prophylaxis Ordered?: Yes VS, I&O, 24H, Fishbone Vital Signs/I&O Vital Signs Date Time Temp Pulse Resp B/P (MAP) Pulse Ox O2 Delivery O2 Flow Rate FiO2 11/18/20 04:00 98.3 90 16 121/63 (82) 100 Room Air I&O- Last 24 Hours up to 6 AM 11/18/20 06:00 Intake Total 970 ml Output Total 475 ml Balance 495 ml Laboratory Data 24H LABS Laboratory Tests 2 11/17/20 10:10: Immature Granulocyte % (Auto) 5.0H, Neutrophils (%) (Auto) 53.4, Lymphocytes (%) (Auto) 26.8, Monocytes (%) (Auto) 13.6H, Eosinophils (%) (Auto) 0.4, Basophils (%) (Auto) 0.8, Neutrophils # (Auto) 5.0, Lymphocytes # (Auto) 2.5, Monocytes # (Auto) 1.3H, Eosinophils # (Auto) 0.0, Basophils # (Auto) 0.1, Nucleated Red Blood Cells % (auto) 16.2H 11/17/20 11:16: Anion Gap 8, Glomerular Filtration Rate 46.7, Calcium Level 6.1L, Total Bilirubin 14.1H, Direct Bilirubin 11.6H, Aspartate Amino Transf (AST/SGOT) 355H, Alanine Aminotransferase (ALT/SGPT) 142H, Alkaline Phosphatase 1622H, Total Creatine Kinase 333H, Creatine Kinase MB 2.0, Creatine Kinase MB Relative Index 0.60, Troponin I 0.03, Total Protein 4.9L, Albumin 1.8L, Albumin/Globulin Ratio 0.6L, Coronavirus (COVID-19)(PCR) NEGATIVE, Influenza Type A (RT-PCR) NEGATIVE, Influenza Type B (RT-PCR) NEGATIVE, Respiratory Syncytial Virus (PCR) NEGATIVE 11/17/20 18:29: Prothrombin Time 15.8H, Prothromb Time International Ratio 1.23, Activated P artial Thromboplast Time 37.6 11/18/20 00:20: Anion Gap 9, Glomerular Filtration Rate 47.1, Calcium Level 6.0L, Whole Blood Ionized Calcium 3.2*L, Magnesium Level 2.1 11/18/20 05:12: Nucleated Red Blood Cells % (auto) 15.7H, Anion Gap 9, Glomerular Filtration Rate 56.5, Calcium Level 6.5L, Total Bilirubin 15.1*H, Aspartate Amino Transf (AST/SGOT) 360H, Alanine Aminotransferase (ALT/SGPT) 143H, Alkaline Phosphatase 1669H, Total Protein 5.5L, Albumin 1.6L, Albumin/Globulin Ratio 0.4L CBC/BMP Laboratory Tests 11/17/20 10:10 11/17/20 11:16 11/18/20 00:20 11/18/20 05:12 VIRGINIA BRAVO MD Nov 18, 2020 07:46
[2020-11-18 22:00] VITALS: BP 138/84
[2020-11-19 06:00] VITALS: BP 105/55
[2020-11-19 08:17] LABS: HEMATOCRIT 36.2 % (36.0-47.0); MEAN CORPUSCULAR HEMOGLOBIN 31.2 pg (27.0-33.0); MEAN CORPUSCULAR HGB CONC 33.1 g/dl (32.0-36.5); PLATELET COUNT, AUTOMATED 129 10^3/uL (150-450); RED BLOOD COUNT 3.85 10^6/uL (4.00-5.40); WHITE BLOOD COUNT 7.7 10^3/uL (4.0-10.0)
[2020-11-19 08:41] LABS: BASOPHILS 1 % (0-1); EOSINOPHILS 1 % (0-3); LYMPHOCYTES 21 % (16-44); METAMYELOCYTES 2 % (0-0); MONOCYTES 8 % (0-5); MYELOCYTES 3 % (0-0); NEUTROPHILS 63 % (28-66)
[2020-11-19 08:42] LABS: PLATELET CLUMPS SMALL AMT; PLATELET ESTIMATE DECREASED (NORMAL)
[2020-11-19 08:43] LABS: ANISOCYTOSIS 2+; POLYCHROMASIA 1+
[2020-11-19 08:47] LABS: SCHISTOCYTES 1+
[2020-11-19] MEDS ORDERED: CALCIUM GLUCONATE 1,000 MG in D5W MINI-BAG PLUS 100 ML IV ONE (09:00)
[2020-11-19 09:28] LABS: ALBUMIN 1.4 GM/DL (3.2-5.2); BILIRUBIN,TOTAL 15.7 MG/DL (0.2-1.0); CALCIUM LEVEL 6.8 MG/DL (8.8-10.2); GLOMERULAR FILTRATION RATE 59.8 (>45); POTASSIUM SERUM 4.7 MEQ/L (3.5-5.1); TOTAL PROTEIN 5.1 GM/DL (6.4-8.2)
[2020-11-19] MEDS: CALCIUM CARBONATE 500 MG CHEW U/D PO SCH ×2 (09:30→20:54)
[2020-11-19] MEDS: GABAPENTIN 300 MG CAP PO SCH ×2 (09:31→20:55)
[2020-11-19] MEDS: predniSONE 1 MG TAB PO SCH (09:31)
[2020-11-19] MEDS: CitaloPRAM (CeleXA) 10 MG TABLET PO SCH (09:32)
[2020-11-19] MEDS: PANTOPRAZOLE 40MG TAB (PROTONIX) PO SCH ×2 (09:32→20:55)
[2020-11-19] MEDS: POTASSIUM CHLORIDE 10 MEQ SR TABLET PO SCH ×2 (09:33→20:55)
[2020-11-19] MEDS: buPROPion **XL** TABLET 150MG (WELLBUTRIN XL) PO SCH (09:44)
--- NOTE | 2020-11-19 09:57 | IPNPDOC ---
Subjective Date Seen The patient was seen on 11/19/20. Subjective Chief Complaint/HPI Patient remains very fatigued was unable to participate in PT yesterday. No new complaints. She is considering Hospice . Today she is going to discuss with her code status and is considering becoming DNR. I did tell her p elishasis is in weeks rather than months. Objective Physical Examination General Exam: Positive: Alert, Cooperative, No Acute Distress Eye Exam: Positive: PERRLA, Conjunctiva & lids normal, EOMI, Sclera icteric ENT Exam: Positive: Atraumatic, Mucous membr. moist/pink, Pharynx Normal, Other ENT (Bitemporal wasting) Neck Exam: Positive: Supple; Negative: JVD, thyromegaly Chest Exam: Positive: Clear to auscultation, Normal air movement Heart Exam: Positive: Rate Normal, Regular Rhythm, Normal S1, Normal S2; Negative: Murmurs, Rubs Telemetry: Positive: No significant arrhythmia Abdomen Exam: Positive: Normal bowel sounds, Soft, Hernia; Negative: BS Hyperactive, BS Hypoactive, Tenderness Extremity Exam: Positive: Edema (2+), Normal pulses; Negative: Clubbing, Cyanosis Skin Exam: Positive: Other skin issue (Jaundice) Neuro Exam: Positive: Normal Speech, Strength at 5/5 X4 ext, Normal Tone Psych Exam: Positive: Memory Intact, Oriented x 3 Assessment /Plan Assessment 60-year-old female with metastatic breast cancer with mets to bones, lungs and liver, cholestatic jaundice from malignant infiltration of liver, with extremely poor prognosis however has refused hospice referral when discussed by Dr. Rivera this a.m. Her labs from yesterday did show some hypokalemia and hypocalcemia. She wanted to be admitted to the hospital for extreme generalized weakness and failure to thrive so was sent to the emergency room from the oncology office. She reported that she had 2 falls in the past week without any trauma. She has been using the walker for the past week in spite of that she fell. The last fall was yesterday when she fell on her right side and her buttocks. She hit her chest wall and now she complains of a dull aching pain in the right chest wall about 5/10 in intensity , with no radiation. She reported that her legs are very weak and her knees just gave out. She also complain of some dull aching pain in the hips and the low back. Work-up in the ED showed hypokalemia with a potassium of 2.9 hypocalcemia with a calcium of 6.1 and severe cholestatic jaundice with a total bili of 14 direct of 12 elevated AST ALT and alkaline phosphatase. I again discussed advantage directives with her and she wanted to be full code. Did not want to be referred to hospice She is admitted for generalized weakness failure to thrive with multiple electrolyte abnormalities. Generalized weakness and failure to thrive Recurrent falls due to extreme weakness. This is likely due to metastatic cancer and likely worsened by hypokalemia and hyponatremia. Unfortunately I do not think there is going to be much improvement in her weakness and fatigue. Today she seems to understand it. She considering hospice and willing to speak with them tomorrow. Hypokalemia replaced. will monitor Hypocalcemia replaced Hyponatremia again down to 125. THid may be due to liver issue. Will keep off the chlorthalidone Cholestatic jaundice Due to infiltration of the liver by malignancy No treatment available for this Metastatic breast cancer with mets to bones, lungs, liver Extremely poor prognosis probably just weeks. Recent deep vein thrombosis in association with a Chemo-Port Patient is was on Lovenox at home but stopped few days before admission. will not restart as with the worsening liver functions i think her INRs will rise and then there will be high risk of bleeding. Anxiety and depression Continue bupropion and citalopram History of hyperlipidemia We will stop atorvastatin because of the elevated liver enzymes Severe protein calorie malnutrition With albumin of 1.4, bitemporal wasting, wasting of small muscles of hands and feet. Due to progressing malignancy Plan/VTE VTE Prophylaxis Ordered?: Yes VS, I&O, 24H, Fishbone Vital Signs/I&O Vital Signs Date Time Temp Pulse Resp B/P (MAP) Pulse Ox O2 Delivery O2 Flow Rate FiO2 11/19/20 06:00 96.7 101 18 105/55 (72) 99 Room Air I&O- Last 24 Hours up to 6 AM 11/19/20 06:00 Intake Total 810 ml Output Total 200 ml Balance 610 ml VIR[place]IA BRAVO MD Nov 19, 2020 07:33
[2020-11-19 14:00] VITALS: BP 138/78
[2020-11-19] MEDS: ONDANSETRON 4MG/2ML VIAL IV PRN (14:35)
[2020-11-19] MEDS: diphenhydrAMINE 25MG CAP PO PRN (20:55)
[2020-11-19 22:00] VITALS: BP 119/75
[2020-11-20 06:00] VITALS: BP 106/77
[2020-11-20] MEDS: PANTOPRAZOLE 40MG TAB (PROTONIX) PO SCH ×2 (08:45→22:13)
[2020-11-20] MEDS: GABAPENTIN 300 MG CAP PO SCH ×2 (08:45→22:13)
[2020-11-20] MEDS: buPROPion **XL** TABLET 150MG (WELLBUTRIN XL) PO SCH (08:45)
[2020-11-20] MEDS: predniSONE 1 MG TAB PO SCH (08:45)
[2020-11-20] MEDS: POTASSIUM CHLORIDE 10 MEQ SR TABLET PO SCH ×2 (08:45→22:13)
[2020-11-20] MEDS: CitaloPRAM (CeleXA) 10 MG TABLET PO SCH (08:45)
[2020-11-20] MEDS: CALCIUM CARBONATE 500 MG CHEW U/D PO SCH ×2 (08:45→22:13)
--- NOTE | 2020-11-20 12:29 | IPNPDOC ---
Subjective Date Seen The patient was seen on 11/20/20. Subjective Chief Complaint/HPI Patient wants to go home with hospice . 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 Objective Physical Examination General Exam: Positive: Alert, Cooperative, No Acute Distress Eye Exam: Positive: PERRLA, Conjunctiva & lids normal, EOMI, Sclera icteric ENT Exam: Positive: Atraumatic, Mucous membr. moist/pink, Pharynx Normal, Other ENT (Bitemporal wasting) Neck Exam: Positive: Supple; Negative: JVD, thyromegaly Chest Exam: Positive: Clear to auscultation, Normal air movement Heart Exam: Positive: Rate Normal, Regular Rhythm, Normal S1, Normal S2; Negative: Murmurs, Rubs Telemetry: Positive: No significant arrhythmia Abdomen Exam: Positive: Normal bowel sounds, Soft, Hernia; Negative: BS Hyperactive, BS Hypoactive, Tenderness Extremity Exam: Positive: Edema (2+), Normal pulses; Negative: Clubbing, Cyanosis Skin Exam: Positive: Other skin issue (Jaundice) Neuro Exam: Positive: Normal Speech, Strength at 5/5 X4 ext, Normal Tone Psych Exam: Positive: Memory Intact, Oriented x 3 Assessment /Plan Assessment 60-year-old female with metastatic breast cancer with mets to bones, lungs and liver, cholestatic jaundice from malignant infiltration of liver, with extremely poor prognosis however has refused hospice referral when discussed by Dr. Rivera this a.m. Her labs from yesterday did show some hypokalemia and hypocalcemia. She wanted to be admitted to the hospital for extreme generalized weakness and failure to thrive so was sent to the emergency room from the oncology office. She reported that she had 2 falls in the past week without any trauma. She has been using the walker for the past week in spite of that she fell. The last fall was yesterday when she fell on her right side and her buttocks. She hit her chest wall and now she complains of a dull aching pain in the right chest wall about 5/10 in intensity , with no radiation. She reported that her legs are very weak and her knees just gave out. She also complain of some dull aching pain in the hips and the low back. She was found to have multiple electrolyte abnormalities, cholestatic jaundice from infiltration of the liver by cancer. Her weakness and fatigue did not improve after correction of electrolytes. We again had a discussion about advance directives and prognosis. Today she wanted to be transitioned to TRUST CLERK measures and wants to go home with Hospice. Metastatic breast cancer with mets to bones, lungs, liver with severe cholestatic jaundice due to liver infiltration by malignancy. 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 Generalized weakness and failure to thrive Recurrent falls due to extreme weakness. This is due to metastatic cancer and likely worsened by hypokalemia and hyponatremia. Hypokalemia replaced. Hypocalcemia replaced Hyponatremia again down to 125. This is likely due to liver issue. Chlorthalidone stopped. Cholestatic jaundice Due to infiltration of the liver by malignancy No treatment available for this Recent deep vein thrombosis in association with a Chemo-Port lovenox stopped. TRUST CLERK now. Anxiety and depression Continue bupropion and citalopram History of hyperlipidemia We will stop atorvastatin because of the elevated liver enzymes Severe protein calorie malnutrition With albumin of 1.4, bitemporal wasting, wasting of small muscles of hands and feet. Due to progressing malignancy Dispo: Home with Hospice Plan/VTE VTE Prophylaxis Ordered?: Yes VS, I&O, 24H, Fishbone Vital Signs/I&O Vital Signs Date Time Temp Pulse Resp B/P (MAP) Pulse Ox O2 Delivery O2 Flow Rate FiO2 11/20/20 06:00 97.3 110 20 106/77 (87) 99 Room Air I&O- Last 24 Hours up to 6 AM 11/20/20 06:00 Intake Total 1080 ml Balance 1080 ml VIRGINIA BRAVO MD Nov 20, 2020 10:39
[2020-11-20] MEDS: diphenhydrAMINE 25MG CAP PO PRN (22:13)
[2020-11-21] MEDS: buPROPion **XL** TABLET 150MG (WELLBUTRIN XL) PO SCH (08:21)
[2020-11-21] MEDS: PANTOPRAZOLE 40MG TAB (PROTONIX) PO SCH ×2 (08:22→20:48)
[2020-11-21] MEDS: predniSONE 1 MG TAB PO SCH (08:22)
[2020-11-21] MEDS: POTASSIUM CHLORIDE 10 MEQ SR TABLET PO SCH ×2 (08:22→20:47)
[2020-11-21] MEDS: CALCIUM CARBONATE 500 MG CHEW U/D PO SCH ×2 (08:22→20:47)
[2020-11-21] MEDS: CitaloPRAM (CeleXA) 10 MG TABLET PO SCH (08:22)
[2020-11-21] MEDS: GABAPENTIN 300 MG CAP PO SCH ×2 (08:22→20:47)
--- NOTE | 2020-11-21 13:57 | IPNPDOC ---
Text Note Date of Service The patient was seen on 11/21/20. NOTE Subjective: -No acute complaints this morning -Aware that plan is for home tomorrow with hospice Objective: General : Alert, Cooperative, No Acute Distress Eyes: PERRLA, Conjunctiva & lids normal, EOMI, icteric sclerae ENT: Bitemporal wasting, MMM Neck: Supple Chest: Clear to auscultation, Normal air movement Heart: Rate Normal, Regular Rhythm, Normal S1, Normal S2 Abdomen: Normal bowel sounds, Soft, NTND Extremities: WWP. 2+ edema bilaterally Skin: has Jaundice Neuro: Normal Speech, Strength at 5/5 X4 ext, Normal Tone Psych: Aox3 Labs: none today. 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 Metastatic breast cancer with mets to bones, lungs, liver with severe cholestatic jaundice due to liver infiltration by malignancy. 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 This is due to metastatic cancer and likely worsened by hypokalemia and hyponatremia. Hypokalemia replaced. Hypocalcemia replaced Hyponatremia Chlorthalidone stopped. 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
[2020-11-21] MEDS: ONDANSETRON 4MG/2ML VIAL IV PRN (22:41)
[2020-11-21] MEDS: diphenhydrAMINE 25MG CAP PO PRN (22:42)
[2020-11-22] MEDS ORDERED: HYOS125TA PO (07:59)
[2020-11-22] MEDS ORDERED: ATIV1TAB10 PO (07:59)
[2020-11-22] MEDS ORDERED: MORP20SO3 PO (07:59)
--- NOTE | 2020-11-22 08:12 | DS.PDOC ---
Discharge Summary General Date of Admission Nov 17, 2020 at 15:45 Date of Discharge 11/22/2020 Attending Physician: LESLY NEWMAN MD Discharge Summary PROCEDURES PERFORMED DURING STAY: None ADMITTING DIAGNOSES: Hypokalemia Hypocalcemia Generalized weakness failure to thrive Cholestatic liver injury with jaundice from malignant infiltration of liver DISCHARGE DIAGNOSES: Hypokalemia Hypocalcemia Generalized weakness failure to thrive 2/2 end stage metastatic cancer Cholestatic liver injury with jaundice from malignant infiltration of liver Hypokalemia Metastatic breast cancer with metastases to bones liver and lungs and lymph nodes History of right breast cancer in 2014 triple negative had surgery,radiation and chemo Rheumatoid arthritis Cirrhosis of liver Obstructive jaundice Shingles Anxiety Hiatal hernia Chronic Back pain/ herniated disc COMPLICATIONS/CHIEF COMPLAINT: Hypokalemia & Metastasis From Breast Cancer. HISTORY OF PRESENT ILLNESS: 60-year-old W with metastatic breast cancer with mets to bones, lungs and liver, cholestatic jaundice from malignant infiltration of liver, with extremely poor prognosis who recently refused hospice referral when discussed by Dr. Rivera (oncology) on the morning of ED presentation during oncology clinic appointment before she presented. Her outpatient labs from the day before had shown some hypokalemia and hypocalcemia and she presented to the ED with extreme generalized weakness and failure to thrive from the oncology office. She reported that she had 2 falls in the leading week without any trauma. She had been using the walker for the past week. On her most recently fall she had hit her chest wall and she presented complaining of a dull aching pain in the right chest wall about 5/10 in intensity , with no radiation. She reported that her legs are very weak and her knees just gave out. She also complained of some dull aching pain in the hips and the low back. HOSPITAL COURSE: Work-up in the ED showed hypokalemia with a potassium of 2.9 hypocalcemia with a calcium of 6.1 and severe cholestatic jaundice with a total bili of 14 direct of 12 elevated AST ALT and alkaline phosphatase and she was admitted for generalized weakness failure to thrive. Her electrolytes were repleted and she eventually agreed to a hospice consult and ultimately chose to be discharged home with home hospice. DISCHARGE MEDICATIONS: Please see below. ALLERGIES: Please see below. PHYSICAL EXAMINATION ON DISCHARGE: VITAL SIGNS: Please see below. General : Alert, Cooperative, No Acute Distress Eyes: PERRLA, Conjunctiva & lids normal, EOMI, icteric sclerae ENT: Bitemporal wasting Chest: Clear to auscultation Heart: Rate Normal, Regular Rhythm, Normal S1, Normal S2 Abdomen: Normal bowel sounds, Soft, NTND Extremities: WWP. 2+ edema bilaterally Skin: has Jaundice LABORATORY DATA: Please see below. IMAGING: R Ribs XR: EKG monitoring electrodes and a a left internal jugular [id number] catheter are noted. There are surgical clips in the right axillary soft tissues. The lungs are symmetrically aerated and clear on PA chest radiograph. Pleural angles are sharp. No infiltrate or pneumothorax is seen. Multiple views of the right rib cage show some mottled sclerotic change consistent with patient's known skeletal metastatic disease. No lytic lesion or pathologic fracture is seen. No traumatic fracture is appreciated. There are clips in right upper quadrant the abdomen. Vertebral body heights are preserved with mild discogenic spurs. IMPRESSION: No right rib fracture noted. No acute cardiopulmonary disease. Known blastic skeletal metastatic changes. Lumbosacral spine XR: Lumbar vertebral body heights are preserved. No fracture or collapse is seen. There are degenerative disc changes mild in degree at L4-5, L3-4, and L5-S1. Discogenic spurring is seen at the thoracolumbar junction as well. There is some facet joint hypertrophy bilaterally at L5-S1 and L4-5. Psoas margins symmetric. Pedicles and posterior elements show no evidence of fracture. There is a nearly diffuse extensive pattern of sclerotic change throughout the visualized skeleton consistent with known blastic metastatic involvement. No lytic lesion is appreciated. IMPRESSION: Widespread blastic skeletal metastatic involvement. No pathologic or traumatic fracture seen. Mild degenerative spondylosis changes. PROGNOSIS: poor ACTIVITY: As tolerated DIET: as tolerated DISCHARGE PLAN: Home with hospice DISPOSITION: Home with hospice DISCHARGE INSTRUCTIONS: Home with hospice ITEMS TO FOLLOWUP ON ON OUTPATIENT: Comfort measures DISCHARGE CONDITION: Stable TIME SPENT ON DISCHARGE: 34 minutes. Vital Signs/I&Os Vital Signs Date Time Temp Pulse Resp B/P (MAP) Pulse Ox O2 Delivery O2 Flow Rate FiO2 11/20/20 06:00 97.3 110 20 106/77 (87) 99 Room Air I&O- Last 24 Hours up to 6 AM 11/22/20 06:00 Intake Total 650 ml Balance 650 ml Discharge Medications Scheduled Bupropion Hcl (Bupropion Xl) 150 Mg Tab, 150 MG PO DAILY, (Reported) Citalopram Hydrobromide (Celexa) 10 Mg Tablet, 10 MG PO DAILY, (Reported) Esomeprazole Magnesium (Esomeprazole Magnesium) 40 Mg Cap, 40 MG PO DAILY, (R eported) Gabapentin (Gabapentin) 300 Mg Capsule, 600 MG PO BID, (Reported) Hydroxyzine HCl (Hydroxyzine HCl) 25 Mg Tablet, 25 MG PO QHS, (Reported) Scheduled PRN Hyoscyamine Sulfate (Hyoscyamine Sulfate) 0.125 Mg Tab.subl, 0.125 MG PO Q4HP PRN for TERMINAL SECRETIONS Use sublingually if unable to swallow Lorazepam (Ativan) 0.5 Mg Tablet, 0.5 MG PO Q4HP PRN for ANXIETY/AGITATION Use sublingually if unable to swallow Morphine Sulfate (Morphine Sulfate) 100 Mg/5 Ml Solution, 0.25-1 ML PO Q2H PRN for PAIN OR DYSPNEA Use sublingually if unable to swallow Ondansetron HCl (Ondansetron HCl) 8 Mg Tablet, 8 MG PO Q8H PRN for NAUSEA OR VOMITING Allergies Coded Allergies: adhesive (Verified Allergy, Intermediate, rash, 04/18/20) adhesives; steri strips; bandaides ; paper tape blister tega derm if x 24hrs nitrofurantoin (Verified Adverse Reaction, Intermediate, vomiting, 04/18/20) LESLY NEWMAN MD Nov 22, 2020 08:12
[2020-11-22] MEDS: buPROPion **XL** TABLET 150MG (WELLBUTRIN XL) PO SCH (08:56)
[2020-11-22] MEDS: CitaloPRAM (CeleXA) 10 MG TABLET PO SCH (08:57)
[2020-11-22] MEDS: PANTOPRAZOLE 40MG TAB (PROTONIX) PO SCH (08:57)
[2020-11-22] MEDS: CALCIUM CARBONATE 500 MG CHEW U/D PO SCH (08:57)
[2020-11-22] MEDS: predniSONE 1 MG TAB PO SCH (08:57)
[2020-11-22] MEDS: POTASSIUM CHLORIDE 10 MEQ SR TABLET PO SCH (08:57)
[2020-11-22] MEDS: GABAPENTIN 300 MG CAP PO SCH (08:57)
== END 2020-11-22 12:15 | disposition hospice, home (50) | DRG 421 ==
LOC: M ED 09:52 → M ED INP 15:45 → ENRESERV 16:05 → M PCU 16:52 → M MS5PR 11-18 13:48
PROVIDERS: ADMIT Internal Medicine Nephrology; ATTEND Internal Medicine
DX: R62.7 Adult failure to thrive (principal); E43 Unspecified severe protein-calorie malnutrition; C79.51 Secondary malignant neoplasm of bone; C78.00 Secondary malignant neoplasm of unspecified lung; C78.7 Secondary malignant neoplasm of liver and intrahepatic bile duct; R17 Unspecified jaundice; C50.919 Malignant neoplasm of unspecified site of unspecified female breast; R53.1 Weakness; E87.6 Hypokalemia; E83.51 Hypocalcemia; Z79.899 Other long term (current) drug therapy; Z91.040 Latex allergy status; Z88.8 Allergy status to other drugs, medicaments and biological substances; M06.9 Rheumatoid arthritis, unspecified; E66.9 Obesity, unspecified; E78.5 Hyperlipidemia, unspecified; Z86.16 Personal history of COVID-19; E87.1 Hypo-osmolality and hyponatremia; F41.9 Anxiety disorder, unspecified; F32.9 Major depressive disorder, single episode, unspecified; Z66 Do not resuscitate; Z51.5 Encounter for palliative care